=== PATIENT | female | born 1950 | race Caucasian/White ===

== ENCOUNTER 2016-12-04 14:34 | Inpatient (IN) | payer MEDICARE ==
[~2016-12-04] VITALS: Ht 167.6 cm; Wt 86.4 kg
[~2016-12-04 14:34] MED LIST: ALBU2.5V5 NEB; ASPI325T4 PO; ATOR20TA58 PO; BUPR150T6 PO; DICL75TA PO; FLUC10SU PO; FLUO10CA13 PO; GLIM4TAB2 PO; HYDR-971 PO; IRON45TA3 PO; LEVO112T4 PO; LEVO25TA4 PO; LISI1TAB7 PO; LISI2.5T PO; METF10002 PO; OXYC-323 PO; VENTOLIN HFA18 GM INH
[2016-12-04] MEDS ORDERED: IPRATRPIUM/ALBUTEROL 0.5/2.5MG 3 ML NEBU. NEB ONE (15:15)
[2016-12-04 15:43] LABS: BASO % 1 % (0-3); EOS % 1 % (0-3); HEMATOCRIT 28.7 % (36.0-47.0); HEMOGLOBIN 9.6 g/dL (12.0-15.5); LYMPH # 0.3 x10^3/uL (1.0-4.8); LYMPH % 8 % (24-48); MEAN CORPUSCULAR HEMOGLOBIN 30 pg (25-35); MEAN CORPUSCULAR HGB CONC 33 g/dL (31-37); MEAN CORPUSCULAR VOLUME 89 fL (79-100); MONO % 9 % (0-9); NEUT % 82 % (31-73); PLATELET COUNT 149 x10^3/uL (140-400); RED BLOOD COUNT 3.24 x10^6/uL (3.50-5.40); RED CELL DISTRIBUTION WIDTH 16.6 % (11.5-14.5); WHITE BLOOD COUNT 4.1 x10^3/uL (4.0-11.0)
[2016-12-04 16:11] LABS: % EOS 1 % (0-5)
[2016-12-04 16:13] LABS: PLT ESTIMATE ADEQUATE (ADEQUATE); POLYCHROMASIA SLIGHT; TOXIC GRANULATION MARKED; TOXIC VACUOLATION SLIGHT
[2016-12-04 16:16] LABS: CALCIUM 8.1 mg/dL (8.5-10.1); CREATININE 1.2 mg/dL (0.6-1.0); GFR 45.2; POTASSIUM 3.6 mmol/L (3.5-5.1)
[2016-12-04 16:22] LABS: ALBUMIN 3.2 g/dL (3.4-5.0); DIRECT BILIRUBIN 0.1 mg/dL (0.0-0.2); TOTAL BILIRUBIN 0.3 mg/dL (0.2-1.0); TOTAL PROTEIN 6.3 g/dL (6.4-8.2)
--- NOTE | 2016-12-04 17:48 | PHYS DOC ---
Past Medical History Past Medical History: Cancer, Diabetes-Type II, High Cholesterol, Hypertension Past Surgical History: Cancer Surgery, Hysterectomy, Knee Replacement, Other Additional Past Surgical Histo: left mastectomy, back x3, pin in toe, right knee replacement Alcohol Use: None Drug Use: None Adult General Chief Complaint Chief Complaint: SHORTNESS OF BREATH HPI HPI 65-year-old female presenting to the emergency department today with shortness of breath. This started approximately 10 PM last night. She complains of chest pain as well that is sharp worse with deep breaths and cough. Associated with a cough that is dry nonproductive. The pain is nonradiating. It is 8 out of 10. She has a history of breast cancer and currently is undergoing chemotherapy. Review of systems is negative for abdominal pain nausea vomiting. Positive for chest pain shortness of breath. All other review of systems is negative unless otherwise noted in history of present illness. Review of Systems Review of Systems SEE ABOVE. Current Medications Current Medications Current Medications Medications (Trade) Dose Ordered Sig/Avi Start Time Stop Time Status Last Admin Dose Admin Albuterol/ Ipratropium (Duoneb) 3 ml 1X ONCE 12/04/16 15:15 12/04/16 15:29 DC 12/04/16 16:31 3 ML Allergies Allergies Allergies Coded Allergies Type Severity Reaction Last Updated Verified simvastatin Adverse Reaction Intermediate MUSCLE CRAMPING 10/13/16 Yes Physical Exam Physical Exam Constitutional: Well developed, well nourished, tachypneic, non-toxic appearance. HENT: Normocephalic, atraumatic, bilateral external ears normal, oropharynx moist, no oral exudates, nose normal. [] Eyes: PERRLA, EOMI, conjunctiva normal, no discharge. [] Neck: Normal range of motion, no tenderness, supple, no stridor. Cardiovascular:Heart rate regular rhythm, no murmur [] Lungs & Thorax: Mild wheezing bilaterally. No crackles present. Abdomen: Bowel sounds normal, soft, no tenderness, no masses, no pulsatile masses. [] Skin: Warm, dry, no erythema, no rash. [] Back: No tenderness, no CVA tenderness. Extremities: No tenderness, no cyanosis, no clubbing, ROM intact, no edema. [] Neurologic: Alert and oriented X 3, normal motor function, normal sensory function, no focal deficits noted. Psychologic: Affect normal, judgement normal, mood normal. [] Current Patient Data Vital Signs Vital Signs Date Time Temp Pulse Resp B/P Pulse Ox O2 Delivery O2 Flow Rate FiO2 12/04/16 16:32 98 Room Air 12/04/16 15:37 98.6 97 24 119/53 98.6 Lab Values Laboratory Tests Test 12/04/16 15:14 White Blood Count 4.1x10^3/uL (4.0-11.0) Red Blood Count 3.24x10^6/uL (3.50-5.40) L Hemoglobin 9.6g/dL (12.0-15.5) L Hematocrit 28.7% (36.0-47.0) L Mean Corpuscular Volume 89fL (79-100) Mean Corpuscular Hemoglobin 30pg (25-35) Mean Corpuscular Hemoglobin Concent 33g/dL (31-37) Red Cell Distribution Width 16.6% (11.5-14.5) H Platelet Count 149x10^3/uL (140-400) Neutrophils (%) (Auto) 82% (31-73) H Lymphocytes (%) (Auto) 8% (24-48) L Monocytes (%) (Auto) 9% (0-9) Eosinophils (%) (Auto) 1% (0-3) Basophils (%) (Auto) 1% (0-3) Neutrophils # (Auto) 3.4x10^3uL (1.8-7.7) Lymphocytes # (Auto) 0.3x10^3/uL (1.0-4.8) L Monocytes # (Auto) 0.4x10^3/uL (0.0-1.1) Eosinophils # (Auto) 0.0x10^3/uL (0.0-0.7) Basophils # (Auto) 0.0x10^3/uL (0.0-0.2) Segmented Neutrophils % 51% (35-66) Band Neutrophils % 32% (0-9) H Lymphocytes % 9% (24-48) L Monocytes % 6% (0-10) Eosinophils % 1% (0-5) Myelocytes % 1% (0-0) H Toxic Granulation Marked Toxic Vacuolation Slight Dohle Bodies Few Platelet Estimate Adequate (ADEQUATE) Polychromasia Slight Sodium Level 137mmol/L (136-145) Potassium Level 3.6mmol/L (3.5-5.1) Chloride Level 100mmol/L (98-107) Carbon Dioxide Level 23mmol/L (21-32) Anion Gap 14 (6-14) Blood Urea Nitrogen 12mg/dL (7-20) Creatinine 1.2mg/dL (0.6-1.0) H Estimated GFR (Cockcroft-Gault) 45.2 Glucose Level 161mg/dL (70-99) H Calcium Level 8.1mg/dL (8.5-10.1) L Total Bilirubin 0.3mg/dL (0.2-1.0) Direct Bilirubin 0.1mg/dL (0.0-0.2) Aspartate Amino Transferase (AST) 12U/L (15-37) L Alanine Aminotransferase (ALT) 22U/L (14-59) Alkaline Phosphatase 29U/L (46-116) L Troponin I Quantitative < 0.017ng/mL (0.000-0.055) TF-Nrv-E-Type Natriuretic Peptide 77pg/mL (0-124) Total Protein 6.3g/dL (6.4-8.2) L Albumin 3.2g/dL (3.4-5.0) L Lipase 63U/L (73-393) L Laboratory Tests 12/04/16 15:14 Laboratory Tests 12/04/16 15:14 EKG EKG []EKG shows sinus rhythm with regular rate. Normal intervals. Normal axis. ST segments are congruent. Not suggestive of ACS. Reviewed by myself. Radiology/Procedures Radiology/Procedures [] Chest x-ray read by myself shows no obvious infiltrate or pneumothorax. Port in place currently. Course & Med Decision Making Course & Med Decision Making Pertinent Labs and Imaging studies reviewed. (See chart for details) [] 65-year-old female presenting to the emergency department today. Vital signs showed afebrile. Increased respiratory rate. Otherwise unremarkable. Physical exam showed wheezing in the lungs bilaterally. Chest x-ray unremarkable. EKG unremarkable. One work sent which showed bandemia. Mild anemia. Chemistry panel shows mildly elevated glucose mildly elevated creatinine. Otherwise unremarkable with a negative troponin. Patient was given duo nebs in the emergency department which mildly improved her symptoms. She was then admitted to our hospital for further evaluation workup and care. Dragon Disclaimer Dragon Disclaimer This electronic medical record was generated, in whole or in part, using a voice recognition dictation system. Departure Departure Impression: Primary Impression: Shortness of breath Additional Impressions: Tachypnea History of breast cancer Disposition: ADMITTED INPATIENT Admitting Physician: Other (reusch) Condition: STABLE Referrals: ZAYRA DISLA MD (PCP) Problem Qualifiers JENNY PARADA MD Dec 04, 2016 17:47
[2016-12-04] MEDS ORDERED: ONDANSETRON PF 4 MG/2 ML VIAL. IV PRN (18:30)
[2016-12-04] MEDS ORDERED: MORPHINE SULFATE 2 MG/ML DISP.SYRIN. IV PRN (18:30)
[2016-12-04 19:59] VITALS: BP 122/49
[2016-12-04] MEDS ORDERED: POTASSIUM CHLORIDE 20 MEQ in IV 1/2 NORMAL SALINE 1,000 ML IV SCH (21:45)
[2016-12-04] MEDS ORDERED: DEXTROSE 50% 25 GM / 50ML DISP.SYRIN. IV PRN (22:15)
[2016-12-04] MEDS: POTASSIUM CL 20MEQ-0.45% NACL 1,000 ML IV SCH (23:17)
[2016-12-04] MEDS: ATORVASTATIN CALCIUM 40 MG TABLET. PO SCH (23:17)
[2016-12-04] MEDS: OXYMETAZOLINE 0.05% NASAL SPRAY 30ML BOTTLE. NS SCH (23:17)
[2016-12-04 23:59] VITALS: BP 96/40
--- NOTE | 2016-12-05 00:03 | HP ---
ADMIT DATE: 12/04/2016 CHIEF COMPLAINT: Shortness of breath. HISTORY OF PRESENT ILLNESS: The patient is a 65-year-old woman, currently undergoing AC chemotherapy for breast cancer. Her most recent chemo was 1 week ago. She presented to the Emergency Room with severe shortness of breath. She relates that she had upper respiratory symptoms for the past 3 days, but shortness of breath became really bad last night at about 10:00 p.m. She also now has a sharp chest pain in the middle of her chest, worse with deep breathing and cough. She does have a frequent cough, which is dry and exacerbated by deep breathing. Pain is 8/10. Denies any fevers or chills. No sick family members, but she continues to work 7 days a week. PAST MEDICAL AND SURGICAL HISTORY: Breast cancer status post left mastectomy, currently on AC chemo status post cycle #3 one week ago, does receive Neulasta. Diabetes mellitus, hypertension, and hypercholesterolemia. Status post hysterectomy for bleeding, status post knee replacement as well as rods in her back for prolapsed discs, also pin in her left big toe. FAMILY HISTORY: Positive for diabetes mellitus in father. Only other breast cancer is in her paternal aunts who had breast cancer in her 30s. 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 Never smoked. No toxic habits. ALLERGIES: SIMVASTATIN. MEDICATIONS: MAR reconciled with home medications. REVIEW OF SYSTEMS: Positive as per HPI. Positive nasal congestion and voice changes in the past couple of days. PHYSICAL EXAMINATION: VITAL SIGNS: From today show a blood pressure of 122/49, heart rate at 94, respiratory rate at 22, although up to 30 in the Emergency Room, she is afebrile. GENERAL: This is a 65-year-old woman, alert and oriented, no acute distress. HEENT: Shows no scleral icterus. Oral mucosa is pink and moist. NECK: Supple, without any palpable lymphadenopathy. LUNGS: Clear to auscultation bilaterally. No wheezing, but coughing with deep breathing. HEART: Regular rate and rhythm. ABDOMEN: Obese, positive bowel sounds, soft, nontender. EXTREMITIES: Show no edema, no clubbing, no cyanosis. SKIN: Warm, soft and dry without any rash. LABORATORY DATA: CBC from today shows a WBC of 4.1 with a manual differential of 51 segs, 32 bands, 1 myelocyte, hemoglobin of 9.6, MCV of 89, platelet count at 149. Chemistries with a BUN and creatinine of 12 and 1.2 with normal electrolytes. LFTs within normal. Albumin at 3.2. IMAGING STUDIES: Chest x-ray in the Emergency Room was obtained and interpreted by myself, shows no focal infiltrate. Port is in the right chest. ASSESSMENT AND PLAN: The patient is a 65-year-old woman presenting with what appears to be a viral respiratory syndrome and pleuritis in the setting of borderline low WBC after chemotherapy. We will treat her symptomatically with albuterol, oxygen, Tylenol #3 for cough. We will cover with Levaquin empirically secondary to low counts. However, suspect that this will clear up fairly quickly and antibiotics can be stopped. She does have diabetes mellitus which is worsened by steroids after the chemotherapy. We will monitor closely and continue all her home medications. Add insulin sliding scale. Hypertension, currently is well controlled on home regimen. We will continue here. We will continue her statin for hypercholesterolemia as well as her antidepressants. Prophylaxis will be instituted with PPI and Lovenox. CHRIS OLEARY MD DR: UR/nts JOB#: [id number] / [id number] ZAYRA Infante MD
[2016-12-05] MEDS: OXYCODONE/APAP 5/325 TABLET. PO PRN ×2 (00:25→08:09)
[2016-12-05 03:04] VITALS: BP 109/49
[2016-12-05 05:40] LABS: BASO # 0.1 x10^3/uL (0.0-0.2); BASO % 1 % (0-3); EOS % 0 % (0-3); HEMATOCRIT 24.5 % (36.0-47.0); HEMOGLOBIN 8.4 g/dL (12.0-15.5); LYMPH # 0.4 x10^3/uL (1.0-4.8); LYMPH % 6 % (24-48); MEAN CORPUSCULAR HEMOGLOBIN 30 pg (25-35); MEAN CORPUSCULAR HGB CONC 34 g/dL (31-37); MEAN CORPUSCULAR VOLUME 89 fL (79-100); MONO % 7 % (0-9); NEUT % 86 % (31-73); PLATELET COUNT 180 x10^3/uL (140-400); RED BLOOD COUNT 2.76 x10^6/uL (3.50-5.40); RED CELL DISTRIBUTION WIDTH 16.5 % (11.5-14.5); WHITE BLOOD COUNT 7.5 x10^3/uL (4.0-11.0)
[2016-12-05 05:55] LABS: CALCIUM 8.1 mg/dL (8.5-10.1); GFR 55.8; POTASSIUM 3.6 mmol/L (3.5-5.1)
[2016-12-05] MEDS: LEVOTHYROXINE 112 MCG TABLET PO SCH (06:33)
[2016-12-05 07:00] VITALS: BP 102/55
[2016-12-05] MEDS: ALBUTEROL SULFATE 2.5 MG/3 ML NEBU. NEB SCH ×4 (07:18→19:31)
[2016-12-05] MEDS ORDERED: FERROUS SULFATE 325 MG TABLET PO SCH (08:00)
[2016-12-05] MEDS: INSULIN ASPART 300 UNITS/3 ML INSULN.PEN SQ SCH ×3 (08:00→17:11)
[2016-12-05] MEDS: PANTOPRAZOLE 40 MG TABLET. PO SCH (08:09)
[2016-12-05] MEDS: GLIMEPIRIDE 2 MG TABLET PO SCH ×2 (08:09→17:09)
[2016-12-05] MEDS: METFORMIN 1,000 MG TABLET PO SCH ×2 (08:09→17:09)
[2016-12-05] MEDS: FLUOXETINE HCL 20 MG CAPSULE PO SCH (08:10)
--- NOTE | 2016-12-05 08:37 | EKG ---
[facility] [address] [place] [address] Test Date: 2016-12-04 Test Time: 15:06:27 Pat Name: LUDMILA MUÑIZ Department: Room: Gender: F Network Designer: : 1950 Requested By: JENNY PARADA Order Number: [id number] Reading MD: Measurements Intervals [place] Rate: 94 P: -90 ND: 172 QRS: 26 QRSD: 86 T: 109 QT: 364 QTc: 455 Interpretive Statements SINUS RHYTHM INCOMPLETE RIGHT BUNDLE BRANCH BLOCK T ABNORMALITY IN ANTERIOR LEADS HIGH LATERAL LEADS RI6.01 Unconfirmed report No previous ECG available for comparison
[2016-12-05] MEDS: LISINOPRIL 40 MG TABLET. PO SCH (09:00)
[2016-12-05] MEDS: HYDROCHLOROTHIAZIDE 25 MG TABLET PO SCH (09:00)
[2016-12-05] MEDS: ASPIRIN 325 MG TABLET PO SCH (10:34)
[2016-12-05] MEDS: ENOXAPARIN 40 MG/0.4 ML DISP.SYRIN. SQ SCH (10:34)
[2016-12-05] MEDS: OXYMETAZOLINE 0.05% NASAL SPRAY 30ML BOTTLE. NS SCH ×2 (10:45→21:02)
--- NOTE | 2016-12-05 10:57 | RAD ---
AP portable chest radiograph 12/04/2016 Clinical History: Cough and shortness of breath. An AP portable erect digital radiograph of the chest was obtained. Comparison study is dated 10/13/2016. A right subclavian Yaqhut-f-Eisv type catheter is unchanged position. The cardiac silhouette is normal in size. Atherosclerotic calcification of the thoracic aorta is seen. The thoracic aorta is mildly tortuous. No acute pulmonary infiltrate is seen. No pleural effusion or pneumothorax is noted. The osseous structures are unchanged. Impression: No acute abnormality is seen.
[2016-12-05 11:00] VITALS: BP 99/55
[2016-12-05] MEDS: ACETAMINOPHEN/CODEINE 300/30MG TABLET PO PRN ×2 (13:33→21:02)
[2016-12-05] MEDS: POTASSIUM CL 20MEQ-0.45% NACL 1,000 ML IV SCH (14:27)
[2016-12-05 15:00] VITALS: BP 97/49
--- NOTE | 2016-12-05 16:10 | PDOC ---
PROGRESS NOTES Chief Complaint Chief Complaint URI ASSESSMENT AND PLAN: 1. Viral URI: clinically improved. treat symptomatically with albuterol, oxygen, Tylenol #3 for cough. 2. Neutropenia: borderline, resolved. no fevers; stop Abx 3. Anemia: 2/2 chemo and dilution. monitor for now. 4. DM: fair control. home meds plus ISS; recent steroids post chemo for 4 days 5. HTN: well controlled on home regimen 6. HLD: on statin 7. Depression: stable mood. cont SSRI 8. Prophylaxis: PPI, lovenox 9. Breast CA: currently on dosedense AC. notify Dr Campbell in AM Vitals Vitals Vital Signs Date Time Temp Pulse Resp B/P Pulse Ox O2 Delivery O2 Flow Rate FiO2 12/05/16 15:02 96 Room Air 12/05/16 15:00 99.7 90 20 97/49 99.7 Physical Exam General: Alert, Oriented X3, Cooperative Heart: Regular rate Lungs: Clear, Other Abdomen: Normal bowel sounds, Soft, No tenderness Extremities: No edema Skin: No rashes Labs LABS Laboratory Tests Test 12/05/16 05:00 12/05/16 08:08 12/05/16 11:56 White Blood Count 7.5x10^3/uL (4.0-11.0) Red Blood Count 2.76x10^6/uL (3.50-5.40) Hemoglobin 8.4g/dL (12.0-15.5) Hematocrit 24.5% (36.0-47.0) Mean Corpuscular Volume 89fL (79-100) Mean Corpuscular Hemoglobin 30pg (25-35) Mean Corpuscular Hemoglobin Concent 34g/dL (31-37) Red Cell Distribution Width 16.5% (11.5-14.5) Platelet Count 180x10^3/uL (140-400) Neutrophils (%) (Auto) 86% (31-73) Lymphocytes (%) (Auto) 6% (24-48) Monocytes (%) (Auto) 7% (0-9) Eosinophils (%) (Auto) 0% (0-3) Basophils (%) (Auto) 1% (0-3) Neutrophils # (Auto) 6.5x10^3uL (1.8-7.7) Lymphocytes # (Auto) 0.4x10^3/uL (1.0-4.8) Monocytes # (Auto) 0.5x10^3/uL (0.0-1.1) Eosinophils # (Auto) 0.0x10^3/uL (0.0-0.7) Basophils # (Auto) 0.1x10^3/uL (0.0-0.2) Sodium Level 134mmol/L (136-145) Potassium Level 3.6mmol/L (3.5-5.1) Chloride Level 98mmol/L (98-107) Carbon Dioxide Level 25mmol/L (21-32) Anion Gap 11 (6-14) Blood Urea Nitrogen 12mg/dL (7-20) Creatinine 1.0mg/dL (0.6-1.0) Estimated GFR (Cockcroft-Gault) 55.8 Glucose Level 178mg/dL (70-99) Calcium Level 8.1mg/dL (8.5-10.1) Glucose (Fingerstick) 214mg/dL (70-99) 189mg/dL (70-99) Review of Systems Review of Systems feels a little better. cough improved w/ tylenol. breathing easier CHRIS OLEARY MD Dec 05, 2016 16:10
[2016-12-05 19:00] VITALS: BP 110/46
[2016-12-05] MEDS: ATORVASTATIN CALCIUM 40 MG TABLET. PO SCH (21:02)
[2016-12-05] MEDS: FERROUS SULFATE 325 MG TABLET PO SCH (21:02)
[2016-12-05 23:00] VITALS: BP 105/50
[2016-12-06] MEDS: ACETAMINOPHEN/CODEINE 300/30MG TABLET PO PRN ×3 (02:53→16:41)
[2016-12-06] MEDS: POTASSIUM CL 20MEQ-0.45% NACL 1,000 ML IV SCH ×2 (02:53→22:56)
[2016-12-06 03:00] VITALS: BP 111/51
[2016-12-06] MEDS: LEVOTHYROXINE 112 MCG TABLET PO SCH (06:05)
[2016-12-06 06:25] LABS: BASO % 0 % (0-3); EOS % 0 % (0-3); HEMATOCRIT 21.4 % (36.0-47.0); HEMOGLOBIN 7.5 g/dL (12.0-15.5); LYMPH # 0.3 x10^3/uL (1.0-4.8); LYMPH % 3 % (24-48); MEAN CORPUSCULAR HEMOGLOBIN 30 pg (25-35); MEAN CORPUSCULAR HGB CONC 35 g/dL (31-37); MEAN CORPUSCULAR VOLUME 86 fL (79-100); MONO % 5 % (0-9); NEUT % 91 % (31-73); PLATELET COUNT 182 x10^3/uL (140-400); RED BLOOD COUNT 2.48 x10^6/uL (3.50-5.40); RED CELL DISTRIBUTION WIDTH 17.2 % (11.5-14.5)
[2016-12-06 06:39] LABS: CALCIUM 7.6 mg/dL (8.5-10.1); CREATININE 0.9 mg/dL (0.6-1.0); POTASSIUM 3.5 mmol/L (3.5-5.1)
[2016-12-06 07:48] VITALS: BP 100/53
[2016-12-06] MEDS: ALBUTEROL SULFATE 2.5 MG/3 ML NEBU. NEB SCH ×4 (08:24→19:55)
[2016-12-06] MEDS: ASPIRIN 325 MG TABLET PO SCH (09:22)
[2016-12-06] MEDS: FLUOXETINE HCL 20 MG CAPSULE PO SCH (09:23)
[2016-12-06] MEDS: LISINOPRIL 40 MG TABLET. PO SCH (09:23)
[2016-12-06] MEDS: GLIMEPIRIDE 2 MG TABLET PO SCH ×2 (09:23→16:42)
[2016-12-06] MEDS: METFORMIN 1,000 MG TABLET PO SCH ×2 (09:24→16:41)
[2016-12-06] MEDS: PANTOPRAZOLE 40 MG TABLET. PO SCH (09:24)
[2016-12-06] MEDS: HYDROCHLOROTHIAZIDE 25 MG TABLET PO SCH (09:24)
[2016-12-06] MEDS: ENOXAPARIN 40 MG/0.4 ML DISP.SYRIN. SQ SCH (09:27)
[2016-12-06] MEDS: OXYMETAZOLINE 0.05% NASAL SPRAY 30ML BOTTLE. NS SCH ×2 (09:27→23:00)
[2016-12-06] MEDS: INSULIN ASPART 300 UNITS/3 ML INSULN.PEN SQ SCH ×3 (09:30→17:00)
[2016-12-06 10:34] VITALS: BP 106/53
--- NOTE | 2016-12-06 11:57 | PDOC ---
PROGRESS NOTES Chief Complaint Chief Complaint URI History of Present Illness History of Present Illness Assessment 1. Viral URI 2. Neutropenia 3. Anemia 4. DM 5. HTN 6. HLD 7. Depression 8. Prophylaxis 9. Breast CA Vitals Vitals Vital Signs Date Time Temp Pulse Resp B/P Pulse Ox O2 Delivery O2 Flow Rate FiO2 12/06/16 10:35 100 Room Air 2.0 12/06/16 10:34 98.3 88 20 106/53 98.3 Physical Exam General: Alert, Oriented X3, Cooperative Heart: Regular rate, No murmurs Lungs: Clear, Other Abdomen: Normal bowel sounds, Soft, No tenderness Extremities: No cyanosis, No edema Skin: No rashes, No breakdown Labs LABS Laboratory Tests Test 12/05/16 11:56 12/05/16 16:46 12/05/16 21:47 12/06/16 06:00 Glucose (Fingerstick) 189mg/dL (70-99) 166mg/dL (70-99) 202mg/dL (70-99) White Blood Count 9.0x10^3/uL (4.0-11.0) Red Blood Count 2.48x10^6/uL (3.50-5.40) Hemoglobin 7.5g/dL (12.0-15.5) Hematocrit 21.4% (36.0-47.0) Mean Corpuscular Volume 86fL (79-100) Mean Corpuscular Hemoglobin 30pg (25-35) Mean Corpuscular Hemoglobin Concent 35g/dL (31-37) Red Cell Distribution Width 17.2% (11.5-14.5) Platelet Count 182x10^3/uL (140-400) Neutrophils (%) (Auto) 91% (31-73) Lymphocytes (%) (Auto) 3% (24-48) Monocytes (%) (Auto) 5% (0-9) Eosinophils (%) (Auto) 0% (0-3) Basophils (%) (Auto) 0% (0-3) Neutrophils # (Auto) 8.2x10^3uL (1.8-7.7) Lymphocytes # (Auto) 0.3x10^3/uL (1.0-4.8) Monocytes # (Auto) 0.4x10^3/uL (0.0-1.1) Eosinophils # (Auto) 0.0x10^3/uL (0.0-0.7) Basophils # (Auto) 0.0x10^3/uL (0.0-0.2) Sodium Level 132mmol/L (136-145) Potassium Level 3.5mmol/L (3.5-5.1) Chloride Level 100mmol/L (98-107) Carbon Dioxide Level 24mmol/L (21-32) Anion Gap 8 (6-14) Blood Urea Nitrogen 10mg/dL (7-20) Creatinine 0.9mg/dL (0.6-1.0) Estimated GFR (Cockcroft-Gault) 63.0 Glucose Level 192mg/dL (70-99) Calcium Level 7.6mg/dL (8.5-10.1) Test 12/06/16 07:57 12/06/16 11:35 Glucose (Fingerstick) 157mg/dL (70-99) 160mg/dL (70-99) Review of Systems Review of Systems Complains of cough Complains of SOA Assessment and Plan Assessmemt and Plan Problems Medical Problems: (1) History of breast cancer Status: Acute (2) Shortness of breath Status: Acute (3) Tachypnea Status: Acute ASSESSMENT AND PLAN: 1. Viral URI: clinically improved. treat symptomatically with albuterol, oxygen, Tylenol #3 for cough. 2. Neutropenia: borderline, resolved. no fevers; stop Abx 3. Anemia: 2/2 chemo and dilution. monitor for now. 4. DM: fair control. home meds plus ISS; recent steroids post chemo for 4 days 5. HTN: well controlled on home regimen 6. HLD: on statin 7. Depression: stable mood. cont SSRI 8. Prophylaxis: PPI, lovenox 9. Breast CA: currently on dosedense AC. notify Dr Campbell in AM Recheck labs in AM Continue fluids Consult bander operator Dr. Cedeño Appreciate subspecialist input Problems: Comment Review of Relevant I have reviewed the following items moise (where applicable) has been applied. Labs Laboratory Tests Test 12/04/16 15:14 12/05/16 05:00 12/05/16 08:08 12/05/16 11:56 White Blood Count 4.1x10^3/uL (4.0-11.0) 7.5x10^3/uL (4.0-11.0) Red Blood Count 3.24x10^6/uL (3.50-5.40) 2.76x10^6/uL (3.50-5.40) Hemoglobin 9.6g/dL (12.0-15.5) 8.4g/dL (12.0-15.5) Hematocrit 28.7% (36.0-47.0) 24.5% (36.0-47.0) Mean Corpuscular Volume 89fL (79-100) 89fL (79-100) Mean Corpuscular Hemoglobin 30pg (25-35) 30pg (25-35) Mean Corpuscular Hemoglobin Concent 33g/dL (31-37) 34g/dL (31-37) Red Cell Distribution Width 16.6% (11.5-14.5) 16.5% (11.5-14.5) Platelet Count 149x10^3/uL (140-400) 180x10^3/uL (140-400) Neutrophils (%) (Auto) 82% (31-73) 86% (31-73) Lymphocytes (%) (Auto) 8% (24-48) 6% (24-48) Monocytes (%) (Auto) 9% (0-9) 7% (0-9) Eosinophils (%) (Auto) 1% (0-3) 0% (0-3) Basophils (%) (Auto) 1% (0-3) 1% (0-3) Neutrophils # (Auto) 3.4x10^3uL (1.8-7.7) 6.5x10^3uL (1.8-7.7) Lymphocytes # (Auto) 0.3x10^3/uL (1.0-4.8) 0.4x10^3/uL (1.0-4.8) Monocytes # (Auto) 0.4x10^3/uL (0.0-1.1) 0.5x10^3/uL (0.0-1.1) Eosinophils # (Auto) 0.0x10^3/uL (0.0-0.7) 0.0x10^3/uL (0.0-0.7) Basophils # (Auto) 0.0x10^3/uL (0.0-0.2) 0.1x10^3/uL (0.0-0.2) Segmented Neutrophils % 51% (35-66) Band Neutrophils % 32% (0-9) Lymphocytes % 9% (24-48) Monocytes % 6% (0-10) Eosinophils % 1% (0-5) Myelocytes % 1% (0-0) Toxic Granulation Marked Toxic Vacuolation Slight Dohle Bodies Few Platelet Estimate Adequate (ADEQUATE) Polychromasia Slight Sodium Level 137mmol/L (136-145) 134mmol/L (136-145) Potassium Level 3.6mmol/L (3.5-5.1) 3.6mmol/L (3.5-5.1) Chloride Level 100mmol/L (98-107) 98mmol/L (98-107) Carbon Dioxide Level 23mmol/L (21-32) 25mmol/L (21-32) Anion Gap 14 (6-14) 11 (6-14) Blood Urea Nitrogen 12mg/dL (7-20) 12mg/dL (7-20) Creatinine 1.2mg/dL (0.6-1.0) 1.0mg/dL (0.6-1.0) Estimated GFR (Cockcroft-Gault) 45.2 55.8 Glucose Level 161mg/dL (70-99) 178mg/dL (70-99) Calcium Level 8.1mg/dL (8.5-10.1) 8.1mg/dL (8.5-10.1) Total Bilirubin 0.3mg/dL (0.2-1.0) Direct Bilirubin 0.1mg/dL (0.0-0.2) Aspartate Amino Transf (AST/SGOT) 12U/L (15-37) Alanine Aminotransferase (ALT/SGPT) 22U/L (14-59) Alkaline Phosphatase 29U/L (46-116) Troponin I Quantitative < 0.017ng/mL (0.000-0.055) KD-Qun-O-Type Natriuretic Peptide 77pg/mL (0-124) Total Protein 6.3g/dL (6.4-8.2) Albumin 3.2g/dL (3.4-5.0) Lipase 63U/L (73-393) Glucose (Fingerstick) 214mg/dL (70-99) 189mg/dL (70-99) Test 12/05/16 16:46 12/05/16 21:47 12/06/16 06:00 12/06/16 07:57 Glucose (Fingerstick) 166mg/dL (70-99) 202mg/dL (70-99) 157mg/dL (70-99) White Blood Count 9.0x10^3/uL (4.0-11.0) Red Blood Count 2.48x10^6/uL (3.50-5.40) Hemoglobin 7.5g/dL (12.0-15.5) Hematocrit 21.4% (36.0-47.0) Mean Corpuscular Volume 86fL (79-100) Mean Corpuscular Hemoglobin 30pg (25-35) Mean Corpuscular Hemoglobin Concent 35g/dL (31-37) Red Cell Distribution Width 17.2% (11.5-14.5) Platelet Count 182x10^3/uL (140-400) Neutrophils (%) (Auto) 91% (31-73) Lymphocytes (%) (Auto) 3% (24-48) Monocytes (%) (Auto) 5% (0-9) Eosinophils (%) (Auto) 0% (0-3) Basophils (%) (Auto) 0% (0-3) Neutrophils # (Auto) 8.2x10^3uL (1.8-7.7) Lymphocytes # (Auto) 0.3x10^3/uL (1.0-4.8) Monocytes # (Auto) 0.4x10^3/uL (0.0-1.1) Eosinophils # (Auto) 0.0x10^3/uL (0.0-0.7) Basophils # (Auto) 0.0x10^3/uL (0.0-0.2) Sodium Level 132mmol/L (136-145) Potassium Level 3.5mmol/L (3.5-5.1) Chloride Level 100mmol/L (98-107) Carbon Dioxide Level 24mmol/L (21-32) Anion Gap 8 (6-14) Blood Urea Nitrogen 10mg/dL (7-20) Creatinine 0.9mg/dL (0.6-1.0) Estimated GFR (Cockcroft-Gault) 63.0 Glucose Level 192mg/dL (70-99) Calcium Level 7.6mg/dL (8.5-10.1) Test 12/06/16 11:35 Glucose (Fingerstick) 160mg/dL (70-99) Laboratory Tests Test 12/05/16 11:56 12/05/16 16:46 12/05/16 21:47 12/06/16 06:00 Glucose (Fingerstick) 189mg/dL (70-99) 166mg/dL (70-99) 202mg/dL (70-99) White Blood Count 9.0x10^3/uL (4.0-11.0) Red Blood Count 2.48x10^6/uL (3.50-5.40) Hemoglobin 7.5g/dL (12.0-15.5) Hematocrit 21.4% (36.0-47.0) Mean Corpuscular Volume 86fL (79-100) Mean Corpuscular Hemoglobin 30pg (25-35) Mean Corpuscular Hemoglobin Concent 35g/dL (31-37) Red Cell Distribution Width 17.2% (11.5-14.5) Platelet Count 182x10^3/uL (140-400) Neutrophils (%) (Auto) 91% (31-73) Lymphocytes (%) (Auto) 3% (24-48) Monocytes (%) (Auto) 5% (0-9) Eosinophils (%) (Auto) 0% (0-3) Basophils (%) (Auto) 0% (0-3) Neutrophils # (Auto) 8.2x10^3uL (1.8-7.7) Lymphocytes # (Auto) 0.3x10^3/uL (1.0-4.8) Monocytes # (Auto) 0.4x10^3/uL (0.0-1.1) Eosinophils # (Auto) 0.0x10^3/uL (0.0-0.7) Basophils # (Auto) 0.0x10^3/uL (0.0-0.2) Sodium Level 132mmol/L (136-145) Potassium Level 3.5mmol/L (3.5-5.1) Chloride Level 100mmol/L (98-107) Carbon Dioxide Level 24mmol/L (21-32) Anion Gap 8 (6-14) Blood Urea Nitrogen 10mg/dL (7-20) Creatinine 0.9mg/dL (0.6-1.0) Estimated GFR (Cockcroft-Gault) 63.0 Glucose Level 192mg/dL (70-99) Calcium Level 7.6mg/dL (8.5-10.1) Test 12/06/16 07:57 12/06/16 11:35 Glucose (Fingerstick) 157mg/dL (70-99) 160mg/dL (70-99) Microbiology 12/04/16 Blood Culture - Preliminary, Resulted NO GROWTH AFTER 1 DAY Medications Current Medications Albuterol/ Ipratropium (Duoneb) 3 ml 1X ONCE NEB Last administered on 16:31; Start 12/04/16 at 15:15; Stop 12/04/16 at 15:29; Status DC Ondansetron HCl (Zofran) 4 mg PRN Q8HRS PRN IV NAUSEA/VOMITING; Start 12/04/16 at 18:30; Stop 12/05/16 at 18:29; Status DC Morphine Sulfate 2 mg PRN Q2HR PRN IV PAIN; Start 12/04/16 at 18:30; Stop at 21:49; Status DC Albuterol Sulfate (Ventolin Neb Soln) 2.5 mg RTQID NEB Last administered on 12/06 08:24; Start 12/05/16 at 08:00 Acetaminophen/ Codeine Phosphate 1 tab 1 tab PRN Q4HRS PRN PO cough Last administered on 12/06/16 09:34; Start 12/04/16 at 21:45 Potassium Chloride 20 meq/ Sodium Chloride 1,010 ml @ 75 mls/hr [id number] IV ; Start 12/04/16 at 21:45; Status UNV Potassium Chloride/Sodium Chloride (KCl 20 Meq-0.45% Nacl) 1,000 ml @ 75 mls/ hr [id number] IV Last administered on 12/06/16 02:53; Start 12/04/16 at 22:00 Aspirin (Eva Aspirin) 325 mg DAILY PO Last administered on 12/06/16 09:22; Start 12/05/16 at 09:00 Atorvastatin Calcium (Lipitor) 40 mg QHS PO Last administered on 12/05/16 21:02 ; Start 12/04/16 at 22:30 Fluoxetine HCl (Prozac) 80 mg DAILYWBKFT PO Last administered on 12/06/16 09:23 ; Start 12/05/16 at 08:00 Levothyroxine Sodium (Synthroid) 112 mcg DAILY07 PO Last administered on 06:05; Start 12/05/16 at 07:00 Metformin HCl (Glucophage) 1,000 mg BIDWMEALS PO Last administered on 12/06/16 09:24; Start 12/05/16 at 08:00 Oxycodone/ Acetaminophen (Percocet 5/325) 1 tab PRN Q4HRS PRN PO SEVERE PAIN Last administered on 12/05/16 08:09; Start 12/04/16 at 22:00 Glimepiride (Amaryl) 4 mg BIDWMEALS PO Last administered on 12/06/16 09:23; Start 12/05/16 at 08:00 Ferrous Sulfate (Feosol) 325 mg DAILYWBKFT PO Last administered on 12/05/16 08: 09; Start 12/05/16 at 08:00; Stop 12/05/16 at 17:42; Status DC Lisinopril (Prinivil) 40 mg DAILY PO Last administered on 12/06/16 09:23; Start 12/05/16 at 09:00 Oxymetazoline HCl (Afrin) 2 spray BID NS Last administered on 12/06/16 09:27; Start 12/04/16 at 23:00 Hydrochlorothiazide (Hydrodiuril) 50 mg DAILY PO Last administered on 12/06/16 09:24; Start 12/05/16 at 09:00 Insulin Aspart (Novolog) 0-5 UNITS TIDWMEALS SQ Last administered on 12/06/16 09:30; Start 12/05/16 at 08:00 Dextrose 12.5 gm PRN Q15MIN PRN IV SEE COMMENTS; Start 12/04/16 at 22:15 Enoxaparin Sodium (Lovenox 40mg Syringe) 40 mg Q24H SQ Last administered on 12/06 09:27; Start 12/05/16 at 09:00 Pantoprazole Sodium (Protonix) 40 mg DAILYAC PO Last administered on 12/06/16 09:24; Start 12/05/16 at 07:30 Ferrous Sulfate (Feosol) 325 mg QHS PO Last administered on 12/05/16 21:02; Start 12/05/16 at 21:00 Active Scripts Active Reported Percocet 5-325 Mg Tablet (Oxycodone/Acetaminophen) 1 Each Tablet 1 Tab PO Q4HRS PRN Ventolin Hfa Inhaler (Albuterol Sulfate) 18 Gm Hfa.aer.ad 2 Puff INH Q4HRS Albuterol Sulfate Neb Soln (Albuterol Sulfate) 2.5 Mg/3 Ml Vial.neb 1 Vial NEB PRN Q4HRS Aspirin 325 Mg Tablet 325 Mg PO DAILY Levothyroxine Sodium 112 Mcg Tablet 112 Mcg PO DAILYAC Lisinopril-Hctz 20-25 Mg Tab (Lisinopril/Hydrochlorothiazide) 1 Each Tablet 2 Tab PO DAILY Feosol (Iron,Carbonyl) 45 Mg Tablet 325 Mg PO DAILY Glimepiride 4 Mg Tablet 1 Tab PO BID Atorvastatin Calcium 20 Mg Tablet 40 Mg PO HS Prozac (Fluoxetine Hcl) 10 Mg Capsule 80 Mg PO DAILYWBKFT Metformin Hcl 1,000 Mg Tablet 1 Tab PO BID Vitals/I & O Vital Sign - Last 24 Hours 12/05/16 12/05/16 12/05/16 12/05/16 13:33 15:00 15:02 19:00 Temp 99.7 99.3 99.7 99.3 Pulse 90 95 Resp 20 18 B/P 97/49 110/46 Pulse Ox 94 96 96 O2 Delivery Room Air Room Air Room Air Room Air 12/05/16 12/05/16 12/05/16 12/05/16 19:32 21:00 21:02 23:00 Temp 98.7 98.7 Pulse 90 Resp 20 20 B/P 105/50 Pulse Ox 94 91 O2 Delivery Room Air Room Air Room Air Room Air 12/06/16 12/06/16 12/06/16 12/06/16 02:53 03:00 03:53 07:48 Temp 98.0 98.2 98.0 98.2 Pulse 90 83 Resp 24 22 18 B/P 111/51 100/53 Pulse Ox 93 96 O2 Delivery Room Air Room Air Room Air 12/06/16 12/06/16 12/06/16 12/06/16 08:24 09:23 09:34 10:34 Temp 98.3 98.3 Pulse 83 88 Resp 20 B/P 100/53 106/53 Pulse Ox 89 89 100 O2 Delivery Room Air Room Air Nasal Cannula O2 Flow Rate 2.0 12/06/16 10:35 Pulse Ox 100 O2 Delivery Room Air O2 Flow Rate 2.0 Intake and Output 12/05/16 12/05/16 12/06/16 15:00 23:00 07:00 Intake Total 1000 ml Balance 1000 ml JENI MCDANIEL III DO Dec 06, 2016 11:57
--- NOTE | 2016-12-06 13:55 | PDOC2 ---
CONSULT Date of Consult Date of Consult DATE: 12/06/16 TIME: 13:49 Past Medical History Cardiovascular: HTN Pulmonary: No pertinent hx GI: Other Renal/: Acute renal failure Past Surgical History Past Surgical History: Total knee replacement, Hysterectomy Family History Family History: No Significant Social History ALCOHOL: none Current Problem List Problem List Problems Medical Problems: (1) History of breast cancer Status: Acute (2) Shortness of breath Status: Acute (3) Tachypnea Status: Acute Current Medications Current Medications Current Medications Albuterol/ Ipratropium (Duoneb) 3 ml 1X ONCE NEB Last administered on 16:31; Start 12/04/16 at 15:15; Stop 12/04/16 at 15:29; Status DC Ondansetron HCl (Zofran) 4 mg PRN Q8HRS PRN IV NAUSEA/VOMITING; Start 12/04/16 at 18:30; Stop 12/05/16 at 18:29; Status DC Morphine Sulfate 2 mg PRN Q2HR PRN IV PAIN; Start 12/04/16 at 18:30; Stop at 21:49; Status DC Albuterol Sulfate (Ventolin Neb Soln) 2.5 mg RTQID NEB Last administered on 12/06 11:53; Start 12/05/16 at 08:00 Acetaminophen/ Codeine Phosphate 1 tab 1 tab PRN Q4HRS PRN PO cough Last administered on 12/06/16 09:34; Start 12/04/16 at 21:45 Potassium Chloride 20 meq/ Sodium Chloride 1,010 ml @ 75 mls/hr [id number] IV ; Start 12/04/16 at 21:45; Status UNV Potassium Chloride/Sodium Chloride (KCl 20 Meq-0.45% Nacl) 1,000 ml @ 75 mls/ hr [id number] IV Last administered on 12/06/16 02:53; Start 12/04/16 at 22:00 Aspirin (Eva Aspirin) 325 mg DAILY PO Last administered on 12/06/16 09:22; Start 12/05/16 at 09:00 Atorvastatin Calcium (Lipitor) 40 mg QHS PO Last administered on 12/05/16 21:02 ; Start 12/04/16 at 22:30 Fluoxetine HCl (Prozac) 80 mg DAILYWBKFT PO Last administered on 12/06/16 09:23 ; Start 12/05/16 at 08:00 Levothyroxine Sodium (Synthroid) 112 mcg DAILY07 PO Last administered on 06:05; Start 12/05/16 at 07:00 Metformin HCl (Glucophage) 1,000 mg BIDWMEALS PO Last administered on 12/06/16 09:24; Start 12/05/16 at 08:00 Oxycodone/ Acetaminophen (Percocet 5/325) 1 tab PRN Q4HRS PRN PO SEVERE PAIN Last administered on 12/05/16 08:09; Start 12/04/16 at 22:00 Glimepiride (Amaryl) 4 mg BIDWMEALS PO Last administered on 12/06/16 09:23; Start 12/05/16 at 08:00 Ferrous Sulfate (Feosol) 325 mg DAILYWBKFT PO Last administered on 12/05/16 08: 09; Start 12/05/16 at 08:00; Stop 12/05/16 at 17:42; Status DC Lisinopril (Prinivil) 40 mg DAILY PO Last administered on 12/06/16 09:23; Start 12/05/16 at 09:00 Oxymetazoline HCl (Afrin) 2 spray BID NS Last administered on 12/06/16 09:27; Start 12/04/16 at 23:00 Hydrochlorothiazide (Hydrodiuril) 50 mg DAILY PO Last administered on 12/06/16 09:24; Start 12/05/16 at 09:00 Insulin Aspart (Novolog) 0-5 UNITS TIDWMEALS SQ Last administered on 12/06/16 12:53; Start 12/05/16 at 08:00 Dextrose 12.5 gm PRN Q15MIN PRN IV SEE COMMENTS; Start 12/04/16 at 22:15 Enoxaparin Sodium (Lovenox 40mg Syringe) 40 mg Q24H SQ Last administered on 12/06 09:27; Start 12/05/16 at 09:00 Pantoprazole Sodium (Protonix) 40 mg DAILYAC PO Last administered on 12/06/16 09:24; Start 12/05/16 at 07:30 Ferrous Sulfate (Feosol) 325 mg QHS PO Last administered on 12/05/16t 21:02; Start 12/05/16 at 21:00 Active Scripts Active Reported Percocet 5-325 Mg Tablet (Oxycodone/Acetaminophen) 1 Each Tablet 1 Tab PO Q4HRS PRN Ventolin Hfa Inhaler (Albuterol Sulfate) 18 Gm Hfa.aer.ad 2 Puff INH Q4HRS Albuterol Sulfate Neb Soln (Albuterol Sulfate) 2.5 Mg/3 Ml Vial.neb 1 Vial NEB PRN Q4HRS Aspirin 325 Mg Tablet 325 Mg PO DAILY Levothyroxine Sodium 112 Mcg Tablet 112 Mcg PO DAILYAC Lisinopril-Hctz 20-25 Mg Tab (Lisinopril/Hydrochlorothiazide) 1 Each Tablet 2 Tab PO DAILY Feosol (Iron,Carbonyl) 45 Mg Tablet 325 Mg PO DAILY Glimepiride 4 Mg Tablet 1 Tab PO BID Atorvastatin Calcium 20 Mg Tablet 40 Mg PO HS Prozac (Fluoxetine Hcl) 10 Mg Capsule 80 Mg PO DAILYWBKFT Metformin Hcl 1,000 Mg Tablet 1 Tab PO BID Allergies Allergies: Coded Allergies: simvastatin (Verified Adverse Reaction, Intermediate, MUSCLE CRAMPING, ) Vitals VITALS Vital Signs Date Time Temp Pulse Resp B/P Pulse Ox O2 Delivery O2 Flow Rate FiO2 12/06/16 11:54 100 Nasal Cannula 2.0 12/06/16 10:34 98.3 88 20 106/53 98.3 Labs Labs Laboratory Tests Test 12/04/16 15:14 12/05/16 05:00 12/05/16 08:08 12/05/16 11:56 White Blood Count 4.1x10^3/uL (4.0-11.0) 7.5x10^3/uL (4.0-11.0) Red Blood Count 3.24x10^6/uL (3.50-5.40) 2.76x10^6/uL (3.50-5.40) Hemoglobin 9.6g/dL (12.0-15.5) 8.4g/dL (12.0-15.5) Hematocrit 28.7% (36.0-47.0) 24.5% (36.0-47.0) Mean Corpuscular Volume 89fL (79-100) 89fL (79-100) Mean Corpuscular Hemoglobin 30pg (25-35) 30pg (25-35) Mean Corpuscular Hemoglobin Concent 33g/dL (31-37) 34g/dL (31-37) Red Cell Distribution Width 16.6% (11.5-14.5) 16.5% (11.5-14.5) Platelet Count 149x10^3/uL (140-400) 180x10^3/uL (140-400) Neutrophils (%) (Auto) 82% (31-73) 86% (31-73) Lymphocytes (%) (Auto) 8% (24-48) 6% (24-48) Monocytes (%) (Auto) 9% (0-9) 7% (0-9) Eosinophils (%) (Auto) 1% (0-3) 0% (0-3) Basophils (%) (Auto) 1% (0-3) 1% (0-3) Neutrophils # (Auto) 3.4x10^3uL (1.8-7.7) 6.5x10^3uL (1.8-7.7) Lymphocytes # (Auto) 0.3x10^3/uL (1.0-4.8) 0.4x10^3/uL (1.0-4.8) Monocytes # (Auto) 0.4x10^3/uL (0.0-1.1) 0.5x10^3/uL (0.0-1.1) Eosinophils # (Auto) 0.0x10^3/uL (0.0-0.7) 0.0x10^3/uL (0.0-0.7) Basophils # (Auto) 0.0x10^3/uL (0.0-0.2) 0.1x10^3/uL (0.0-0.2) Segmented Neutrophils % 51% (35-66) Band Neutrophils % 32% (0-9) Lymphocytes % 9% (24-48) Monocytes % 6% (0-10) Eosinophils % 1% (0-5) Myelocytes % 1% (0-0) Toxic Granulation Marked Toxic Vacuolation Slight Dohle Bodies Few Platelet Estimate Adequate (ADEQUATE) Polychromasia Slight Sodium Level 137mmol/L (136-145) 134mmol/L (136-145) Potassium Level 3.6mmol/L (3.5-5.1) 3.6mmol/L (3.5-5.1) Chloride Level 100mmol/L (98-107) 98mmol/L (98-107) Carbon Dioxide Level 23mmol/L (21-32) 25mmol/L (21-32) Anion Gap 14 (6-14) 11 (6-14) Blood Urea Nitrogen 12mg/dL (7-20) 12mg/dL (7-20) Creatinine 1.2mg/dL (0.6-1.0) 1.0mg/dL (0.6-1.0) Estimated GFR (Cockcroft-Gault) 45.2 55.8 Glucose Level 161mg/dL (70-99) 178mg/dL (70-99) Calcium Level 8.1mg/dL (8.5-10.1) 8.1mg/dL (8.5-10.1) Total Bilirubin 0.3mg/dL (0.2-1.0) Direct Bilirubin 0.1mg/dL (0.0-0.2) Aspartate Amino Transf (AST/SGOT) 12U/L (15-37) Alanine Aminotransferase (ALT/SGPT) 22U/L (14-59) Alkaline Phosphatase 29U/L (46-116) Troponin I Quantitative < 0.017ng/mL (0.000-0.055) US-Fpg-Z-Type Natriuretic Peptide 77pg/mL (0-124) Total Protein 6.3g/dL (6.4-8.2) Albumin 3.2g/dL (3.4-5.0) Lipase 63U/L (73-393) Glucose (Fingerstick) 214mg/dL (70-99) 189mg/dL (70-99) Test 12/05/16 16:46 12/05/16 21:47 12/06/16 06:00 12/06/16 07:57 Glucose (Fingerstick) 166mg/dL (70-99) 202mg/dL (70-99) 157mg/dL (70-99) White Blood Count 9.0x10^3/uL (4.0-11.0) Red Blood Count 2.48x10^6/uL (3.50-5.40) Hemoglobin 7.5g/dL (12.0-15.5) Hematocrit 21.4% (36.0-47.0) Mean Corpuscular Volume 86fL (79-100) Mean Corpuscular Hemoglobin 30pg (25-35) Mean Corpuscular Hemoglobin Concent 35g/dL (31-37) Red Cell Distribution Width 17.2% (11.5-14.5) Platelet Count 182x10^3/uL (140-400) Neutrophils (%) (Auto) 91% (31-73) Lymphocytes (%) (Auto) 3% (24-48) Monocytes (%) (Auto) 5% (0-9) Eosinophils (%) (Auto) 0% (0-3) Basophils (%) (Auto) 0% (0-3) Neutrophils # (Auto) 8.2x10^3uL (1.8-7.7) Lymphocytes # (Auto) 0.3x10^3/uL (1.0-4.8) Monocytes # (Auto) 0.4x10^3/uL (0.0-1.1) Eosinophils # (Auto) 0.0x10^3/uL (0.0-0.7) Basophils # (Auto) 0.0x10^3/uL (0.0-0.2) Sodium Level 132mmol/L (136-145) Potassium Level 3.5mmol/L (3.5-5.1) Chloride Level 100mmol/L (98-107) Carbon Dioxide Level 24mmol/L (21-32) Anion Gap 8 (6-14) Blood Urea Nitrogen 10mg/dL (7-20) Creatinine 0.9mg/dL (0.6-1.0) Estimated GFR (Cockcroft-Gault) 63.0 Glucose Level 192mg/dL (70-99) Calcium Level 7.6mg/dL (8.5-10.1) Test 12/06/16 11:35 Glucose (Fingerstick) 160mg/dL (70-99) Laboratory Tests Test 12/05/16 16:46 12/05/16 21:47 12/06/16 06:00 12/06/16 07:57 Glucose (Fingerstick) 166mg/dL (70-99) 202mg/dL (70-99) 157mg/dL (70-99) White Blood Count 9.0x10^3/uL (4.0-11.0) Red Blood Count 2.48x10^6/uL (3.50-5.40) Hemoglobin 7.5g/dL (12.0-15.5) Hematocrit 21.4% (36.0-47.0) Mean Corpuscular Volume 86fL (79-100) Mean Corpuscular Hemoglobin 30pg (25-35) Mean Corpuscular Hemoglobin Concent 35g/dL (31-37) Red Cell Distribution Width 17.2% (11.5-14.5) Platelet Count 182x10^3/uL (140-400) Neutrophils (%) (Auto) 91% (31-73) Lymphocytes (%) (Auto) 3% (24-48) Monocytes (%) (Auto) 5% (0-9) Eosinophils (%) (Auto) 0% (0-3) Basophils (%) (Auto) 0% (0-3) Neutrophils # (Auto) 8.2x10^3uL (1.8-7.7) Lymphocytes # (Auto) 0.3x10^3/uL (1.0-4.8) Monocytes # (Auto) 0.4x10^3/uL (0.0-1.1) Eosinophils # (Auto) 0.0x10^3/uL (0.0-0.7) Basophils # (Auto) 0.0x10^3/uL (0.0-0.2) Sodium Level 132mmol/L (136-145) Potassium Level 3.5mmol/L (3.5-5.1) Chloride Level 100mmol/L (98-107) Carbon Dioxide Level 24mmol/L (21-32) Anion Gap 8 (6-14) Blood Urea Nitrogen 10mg/dL (7-20) Creatinine 0.9mg/dL (0.6-1.0) Estimated GFR (Cockcroft-Gault) 63.0 Glucose Level 192mg/dL (70-99) Calcium Level 7.6mg/dL (8.5-10.1) Test 12/06/16 11:35 Glucose (Fingerstick) 160mg/dL (70-99) Assessment/Plan Assessment/Plan DATE OF CONSULTATION: 12/06/2016 CONSULT REQUESTING PHYSICIAN: Alejandra Elizabeth MD SURGEON: Dr Dowell REASON FOR CONSULTATION: Invasive ductal carcinoma of the left breast diagnosed on 09/07/2016 status post left modified radical mastectomy on 09/20/2016. On adjuvant chemo. HISTORY OF PRESENT ILLNESS: The patient is a 65-year-old female who has never had a mammogram previously because of lack of insurance and she noticed redness in the left breast nipple area along with nipple inversion in 12/2015. She did not have medical insurance and hence she did not seek any further investigation and workup for this. She mentions that she was waiting to be eligible for Medicare on 12/01/2016 and she was planning to get this worked up at that time. She saw her primary care physician, Dr. Chantelle Ch in 08/2016. Dr. Ch also felt that she had a mass and she thought that it is best to proceed with further management of this suspected malignancy rather than waiting until 2016. She underwent an incisional biopsy of the left breast on 09/07/2016 and this revealed invasive ductal carcinoma, grade 2 with tumor invasion of the skin. She then underwent left modified radical mastectomy by Dr. Ramos Peres on 09/20/2016. Dr. Peres also noted evidence of axillary lymph node metastasis. Started adjuvant chemo with AC on 10/28/16. Tolerated well except for nausea, bone pains. She presented to the Emergency Room with severe shortness of breath. She relates that she had upper respiratory symptoms for 3 days, but shortness of breath became really bad.. She also now has a sharp chest pain in the middle of her chest, worse with deep breathing and cough. She does have a frequent cough, which is dry and exacerbated by deep breathing. Pain is 8/10. Denies any fevers or chills. No sick family members, but she continues to work 7 days a week. PAST MEDICAL HISTORY: Fibromyalgia, bronchial asthma, hyperlipidemia, depression, anxiety, muscle spasms, diabetes, peripheral neuropathy due to diabetes, anemia, hypothyroidism, and hypertension. FAMILY HISTORY: Positive for diabetes. Paternal aunt had breast cancer. SOCIAL HISTORY: She quit smoking in 2004, no alcohol abuse. 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 REVIEW OF SYSTEMS: A 14-point review of systems was performed. Pertinent positives are mentioned in the history of present illness. Rest of the system review is negative. PHYSICAL EXAMINATION: GENERAL APPEARANCE: The patient is a 65-year-old female who is in no acute cardiorespiratory distress. VITAL SIGNS: reviewed. HEENT: Atraumatic, normocephalic. Eyes: No icterus. NECK: Supple. CHEST: Bilaterally symmetrical. HEART: S1, S2 normal. ABDOMEN: Soft, nontender. No hepatosplenomegaly. CENTRAL NERVOUS SYSTEM: No focal deficits. LYMPHATICS: No lymphadenopathy. SKIN: No rashes. PSYCHOLOGIC: Mood and affect are appropriate. MUSCULOSKELETAL: No joint effusions. BREASTS: Exam reveals no masses in the right breast. Left breast is surgically absent. Postop dressing in place, postop drains in place. LABORATORY DATA: Reviewed. IMPRESSION AND PLAN: 1. Invasive ductal carcinoma of the left breast, grade 2 diagnosed on 09/07/2016 by an incisional biopsy, status post left modified radical mastectomy by Dr. Peres on 09/20/2016. Dr. Peres also noted metastasis to the axillary lymph node. ER positive 97.1%, HI positive 87.3%, Her 2 jacquie neg, Grade II. I recommended adjuvant chemotherapy with Adriamycin and Cytoxan followed by Taxol. then she would benefit from adjuvant Arimidex. Started chemo with AC on 10/28/16. s/p C3 on 11/26/16. 2. Anemia, worse at 7.5 due to chemo, monitor. 3. Fibromyalgia, management per primary physician. 4. s/p portacath by Dr Peres. 5. Echo 10/15/16 reveals EF of 60%. 6. Peripheral neuropathy due to DM. 7. n/v due to chemo - cont compazine. 8. Viral URI: clinically improved. treat symptomatically with albuterol, oxygen, Tylenol #[address] Dowell. On levaquin too. RENU WHYTE MD Dec 06, 2016 13:55
--- NOTE | 2016-12-06 14:29 | PDOC ---
Provider Note Provider Note dictated YAJAIRA HARVEY MD Dec 06, 2016 14:29
[2016-12-06 14:42] VITALS: BP 91/59
--- NOTE | 2016-12-06 15:16 | RAD ---
Indication difficulty breathing. A noncontrast CT examination of the chest was performed. No prior CT imaging of the chest is available. Note is made of a plain film examination 12/04/2016. An acute or definite significant finding in the upper abdomen is not seen. There is a low-density 13 mm mass in the right lobe of the liver most compatible with a small incidental cyst. Clips are noted in the gallbladder fossa. There is a oval low-density mass measuring approximately 9.5 x 4.5 cm in the left chest wall. This may represent a small amount or hematoma. Other etiologies are not excluded. Clinical correlation advised The mediastinum and hilar areas appear unremarkable. There is a moderately extensive patchy infiltrate in the left lower lobe most compatible with pneumonia. The left upper lobe and lingula appear unremarkable. There are minimal areas of volume loss in the right lower lobe compatible with atelectasis scar or nonspecific inflammatory process. There is a reasonably well-defined 7 mm nodule in the right lower lobe, image 35 series 2. Follow-up imaging along the lines of the Fleischner criteria should be considered. IMPRESSION: Moderately extensive infiltrate in the left lower lobe most compatible with pneumonia Minimal areas of volume loss in the right lower lobe, nonspecific. 7 mm pulmonary nodule in the right lower lobe. Follow-up imaging along the lines of the Fleischner criteria should be considered. Nodules detected incidentally at non-screening CT Nodule size (mm) less than or equal to 4 Low Risk patients- no follow-up needed High Risk patients- follow-up at 12 months and if no change, no further imaging needed. Nodule size > 4-6 mm Low risk patients- follow- up at 12 months and if no change, no further imaging needed High risk patients- initial follow-up CT at 6-12 months and then at 18-24 months if no change. Nodule Size > 6-8 mm Low risk patients- initial follow-up CT at 6-12 months and then at 18-24 months if no change. High risk patients- initial follow- up CT at 3-6 months and then at 9-12 months if no change, Nodule Size >8 mm Either low or high risk patients: Follow-up CT at around 3, 9 and [address], PET, and/or biopsy Note: newly detected indeterminate nodule in person 35 years of age or older. Low risk patients- minimal or absent history of smoking and/or other known risk factors. High risk patients- history of smoking or of other known risk factors. PQRS Compliance Statement: One or more of the following individualized dose reduction techniques were utilized for this examination: 1. Automated exposure control 2. Adjustment of the mA and/or kV according to patient size 3. Use of iterative reconstruction technique
--- NOTE | 2016-12-06 15:29 | CONS ---
DATE OF CONSULTATION: 12/06/2016 ATTENDING PHYSICIAN: Dr. Elizabeth. REASON FOR CONSULTATION: Cough, dyspnea. HISTORY OF PRESENT ILLNESS: The patient is a 65-year-old female who was noted to have nipple inversion in 12/2015 and at that time, workup was performed and she was diagnosed with breast cancer involving the left side. It was invasive ductal carcinoma, grade 2 with tumor invasion of the skin. She underwent left modified radical mastectomy by Dr. Peres in 08/2016 and had axillary lymph node metastasis for which she is on adjuvant chemo with AC since October 28. The patient has also smoked cigarettes for at least 30 years, but she did quit 20 years ago. The patient presented to the hospital Emergency Room with complaint of a cough which has been nonproductive. She felt like this is rattling in her chest. No fever. No purulent sputum production. She had some chest pains with coughing as well as. The patient's chest x-ray was reviewed and did not show any definite infiltrates. She is currently on room air. Her white cell count was 9.0, but she was anemic with hemoglobin of 7.5. Consultation requested for further evaluation and management. She did not have influenza swab yet. PAST MEDICAL HISTORY: 1. Significant for history of hypertension. 2. History of suspected underlying COPD, unknown FEV1. 3. History of breast cancer status post modified left mastectomy followed by chemo. 4. History of fibromyalgia. 5. History of hyperlipidemia. 6. Depression. 7. Anxiety. 8. Muscle spasm. 9. Diabetes. 10. Peripheral neuropathy. 11. Hypothyroidism. PAST SURGICAL HISTORY: Modified left mastectomy. REVIEW OF SYSTEMS: Twelve-point systems obtained. Pertinent positives discussed in history of present illness, otherwise noncontributory. All systems that were negative were reviewed as well. SOCIAL HISTORY: Smoked for about 30 years before quitting more than 10 years ago. FAMILY HISTORY: Noncontributory to lungs. Aunt had breast cancer. MEDICATIONS: Reviewed. PHYSICAL EXAMINATION: VITAL SIGNS: Stable, pulse ox 100% on 2 liters, afebrile. HEENT: Sclerae nonicteric. NECK: Supple. LUNGS: A few rhonchi posteriorly. No wheezing. CARDIOVASCULAR: Regular rate. ABDOMEN: Soft. EXTREMITIES: With no pitting edema. LABORATORY DATA: Reviewed. Sodium 132, BUN 10, creatinine 0.9. White cell count 9.0, hemoglobin 7.5. IMPRESSION: 1. Dyspnea associated with cough and most likely viral pneumonitis. Chest x-ray is clear with no definite consolidation. will obtain ct chest 2. Suspected underlying chronic obstructive pulmonary disease with mild exacerbation. 3. History of breast cancer status post modified radical mastectomy on the left followed by chemo. She had axillary lymph node involvement. 4. Mild hyponatremia. 5. Anemia, probably secondary to chemo. RECOMMENDATIONS: 1. Obtain influenza screen. 2. Noncontrast CT chest to better assess for parenchymal disease. 3. Continue with present bronchodilators. 4. Follow Oncology recommendations. 5. If CT shows any focal consolidation, then we will consider empiric antibiotics. 6. Lovenox for DVT prophylaxis. YAJAIRA HARVEY MD DR: JEREMY/nts JOB#: [id number] / [id number]
[2016-12-06] MEDS: VANCOMYCIN PER PHARMACY MC PRN (16:23)
[2016-12-06] MEDS ORDERED: VANCOMYCIN 2 GM in IV NORMAL SALINE 500ML BAG 500 ML IV SCH (17:00)
[2016-12-06 19:00] VITALS: BP 92/45
[2016-12-06] MEDS: BUDESONIDE 0.5 MG/2 ML NEBU NEB SCH (19:53)
[2016-12-06] MEDS: PIPERACILLIN/TAZOBACTAM 4.5 GM in IV NORMAL SALINE 100ML 100 ML IV SCH (22:52)
[2016-12-06] MEDS: FERROUS SULFATE 325 MG TABLET PO SCH (22:56)
[2016-12-06] MEDS: ATORVASTATIN CALCIUM 40 MG TABLET. PO SCH (22:56)
[2016-12-06 23:14] VITALS: BP 100/60
[2016-12-06 23:43] LABS: OBC FLU VALID
[2016-12-07] VITALS (13 sets, daily range): BP systolic 77–126; BP diastolic 32–57
[2016-12-07] MEDS: VANCOMYCIN 1.25 GM in IV NORMAL SALINE 250ML 250 ML IV SCH ×2 (05:27→16:54)
[2016-12-07 06:06] LABS: CALCIUM 7.5 mg/dL (8.5-10.1); CREATININE 1.1 mg/dL (0.6-1.0); POTASSIUM 3.3 mmol/L (3.5-5.1)
[2016-12-07 06:37] LABS: BASO % 0 % (0-3); EOS % 0 % (0-3); LYMPH # 0.3 x10^3/uL (1.0-4.8); LYMPH % 4 % (24-48); MEAN CORPUSCULAR HEMOGLOBIN 30 pg (25-35); MEAN CORPUSCULAR HGB CONC 34 g/dL (31-37); MEAN CORPUSCULAR VOLUME 86 fL (79-100); MONO % 6 % (0-9); NEUT % 90 % (31-73); PLATELET COUNT 185 x10^3/uL (140-400); RED BLOOD COUNT 2.16 x10^6/uL (3.50-5.40); RED CELL DISTRIBUTION WIDTH 17.8 % (11.5-14.5); WHITE BLOOD COUNT 7.2 x10^3/uL (4.0-11.0)
[2016-12-07 06:38] LABS: HEMOGLOBIN 6.4 g/dL (12.0-15.5)
[2016-12-07 06:39] LABS: HEMATOCRIT 18.6 % (36.0-47.0)
[2016-12-07] MEDS: BUDESONIDE 0.5 MG/2 ML NEBU NEB SCH (07:56)
[2016-12-07] MEDS: ALBUTEROL SULFATE 2.5 MG/3 ML NEBU. NEB SCH ×3 (07:56→15:42)
[2016-12-07] MEDS: INSULIN ASPART 300 UNITS/3 ML INSULN.PEN SQ SCH ×3 (08:00→16:37)
[2016-12-07] MEDS: HYDROCHLOROTHIAZIDE 25 MG TABLET PO SCH (09:00)
[2016-12-07] MEDS: LISINOPRIL 40 MG TABLET. PO SCH (09:00)
[2016-12-07] MEDS: ENOXAPARIN 40 MG/0.4 ML DISP.SYRIN. SQ SCH (09:00)
--- NOTE | 2016-12-07 09:24 | PDOC ---
PULMONARY PROGRESS NOTES Subjective still has cough Vitals Vital Signs Date Time Temp Pulse Resp B/P Pulse Ox O2 Delivery O2 Flow Rate FiO2 12/07/16 07:57 97 Nasal Cannula 2.0 12/07/16 07:24 97.8 75 20 106/48 97.8 General: Alert, No acute distress Lungs: Other (few rhonchi) Cardiovascular: S1 Abdomen: Soft Neuro Exam: Alert Extremities: No Edema Skin: Warm Labs Laboratory Tests Test 12/05/16 11:56 12/05/16 16:46 12/05/16 21:47 12/06/16 06:00 Glucose (Fingerstick) 189mg/dL (70-99) 166mg/dL (70-99) 202mg/dL (70-99) White Blood Count 9.0x10^3/uL (4.0-11.0) Red Blood Count 2.48x10^6/uL (3.50-5.40) Hemoglobin 7.5g/dL (12.0-15.5) Hematocrit 21.4% (36.0-47.0) Mean Corpuscular Volume 86fL (79-100) Mean Corpuscular Hemoglobin 30pg (25-35) Mean Corpuscular Hemoglobin Concent 35g/dL (31-37) Red Cell Distribution Width 17.2% (11.5-14.5) Platelet Count 182x10^3/uL (140-400) Neutrophils (%) (Auto) 91% (31-73) Lymphocytes (%) (Auto) 3% (24-48) Monocytes (%) (Auto) 5% (0-9) Eosinophils (%) (Auto) 0% (0-3) Basophils (%) (Auto) 0% (0-3) Neutrophils # (Auto) 8.2x10^3uL (1.8-7.7) Lymphocytes # (Auto) 0.3x10^3/uL (1.0-4.8) Monocytes # (Auto) 0.4x10^3/uL (0.0-1.1) Eosinophils # (Auto) 0.0x10^3/uL (0.0-0.7) Basophils # (Auto) 0.0x10^3/uL (0.0-0.2) Sodium Level 132mmol/L (136-145) Potassium Level 3.5mmol/L (3.5-5.1) Chloride Level 100mmol/L (98-107) Carbon Dioxide Level 24mmol/L (21-32) Anion Gap 8 (6-14) Blood Urea Nitrogen 10mg/dL (7-20) Creatinine 0.9mg/dL (0.6-1.0) Estimated GFR (Cockcroft-Gault) 63.0 Glucose Level 192mg/dL (70-99) Calcium Level 7.6mg/dL (8.5-10.1) Test 12/06/16 07:57 12/06/16 11:35 12/06/16 14:00 12/06/16 16:35 Glucose (Fingerstick) 157mg/dL (70-99) 160mg/dL (70-99) 195mg/dL (70-99) Clostridium difficile Toxin (PCR) Negative (Negative) Test 12/06/16 20:34 12/06/16 23:00 12/07/16 05:30 12/07/16 06:26 Glucose (Fingerstick) 154mg/dL (70-99) Influenza Type A Antigen Negative (NEGATIVE) Influenza Type B Antigen Negative (NEGATIVE) Sodium Level 132mmol/L (136-145) Potassium Level 3.3mmol/L (3.5-5.1) Chloride Level 101mmol/L (98-107) Carbon Dioxide Level 22mmol/L (21-32) Anion Gap 9 (6-14) Blood Urea Nitrogen 11mg/dL (7-20) Creatinine 1.1mg/dL (0.6-1.0) Estimated GFR (Cockcroft-Gault) 50.0 Glucose Level 144mg/dL (70-99) Calcium Level 7.5mg/dL (8.5-10.1) White Blood Count 7.2x10^3/uL (4.0-11.0) Red Blood Count 2.16x10^6/uL (3.50-5.40) Hemoglobin 6.4g/dL (12.0-15.5) Hematocrit 18.6% (36.0-47.0) Mean Corpuscular Volume 86fL (79-100) Mean Corpuscular Hemoglobin 30pg (25-35) Mean Corpuscular Hemoglobin Concent 34g/dL (31-37) Red Cell Distribution Width 17.8% (11.5-14.5) Platelet Count 185x10^3/uL (140-400) Neutrophils (%) (Auto) 90% (31-73) Lymphocytes (%) (Auto) 4% (24-48) Monocytes (%) (Auto) 6% (0-9) Eosinophils (%) (Auto) 0% (0-3) Basophils (%) (Auto) 0% (0-3) Neutrophils # (Auto) 6.4x10^3uL (1.8-7.7) Lymphocytes # (Auto) 0.3x10^3/uL (1.0-4.8) Monocytes # (Auto) 0.4x10^3/uL (0.0-1.1) Eosinophils # (Auto) 0.0x10^3/uL (0.0-0.7) Basophils # (Auto) 0.0x10^3/uL (0.0-0.2) Test 12/07/16 07:56 Glucose (Fingerstick) 127mg/dL (70-99) Laboratory Tests Test 12/06/16 11:35 12/06/16 14:00 12/06/16 16:35 12/06/16 20:34 Glucose (Fingerstick) 160mg/dL (70-99) 195mg/dL (70-99) 154mg/dL (70-99) Clostridium difficile Toxin (PCR) Negative (Negative) Test 12/06/16 23:00 12/07/16 05:30 12/07/16 06:26 12/07/16 07:56 Influenza Type A Antigen Negative (NEGATIVE) Influenza Type B Antigen Negative (NEGATIVE) Sodium Level 132mmol/L (136-145) Potassium Level 3.3mmol/L (3.5-5.1) Chloride Level 101mmol/L (98-107) Carbon Dioxide Level 22mmol/L (21-32) Anion Gap 9 (6-14) Blood Urea Nitrogen 11mg/dL (7-20) Creatinine 1.1mg/dL (0.6-1.0) Estimated GFR (Cockcroft-Gault) 50.0 Glucose Level 144mg/dL (70-99) Calcium Level 7.5mg/dL (8.5-10.1) White Blood Count 7.2x10^3/uL (4.0-11.0) Red Blood Count 2.16x10^6/uL (3.50-5.40) Hemoglobin 6.4g/dL (12.0-15.5) Hematocrit 18.6% (36.0-47.0) Mean Corpuscular Volume 86fL (79-100) Mean Corpuscular Hemoglobin 30pg (25-35) Mean Corpuscular Hemoglobin Concent 34g/dL (31-37) Red Cell Distribution Width 17.8% (11.5-14.5) Platelet Count 185x10^3/uL (140-400) Neutrophils (%) (Auto) 90% (31-73) Lymphocytes (%) (Auto) 4% (24-48) Monocytes (%) (Auto) 6% (0-9) Eosinophils (%) (Auto) 0% (0-3) Basophils (%) (Auto) 0% (0-3) Neutrophils # (Auto) 6.4x10^3uL (1.8-7.7) Lymphocytes # (Auto) 0.3x10^3/uL (1.0-4.8) Monocytes # (Auto) 0.4x10^3/uL (0.0-1.1) Eosinophils # (Auto) 0.0x10^3/uL (0.0-0.7) Basophils # (Auto) 0.0x10^3/uL (0.0-0.2) Glucose (Fingerstick) 127mg/dL (70-99) Medications Active Scripts Medications Dose Route/Sig Days Date Category Percocet 5-325 Mg Tablet (Oxycodone/Acetaminophen) 1 Each Tablet 1 Tab PO Q4HRS PRN 09/07/16 Reported Ventolin Hfa Inhaler (Albuterol Sulfate) 18 Gm Hfa.aer.ad 2 Puff INH Q4HRS 09/06/16 Reported Albuterol Sulfate Neb Soln (Albuterol Sulfate) 2.5 Mg/3 Ml Vial.neb 1 Vial NEB PRN Q4HRS 09/06/16 Reported Aspirin 325 Mg Tablet 325 Mg PO DAILY 09/06/16 Reported Levothyroxine Sodium 112 Mcg Tablet 112 Mcg PO DAILYAC 09/06/16 Reported Lisinopril-Hctz 20-25 Mg Tab (Lisinopril/Hydrochlorothiazide) 1 Each Tablet 2 Tab PO DAILY 12/13/14 Reported Feosol (Iron,Carbonyl) 45 Mg Tablet 325 Mg PO DAILY 12/13/14 Reported Glimepiride 4 Mg Tablet 1 Tab PO BID 12/13/14 Reported Atorvastatin Calcium 20 Mg Tablet 40 Mg PO HS 12/13/14 Reported Prozac (Fluoxetine Hcl) 10 Mg Capsule 80 Mg PO DAILYWBKFT 11/14/14 Reported Metformin Hcl 1,000 Mg Tablet 1 Tab PO BID 11/14/14 Reported Impression . 1. Dyspnea associated with cough due to pneumonia. Chest ct with LLL consolidation. 2. Suspected underlying chronic obstructive pulmonary disease with mild exacerbation. 3. History of breast cancer status post modified radical mastectomy on the left followed by chemo. She had axillary lymph node involvement. 4. Mild hyponatremia. 5. Anemia, probably secondary to chemo. Plan . 1. influenza screen. 2. Noncontrast CT chest with LLL consolidation 3. Continue with present bronchodilators. 4. Follow Oncology recommendations. 5. BS empiric antibiotics. 6. d/c Lovenox for DVT prophylaxis.(anemia) 7. transfusion per PCP YAJAIRA HARVEY MD Dec 07, 2016 09:23
[2016-12-07] MEDS: PIPERACILLIN/TAZOBACTAM 4.5 GM in IV NORMAL SALINE 100ML 100 ML IV SCH ×5 (10:59→18:11)
[2016-12-07] MEDS: LEVOTHYROXINE 112 MCG TABLET PO SCH (11:00)
[2016-12-07] MEDS: GLIMEPIRIDE 2 MG TABLET PO SCH ×2 (11:00→18:15)
[2016-12-07] MEDS: METFORMIN 1,000 MG TABLET PO SCH ×2 (11:01→16:54)
[2016-12-07] MEDS: ASPIRIN 325 MG TABLET PO SCH (11:01)
[2016-12-07] MEDS: PANTOPRAZOLE 40 MG TABLET. PO SCH (11:02)
[2016-12-07] MEDS: OXYMETAZOLINE 0.05% NASAL SPRAY 30ML BOTTLE. NS SCH ×2 (11:03→18:12)
[2016-12-07] MEDS: FLUOXETINE HCL 20 MG CAPSULE PO SCH (11:09)
[2016-12-07] MEDS: ACETAMINOPHEN/CODEINE 300/30MG TABLET PO PRN (11:18)
--- NOTE | 2016-12-07 11:26 | PDOC ---
PROGRESS NOTES Chief Complaint Chief Complaint 1. Viral URI 2. Neutropenia 3. Anemia 4. DM 5. HTN 6. HLD 7. Depression 8. Prophylaxis 9. Breast CA History of Present Illness History of Present Illness Pt in bed. HgB down to 6.4 VSS but BP is low Ordered @ units PRBCs Vitals Vitals Vital Signs Date Time Temp Pulse Resp B/P Pulse Ox O2 Delivery O2 Flow Rate FiO2 12/07/16 11:18 18 Nasal Cannula 2.0 12/07/16 10:50 98.0 78 77/35 97 98.0 Physical Exam General: Alert, Oriented X3, Cooperative Heart: Regular rate, No murmurs Lungs: Other (few rhonchi) Abdomen: Normal bowel sounds, Soft, No tenderness Extremities: No cyanosis, No edema Skin: No rashes, No breakdown Labs LABS Laboratory Tests Test 12/06/16 11:35 12/06/16 14:00 12/06/16 16:35 12/06/16 20:34 Glucose (Fingerstick) 160mg/dL (70-99) 195mg/dL (70-99) 154mg/dL (70-99) Clostridium difficile Toxin (PCR) Negative (Negative) Test 12/06/16 23:00 12/07/16 05:30 12/07/16 06:26 12/07/16 07:56 Influenza Type A Antigen Negative (NEGATIVE) Influenza Type B Antigen Negative (NEGATIVE) Sodium Level 132mmol/L (136-145) Potassium Level 3.3mmol/L (3.5-5.1) Chloride Level 101mmol/L (98-107) Carbon Dioxide Level 22mmol/L (21-32) Anion Gap 9 (6-14) Blood Urea Nitrogen 11mg/dL (7-20) Creatinine 1.1mg/dL (0.6-1.0) Estimated GFR (Cockcroft-Gault) 50.0 Glucose Level 144mg/dL (70-99) Calcium Level 7.5mg/dL (8.5-10.1) White Blood Count 7.2x10^3/uL (4.0-11.0) Red Blood Count 2.16x10^6/uL (3.50-5.40) Hemoglobin 6.4g/dL (12.0-15.5) Hematocrit 18.6% (36.0-47.0) Mean Corpuscular Volume 86fL (79-100) Mean Corpuscular Hemoglobin 30pg (25-35) Mean Corpuscular Hemoglobin Concent 34g/dL (31-37) Red Cell Distribution Width 17.8% (11.5-14.5) Platelet Count 185x10^3/uL (140-400) Neutrophils (%) (Auto) 90% (31-73) Lymphocytes (%) (Auto) 4% (24-48) Monocytes (%) (Auto) 6% (0-9) Eosinophils (%) (Auto) 0% (0-3) Basophils (%) (Auto) 0% (0-3) Neutrophils # (Auto) 6.4x10^3uL (1.8-7.7) Lymphocytes # (Auto) 0.3x10^3/uL (1.0-4.8) Monocytes # (Auto) 0.4x10^3/uL (0.0-1.1) Eosinophils # (Auto) 0.0x10^3/uL (0.0-0.7) Basophils # (Auto) 0.0x10^3/uL (0.0-0.2) Glucose (Fingerstick) 127mg/dL (70-99) Review of Systems Review of Systems co weakness co soa Assessment and Plan Assessmemt and Plan Problems Medical Problems: (1) History of breast cancer Status: Acute (2) Shortness of breath Status: Acute (3) Tachypnea Status: Acute 1. Viral URI 2. Neutropenia 3. Anemia 4. DM 5. HTN 6. HLD 7. Depression 8. Prophylaxis 9. Breast CA Plan Transfuse Recheck labs Home meds [employer] PTOT Problems: Comment Review of Relevant I have reviewed the following items moise (where applicable) has been applied. Labs Laboratory Tests Test 12/05/16 11:56 12/05/16 16:46 12/05/16 21:47 12/06/16 06:00 Glucose (Fingerstick) 189mg/dL (70-99) 166mg/dL (70-99) 202mg/dL (70-99) White Blood Count 9.0x10^3/uL (4.0-11.0) Red Blood Count 2.48x10^6/uL (3.50-5.40) Hemoglobin 7.5g/dL (12.0-15.5) Hematocrit 21.4% (36.0-47.0) Mean Corpuscular Volume 86fL (79-100) Mean Corpuscular Hemoglobin 30pg (25-35) Mean Corpuscular Hemoglobin Concent 35g/dL (31-37) Red Cell Distribution Width 17.2% (11.5-14.5) Platelet Count 182x10^3/uL (140-400) Neutrophils (%) (Auto) 91% (31-73) Lymphocytes (%) (Auto) 3% (24-48) Monocytes (%) (Auto) 5% (0-9) Eosinophils (%) (Auto) 0% (0-3) Basophils (%) (Auto) 0% (0-3) Neutrophils # (Auto) 8.2x10^3uL (1.8-7.7) Lymphocytes # (Auto) 0.3x10^3/uL (1.0-4.8) Monocytes # (Auto) 0.4x10^3/uL (0.0-1.1) Eosinophils # (Auto) 0.0x10^3/uL (0.0-0.7) Basophils # (Auto) 0.0x10^3/uL (0.0-0.2) Sodium Level 132mmol/L (136-145) Potassium Level 3.5mmol/L (3.5-5.1) Chloride Level 100mmol/L (98-107) Carbon Dioxide Level 24mmol/L (21-32) Anion Gap 8 (6-14) Blood Urea Nitrogen 10mg/dL (7-20) Creatinine 0.9mg/dL (0.6-1.0) Estimated GFR (Cockcroft-Gault) 63.0 Glucose Level 192mg/dL (70-99) Calcium Level 7.6mg/dL (8.5-10.1) Test 12/06/16 07:57 12/06/16 11:35 12/06/16 14:00 12/06/16 16:35 Glucose (Fingerstick) 157mg/dL (70-99) 160mg/dL (70-99) 195mg/dL (70-99) Clostridium difficile Toxin (PCR) Negative (Negative) Test 12/06/16 20:34 12/06/16 23:00 12/07/16 05:30 12/07/16 06:26 Glucose (Fingerstick) 154mg/dL (70-99) Influenza Type A Antigen Negative (NEGATIVE) Influenza Type B Antigen Negative (NEGATIVE) Sodium Level 132mmol/L (136-145) Potassium Level 3.3mmol/L (3.5-5.1) Chloride Level 101mmol/L (98-107) Carbon Dioxide Level 22mmol/L (21-32) Anion Gap 9 (6-14) Blood Urea Nitrogen 11mg/dL (7-20) Creatinine 1.1mg/dL (0.6-1.0) Estimated GFR (Cockcroft-Gault) 50.0 Glucose Level 144mg/dL (70-99) Calcium Level 7.5mg/dL (8.5-10.1) White Blood Count 7.2x10^3/uL (4.0-11.0) Red Blood Count 2.16x10^6/uL (3.50-5.40) Hemoglobin 6.4g/dL (12.0-15.5) Hematocrit 18.6% (36.0-47.0) Mean Corpuscular Volume 86fL (79-100) Mean Corpuscular Hemoglobin 30pg (25-35) Mean Corpuscular Hemoglobin Concent 34g/dL (31-37) Red Cell Distribution Width 17.8% (11.5-14.5) Platelet Count 185x10^3/uL (140-400) Neutrophils (%) (Auto) 90% (31-73) Lymphocytes (%) (Auto) 4% (24-48) Monocytes (%) (Auto) 6% (0-9) Eosinophils (%) (Auto) 0% (0-3) Basophils (%) (Auto) 0% (0-3) Neutrophils # (Auto) 6.4x10^3uL (1.8-7.7) Lymphocytes # (Auto) 0.3x10^3/uL (1.0-4.8) Monocytes # (Auto) 0.4x10^3/uL (0.0-1.1) Eosinophils # (Auto) 0.0x10^3/uL (0.0-0.7) Basophils # (Auto) 0.0x10^3/uL (0.0-0.2) Test 12/07/16 07:56 Glucose (Fingerstick) 127mg/dL (70-99) Laboratory Tests Test 12/06/16 11:35 12/06/16 14:00 12/06/16 16:35 12/06/16 20:34 Glucose (Fingerstick) 160mg/dL (70-99) 195mg/dL (70-99) 154mg/dL (70-99) Clostridium difficile Toxin (PCR) Negative (Negative) Test 12/06/16 23:00 12/07/16 05:30 12/07/16 06:26 12/07/16 07:56 Influenza Type A Antigen Negative (NEGATIVE) Influenza Type B Antigen Negative (NEGATIVE) Sodium Level 132mmol/L (136-145) Potassium Level 3.3mmol/L (3.5-5.1) Chloride Level 101mmol/L (98-107) Carbon Dioxide Level 22mmol/L (21-32) Anion Gap 9 (6-14) Blood Urea Nitrogen 11mg/dL (7-20) Creatinine 1.1mg/dL (0.6-1.0) Estimated GFR (Cockcroft-Gault) 50.0 Glucose Level 144mg/dL (70-99) Calcium Level 7.5mg/dL (8.5-10.1) White Blood Count 7.2x10^3/uL (4.0-11.0) Red Blood Count 2.16x10^6/uL (3.50-5.40) Hemoglobin 6.4g/dL (12.0-15.5) Hematocrit 18.6% (36.0-47.0) Mean Corpuscular Volume 86fL (79-100) Mean Corpuscular Hemoglobin 30pg (25-35) Mean Corpuscular Hemoglobin Concent 34g/dL (31-37) Red Cell Distribution Width 17.8% (11.5-14.5) Platelet Count 185x10^3/uL (140-400) Neutrophils (%) (Auto) 90% (31-73) Lymphocytes (%) (Auto) 4% (24-48) Monocytes (%) (Auto) 6% (0-9) Eosinophils (%) (Auto) 0% (0-3) Basophils (%) (Auto) 0% (0-3) Neutrophils # (Auto) 6.4x10^3uL (1.8-7.7) Lymphocytes # (Auto) 0.3x10^3/uL (1.0-4.8) Monocytes # (Auto) 0.4x10^3/uL (0.0-1.1) Eosinophils # (Auto) 0.0x10^3/uL (0.0-0.7) Basophils # (Auto) 0.0x10^3/uL (0.0-0.2) Glucose (Fingerstick) 127mg/dL (70-99) Microbiology 12/04/16 Blood Culture - Preliminary, Resulted NO GROWTH AFTER 1 DAY Medications Current Medications Albuterol/ Ipratropium (Duoneb) 3 ml 1X ONCE NEB Last administered on 16:31; Start 12/04/16 at 15:15; Stop 12/04/16 at 15:29; Status DC Ondansetron HCl (Zofran) 4 mg PRN Q8HRS PRN IV NAUSEA/VOMITING; Start 12/04/16 at 18:30; Stop 12/05/16 at 18:29; Status DC Morphine Sulfate 2 mg PRN Q2HR PRN IV PAIN; Start 12/04/16 at 18:30; Stop at 21:49; Status DC Albuterol Sulfate (Ventolin Neb Soln) 2.5 mg RTQID NEB Last administered on 12/07 07:56; Start 12/05/16 at 08:00 Acetaminophen/ Codeine Phosphate 1 tab 1 tab PRN Q4HRS PRN PO cough Last administered on 12/07/16 11:18; Start 12/04/16 at 21:45 Potassium Chloride 20 meq/ Sodium Chloride 1,010 ml @ 75 mls/hr [id number] IV ; Start 12/04/16 at 21:45; Status UNV Potassium Chloride/Sodium Chloride (KCl 20 Meq-0.45% Nacl) 1,000 ml @ 75 mls/ hr [id number] IV Last administered on 12/06/16 22:56; Start 12/04/16 at 22:00 Aspirin (Eva Aspirin) 325 mg DAILY PO Last administered on 12/07/16 11:01; Start 12/05/16 at 09:00 Atorvastatin Calcium (Lipitor) 40 mg QHS PO Last administered on 12/06/16 22:56 ; Start 12/04/16 at 22:30 Fluoxetine HCl (Prozac) 80 mg DAILYWBKFT PO Last administered on 12/07/16 11:09 ; Start 12/05/16 at 08:00 Levothyroxine Sodium (Synthroid) 112 mcg DAILY07 PO Last administered on 11:00; Start 12/05/16 at 07:00 Metformin HCl (Glucophage) 1,000 mg BIDWMEALS PO Last administered on 12/07/16 11:01; Start 12/05/16 at 08:00 Oxycodone/ Acetaminophen (Percocet 5/325) 1 tab PRN Q4HRS PRN PO SEVERE PAIN Last administered on 12/05/16 08:09; Start 12/04/16 at 22:00 Glimepiride (Amaryl) 4 mg BIDWMEALS PO Last administered on 12/07/16 11:00; Start 12/05/16 at 08:00 Ferrous Sulfate (Feosol) 325 mg DAILYWBKFT PO Last administered on 12/05/16 08: 09; Start 12/05/16 at 08:00; Stop 12/05/16 at 17:42; Status DC Lisinopril (Prinivil) 40 mg DAILY PO Last administered on 12/06/16 09:23; Start 12/05/16 at 09:00 Oxymetazoline HCl (Afrin) 2 spray BID NS Last administered on 12/07/16 11:03; Start 12/04/16 at 23:00 Hydrochlorothiazide (Hydrodiuril) 50 mg DAILY PO Last administered on 12/06/16 09:24; Start 12/05/16 at 09:00 Insulin Aspart (Novolog) 0-5 UNITS TIDWMEALS SQ Last administered on 12/06/16 17:00; Start 12/05/16 at 08:00 Dextrose 12.5 gm PRN Q15MIN PRN IV SEE COMMENTS; Start 12/04/16 at 22:15 Enoxaparin Sodium (Lovenox 40mg Syringe) 40 mg Q24H SQ Last administered on 12/07 09:00; Start 12/05/16 at 09:00; Stop 12/07/16 at 09:25; Status DC Pantoprazole Sodium (Protonix) 40 mg DAILYAC PO Last administered on 12/07/16 11:02; Start 12/05/16 at 07:30 Ferrous Sulfate (Feosol) 325 mg QHS PO Last administered on 12/06/16 22:56; Start 12/05/16 at 21:00 Budesonide 0.5 mg 0.5 mg RTBID NEB Last administered on 12/07/16 07:56; Start 12/06/16 at 20:00 Piperacillin Sod/ Tazobactam Sod 4.5 gm/Sodium Chloride 100 ml @ 200 mls/hr Q6HRS IV Last administered on 12/07/16 10:59; Start 12/06/16 at 18:00 Vancomycin HCl 2 gm/Sodium Chloride 500 ml @ 250 mls/hr Q24H IV Last administered on 12/06/16 16:43; Start 12/06/16 at 17:00 Vancomycin HCl/ Sodium Chloride (Iv Sodium Chloride 0.9% 250ml) 250 ml @ 167 mls/hr Q12H IV Last administered on 12/07/16 05:27; Start 12/07/16 at 05:00 Vancomycin HCl 1 each 1X ONCE MC ; Start 12/18/16 at 04:30; Stop 12/18/16 at 04 :31 Vancomycin HCl (Vanco Per Pharmacy) 1 each PRN DAILY PRN MC SEE COMMENTS Last administered on 12/06/16 16:23; Start 12/06/16 at 16:30 Active Scripts Active Reported Percocet 5-325 Mg Tablet (Oxycodone/Acetaminophen) 1 Each Tablet 1 Tab PO Q4HRS PRN Ventolin Hfa Inhaler (Albuterol Sulfate) 18 Gm Hfa.aer.ad 2 Puff INH Q4HRS Albuterol Sulfate Neb Soln (Albuterol Sulfate) 2.5 Mg/3 Ml Vial.neb 1 Vial NEB PRN Q4HRS Aspirin 325 Mg Tablet 325 Mg PO DAILY Levothyroxine Sodium 112 Mcg Tablet 112 Mcg PO DAILYAC Lisinopril-Hctz 20-25 Mg Tab (Lisinopril/Hydrochlorothiazide) 1 Each Tablet 2 Tab PO DAILY Feosol (Iron,Carbonyl) 45 Mg Tablet 325 Mg PO DAILY Glimepiride 4 Mg Tablet 1 Tab PO BID Atorvastatin Calcium 20 Mg Tablet 40 Mg PO HS Prozac (Fluoxetine Hcl) 10 Mg Capsule 80 Mg PO DAILYWBKFT Metformin Hcl 1,000 Mg Tablet 1 Tab PO BID Vitals/I & O Vital Sign - Last 24 Hours 12/06/16 12/06/16 12/06/16 12/06/16 11:54 14:42 15:34 16:41 Temp 97.0 97.0 Pulse 86 Resp 18 B/P 91/59 Pulse Ox 100 98 98 O2 Delivery Nasal Cannula Room Air Nasal Cannula Room Air O2 Flow Rate 2.0 2.0 2.0 12/06/16 12/06/16 12/06/16 12/06/16 17:35 19:00 19:56 19:57 Temp 98.0 98.0 Pulse 95 Resp 20 B/P 92/45 Pulse Ox 98 97 O2 Delivery Room Air Nasal Cannula Nasal Cannula Nasal Cannula O2 Flow Rate 2.0 2.0 2.0 2.0 12/06/16 12/07/16 12/07/16 12/07/16 23:14 02:36 07:24 07:56 Temp 99.5 99.0 97.8 99.5 99.0 97.8 Pulse 85 86 75 Resp 18 18 20 B/P 100/60 94/52 106/48 Pulse Ox 97 99 98 97 O2 Delivery Nasal Cannula Nasal Cannula Nasal Cannula Nasal Cannula O2 Flow Rate 2.0 2.0 2.0 2.0 12/07/16 12/07/16 12/07/16 12/07/16 07:57 09:00 10:50 11:18 Temp 98.0 98.0 Pulse 78 78 Resp 18 18 B/P 77/35 77/35 Pulse Ox 97 97 O2 Delivery Nasal Cannula Nasal Cannula Nasal Cannula O2 Flow Rate 2.0 2.0 2.0 Intake and Output 12/06/16 12/06/16 12/07/16 15:00 23:00 07:00 Intake Total 200 ml Output Total 1 ml Balance -1 ml 200 ml JENI MCDANIEL K III DO Dec 07, 2016 11:26
[2016-12-07] MEDS: POTASSIUM CL 20MEQ-0.45% NACL 1,000 ML IV SCH ×2 (12:25→18:10)
[2016-12-07] MEDS: VANCOMYCIN PER PHARMACY MC PRN (13:30)
--- NOTE | 2016-12-07 17:04 | PDOC ---
Provider Note Provider Note DATE OF f/u: 12/07/2016 c/c: f/u of Invasive ductal carcinoma of the left breast diagnosed on 09/07/2016 status post left modified radical mastectomy on 09/20/2016. On adjuvant chemo. HISTORY OF PRESENT ILLNESS: The patient is a 65-year-old female who has never had a mammogram previously because of lack of insurance and she noticed redness in the left breast nipple area along with nipple inversion in 12/2015. She did not have medical insurance and hence she did not seek any further investigation and workup for this. She mentions that she was waiting to be eligible for Medicare on 12/01/2016 and she was planning to get this worked up at that time. She saw her primary care physician, Dr. Chantelle Ch in 08/2016. Dr. Ch also felt that she had a mass and she thought that it is best to proceed with further management of this suspected malignancy rather than waiting until 2016. She underwent an incisional biopsy of the left breast on 09/07/2016 and this revealed invasive ductal carcinoma, grade 2 with tumor invasion of the skin. She then underwent left modified radical mastectomy by Dr. Ramos Peres on 09/20/2016. Dr. Peres also noted evidence of axillary lymph node metastasis. Started adjuvant chemo with AC on 10/28/16. Tolerated well except for nausea, bone pains. She presented to the Emergency Room with severe shortness of breath. She relates that she had upper respiratory symptoms for 3 days, but shortness of breath became really bad.. She also now has a sharp chest pain in the middle of her chest, worse with deep breathing and cough. She does have a frequent cough, which is dry and exacerbated by deep breathing. Pain is 8/10. Denies any fevers or chills. No sick family members, but she continues to work 7 days a week. PAST MEDICAL HISTORY: Fibromyalgia, bronchial asthma, hyperlipidemia, depression, anxiety, muscle spasms, diabetes, peripheral neuropathy due to diabetes, anemia, hypothyroidism, and hypertension. REVIEW OF SYSTEMS: has cough, no CP PHYSICAL EXAMINATION: GENERAL APPEARANCE: The patient is a 65-year-old female who is in no acute cardiorespiratory distress. CHEST: Bilaterally symmetrical. HEART: S1, S2 normal. ABDOMEN: Soft, nontender. No hepatosplenomegaly. CENTRAL NERVOUS SYSTEM: No focal deficits. IMPRESSION AND PLAN: 1. Invasive ductal carcinoma of the left breast, grade 2 diagnosed on 09/07/2016 by an incisional biopsy, status post left modified radical mastectomy by Dr. Peers on 09/20/2016. Dr. Peres also noted metastasis to the axillary lymph node. ER positive 97.1%, NV positive 87.3%, Her 2 jacquie neg, Grade II. I recommended adjuvant chemotherapy with Adriamycin and Cytoxan followed by Taxol. then she would benefit from adjuvant Arimidex. Started chemo with AC on 10/28/16. s/p C3 on 11/26/16. 2. Anemia, worse at 6.4 on 12/07/16 - ordered 2 PRBC. 3. Fibromyalgia, management per primary physician. 4. s/p portacath by Dr Peres. 5. Echo 10/15/16 reveals EF of 60%. 6. Peripheral neuropathy due to DM. 7. n/v due to chemo - cont compazine. 8. Dyspnea associated with cough due to pneumonia. Chest ct with LLL consolidation. Suspected underlying chronic obstructive pulmonary disease with mild exacerbation.. I d/w Dr Sorensen. RENU WHYTE MD Dec 07, 2016 17:04
[2016-12-07] MEDS: FERROUS SULFATE 325 MG TABLET PO SCH (21:15)
[2016-12-07] MEDS: ATORVASTATIN CALCIUM 40 MG TABLET. PO SCH (21:15)
[2016-12-07] MEDS: OXYCODONE/APAP 5/325 TABLET. PO PRN (21:18)
[2016-12-08] MEDS: PIPERACILLIN/TAZOBACTAM 4.5 GM in IV NORMAL SALINE 100ML 100 ML IV SCH ×5 (00:08→23:49)
[2016-12-08] MEDS: POTASSIUM CL 20MEQ-0.45% NACL 1,000 ML IV SCH ×2 (02:45→16:38)
[2016-12-08] MEDS: OXYCODONE/APAP 5/325 TABLET. PO PRN ×4 (02:52→22:28)
[2016-12-08 04:38] LABS: BASO % 0 % (0-3); EOS % 0 % (0-3); HEMATOCRIT 24.3 % (36.0-47.0); HEMOGLOBIN 8.2 g/dL (12.0-15.5); LYMPH # 0.3 x10^3/uL (1.0-4.8); LYMPH % 6 % (24-48); MEAN CORPUSCULAR HEMOGLOBIN 30 pg (25-35); MEAN CORPUSCULAR HGB CONC 34 g/dL (31-37); MEAN CORPUSCULAR VOLUME 89 fL (79-100); MONO % 7 % (0-9); NEUT % 87 % (31-73); PLATELET COUNT 193 x10^3/uL (140-400); RED BLOOD COUNT 2.74 x10^6/uL (3.50-5.40); RED CELL DISTRIBUTION WIDTH 16.4 % (11.5-14.5); WHITE BLOOD COUNT 5.2 x10^3/uL (4.0-11.0)
[2016-12-08 04:47] LABS: CALCIUM 7.5 mg/dL (8.5-10.1); CREATININE 1.3 mg/dL (0.6-1.0); GFR 41.2; POTASSIUM 3.6 mmol/L (3.5-5.1)
[2016-12-08] MEDS: VANCOMYCIN PER PHARMACY MC PRN (05:18)
[2016-12-08] MEDS: LEVOTHYROXINE 112 MCG TABLET PO SCH (06:31)
[2016-12-08] MEDS: ACETAMINOPHEN/CODEINE 300/30MG TABLET PO PRN (06:32)
[2016-12-08] MEDS: VANCOMYCIN 1 GM in IV NORMAL SALINE 250ML 250 ML IV SCH ×2 (06:32→16:37)
[2016-12-08 07:00] VITALS: BP 122/64
[2016-12-08] MEDS: BUDESONIDE 0.5 MG/2 ML NEBU NEB SCH ×3 (08:00→19:57)
[2016-12-08] MEDS: INSULIN ASPART 300 UNITS/3 ML INSULN.PEN SQ SCH ×3 (08:00→16:36)
[2016-12-08] MEDS: GLIMEPIRIDE 2 MG TABLET PO SCH ×2 (08:00→16:36)
[2016-12-08] MEDS: METFORMIN 1,000 MG TABLET PO SCH ×2 (08:00→16:36)
[2016-12-08] MEDS: ALBUTEROL SULFATE 2.5 MG/3 ML NEBU. NEB SCH ×4 (08:43→19:57)
[2016-12-08] MEDS: PANTOPRAZOLE 40 MG TABLET. PO SCH (09:03)
[2016-12-08] MEDS: ASPIRIN 325 MG TABLET PO SCH (09:03)
[2016-12-08] MEDS: LISINOPRIL 40 MG TABLET. PO SCH (09:03)
[2016-12-08] MEDS: HYDROCHLOROTHIAZIDE 25 MG TABLET PO SCH (09:03)
[2016-12-08] MEDS: OXYMETAZOLINE 0.05% NASAL SPRAY 30ML BOTTLE. NS SCH ×2 (09:04→21:06)
[2016-12-08] MEDS: FLUOXETINE HCL 20 MG CAPSULE PO SCH (09:04)
[2016-12-08 10:39] VITALS: BP 119/46
--- NOTE | 2016-12-08 11:07 | PDOC ---
PROGRESS NOTES Chief Complaint Chief Complaint 1. Viral URI 2. Neutropenia 3. Anemia 4. DM 5. Hypertension 6. Hyperlipidemia 7. Depression 8. Prophylaxis 9. Breast CA History of Present Illness History of Present Illness Pt awake, alert, and talkative the AM for her evaluation. Pt's questions and concerns were all addressed and answered. Pt watching TV. Pt appears to be approaching her baseline. CBC this AM showed Hgb at 8.2 after transfused 2 units. Vitals Vitals Vital Signs Date Time Temp Pulse Resp B/P Pulse Ox O2 Delivery O2 Flow Rate FiO2 12/08/16 10:39 97.5 76 20 119/46 97 Nasal Cannula 2.0 97.5 Physical Exam General: Alert, Oriented X3, Cooperative Heart: Regular rate, Normal S1, Normal S2, No murmurs Lungs: Other (mild right lower lobe wheezes) Abdomen: Normal bowel sounds, Soft, No tenderness Extremities: No clubbing, No cyanosis, No edema Skin: No rashes, No breakdown, No significant lesion Labs LABS Laboratory Tests Test 12/07/16 12:33 12/07/16 16:19 12/07/16 20:33 12/08/16 04:30 Glucose (Fingerstick) 137mg/dL (70-99) 119mg/dL (70-99) 131mg/dL (70-99) White Blood Count 5.2x10^3/uL (4.0-11.0) Red Blood Count 2.74x10^6/uL (3.50-5.40) Hemoglobin 8.2g/dL (12.0-15.5) Hematocrit 24.3% (36.0-47.0) Mean Corpuscular Volume 89fL (79-100) Mean Corpuscular Hemoglobin 30pg (25-35) Mean Corpuscular Hemoglobin Concent 34g/dL (31-37) Red Cell Distribution Width 16.4% (11.5-14.5) Platelet Count 193x10^3/uL (140-400) Neutrophils (%) (Auto) 87% (31-73) Lymphocytes (%) (Auto) 6% (24-48) Monocytes (%) (Auto) 7% (0-9) Eosinophils (%) (Auto) 0% (0-3) Basophils (%) (Auto) 0% (0-3) Neutrophils # (Auto) 4.5x10^3uL (1.8-7.7) Lymphocytes # (Auto) 0.3x10^3/uL (1.0-4.8) Monocytes # (Auto) 0.4x10^3/uL (0.0-1.1) Eosinophils # (Auto) 0.0x10^3/uL (0.0-0.7) Basophils # (Auto) 0.0x10^3/uL (0.0-0.2) Sodium Level 139mmol/L (136-145) Potassium Level 3.6mmol/L (3.5-5.1) Chloride Level 107mmol/L (98-107) Carbon Dioxide Level 22mmol/L (21-32) Anion Gap 10 (6-14) Blood Urea Nitrogen 9mg/dL (7-20) Creatinine 1.3mg/dL (0.6-1.0) Estimated GFR (Cockcroft-Gault) 41.2 Glucose Level 111mg/dL (70-99) Calcium Level 7.5mg/dL (8.5-10.1) Vancomycin Level Trough 20.2mcg/mL (10.0-20.0) Vancomycin Last Dose Date Unknown Vancomycin Last Dose Time Unknown Review of Systems Review of Systems Patient complaint of hunger Patient complaint of fatigue Assessment and Plan Assessmemt and Plan Problems Medical Problems: (1) History of breast cancer Status: Acute (2) Shortness of breath Status: Acute (3) Tachypnea Status: Acute Assessment: 1. Viral URI 2. Neutropenia 3. Anemia 4. DM 5. Hypertension 6. Hyperlipidemia 7. Depression 8. Prophylaxis 9. Breast CA Plan: Continue to monitor the patient per floor protocol Continue Vanc and Zosyn Continue daily labs Daily PTOT DW RN Appreciate all subspecialty input Hope to DC later this week when ok with Pulmonary Problems: Comment Review of Relevant I have reviewed the following items moise (where applicable) has been applied. Labs Laboratory Tests Test 12/06/16 11:35 12/06/16 14:00 12/06/16 16:35 12/06/16 20:34 Glucose (Fingerstick) 160mg/dL (70-99) 195mg/dL (70-99) 154mg/dL (70-99) Clostridium difficile Toxin (PCR) Negative (Negative) Test 12/06/16 23:00 12/07/16 05:30 12/07/16 06:26 12/07/16 07:56 Influenza Type A Antigen Negative (NEGATIVE) Influenza Type B Antigen Negative (NEGATIVE) Sodium Level 132mmol/L (136-145) Potassium Level 3.3mmol/L (3.5-5.1) Chloride Level 101mmol/L (98-107) Carbon Dioxide Level 22mmol/L (21-32) Anion Gap 9 (6-14) Blood Urea Nitrogen 11mg/dL (7-20) Creatinine 1.1mg/dL (0.6-1.0) Estimated GFR (Cockcroft-Gault) 50.0 Glucose Level 144mg/dL (70-99) Calcium Level 7.5mg/dL (8.5-10.1) White Blood Count 7.2x10^3/uL (4.0-11.0) Red Blood Count 2.16x10^6/uL (3.50-5.40) Hemoglobin 6.4g/dL (12.0-15.5) Hematocrit 18.6% (36.0-47.0) Mean Corpuscular Volume 86fL (79-100) Mean Corpuscular Hemoglobin 30pg (25-35) Mean Corpuscular Hemoglobin Concent 34g/dL (31-37) Red Cell Distribution Width 17.8% (11.5-14.5) Platelet Count 185x10^3/uL (140-400) Neutrophils (%) (Auto) 90% (31-73) Lymphocytes (%) (Auto) 4% (24-48) Monocytes (%) (Auto) 6% (0-9) Eosinophils (%) (Auto) 0% (0-3) Basophils (%) (Auto) 0% (0-3) Neutrophils # (Auto) 6.4x10^3uL (1.8-7.7) Lymphocytes # (Auto) 0.3x10^3/uL (1.0-4.8) Monocytes # (Auto) 0.4x10^3/uL (0.0-1.1) Eosinophils # (Auto) 0.0x10^3/uL (0.0-0.7) Basophils # (Auto) 0.0x10^3/uL (0.0-0.2) Glucose (Fingerstick) 127mg/dL (70-99) Test 12/07/16 12:33 12/07/16 16:19 12/07/16 20:33 12/08/16 04:30 Glucose (Fingerstick) 137mg/dL (70-99) 119mg/dL (70-99) 131mg/dL (70-99) White Blood Count 5.2x10^3/uL (4.0-11.0) Red Blood Count 2.74x10^6/uL (3.50-5.40) Hemoglobin 8.2g/dL (12.0-15.5) Hematocrit 24.3% (36.0-47.0) Mean Corpuscular Volume 89fL (79-100) Mean Corpuscular Hemoglobin 30pg (25-35) Mean Corpuscular Hemoglobin Concent 34g/dL (31-37) Red Cell Distribution Width 16.4% (11.5-14.5) Platelet Count 193x10^3/uL (140-400) Neutrophils (%) (Auto) 87% (31-73) Lymphocytes (%) (Auto) 6% (24-48) Monocytes (%) (Auto) 7% (0-9) Eosinophils (%) (Auto) 0% (0-3) Basophils (%) (Auto) 0% (0-3) Neutrophils # (Auto) 4.5x10^3uL (1.8-7.7) Lymphocytes # (Auto) 0.3x10^3/uL (1.0-4.8) Monocytes # (Auto) 0.4x10^3/uL (0.0-1.1) Eosinophils # (Auto) 0.0x10^3/uL (0.0-0.7) Basophils # (Auto) 0.0x10^3/uL (0.0-0.2) Sodium Level 139mmol/L (136-145) Potassium Level 3.6mmol/L (3.5-5.1) Chloride Level 107mmol/L (98-107) Carbon Dioxide Level 22mmol/L (21-32) Anion Gap 10 (6-14) Blood Urea Nitrogen 9mg/dL (7-20) Creatinine 1.3mg/dL (0.6-1.0) Estimated GFR (Cockcroft-Gault) 41.2 Glucose Level 111mg/dL (70-99) Calcium Level 7.5mg/dL (8.5-10.1) Vancomycin Level Trough 20.2mcg/mL (10.0-20.0) Vancomycin Last Dose Date Unknown Vancomycin Last Dose Time Unknown Laboratory Tests Test 12/07/16 12:33 12/07/16 16:19 12/07/16 20:33 12/08/16 04:30 Glucose (Fingerstick) 137mg/dL (70-99) 119mg/dL (70-99) 131mg/dL (70-99) White Blood Count 5.2x10^3/uL (4.0-11.0) Red Blood Count 2.74x10^6/uL (3.50-5.40) Hemoglobin 8.2g/dL (12.0-15.5) Hematocrit 24.3% (36.0-47.0) Mean Corpuscular Volume 89fL (79-100) Mean Corpuscular Hemoglobin 30pg (25-35) Mean Corpuscular Hemoglobin Concent 34g/dL (31-37) Red Cell Distribution Width 16.4% (11.5-14.5) Platelet Count 193x10^3/uL (140-400) Neutrophils (%) (Auto) 87% (31-73) Lymphocytes (%) (Auto) 6% (24-48) Monocytes (%) (Auto) 7% (0-9) Eosinophils (%) (Auto) 0% (0-3) Basophils (%) (Auto) 0% (0-3) Neutrophils # (Auto) 4.5x10^3uL (1.8-7.7) Lymphocytes # (Auto) 0.3x10^3/uL (1.0-4.8) Monocytes # (Auto) 0.4x10^3/uL (0.0-1.1) Eosinophils # (Auto) 0.0x10^3/uL (0.0-0.7) Basophils # (Auto) 0.0x10^3/uL (0.0-0.2) Sodium Level 139mmol/L (136-145) Potassium Level 3.6mmol/L (3.5-5.1) Chloride Level 107mmol/L (98-107) Carbon Dioxide Level 22mmol/L (21-32) Anion Gap 10 (6-14) Blood Urea Nitrogen 9mg/dL (7-20) Creatinine 1.3mg/dL (0.6-1.0) Estimated GFR (Cockcroft-Gault) 41.2 Glucose Level 111mg/dL (70-99) Calcium Level 7.5mg/dL (8.5-10.1) Vancomycin Level Trough 20.2mcg/mL (10.0-20.0) Vancomycin Last Dose Date Unknown Vancomycin Last Dose Time Unknown Microbiology 12/04/16 Blood Culture - Preliminary, Resulted NO GROWTH AFTER 2 DAYS Medications Current Medications Albuterol/ Ipratropium (Duoneb) 3 ml 1X ONCE NEB Last administered on 16:31; Start 12/04/16 at 15:15; Stop 12/04/16 at 15:29; Status DC Ondansetron HCl (Zofran) 4 mg PRN Q8HRS PRN IV NAUSEA/VOMITING; Start 12/04/16 at 18:30; Stop 12/05/16 at 18:29; Status DC Morphine Sulfate 2 mg PRN Q2HR PRN IV PAIN; Start 12/04/16 at 18:30; Stop at 21:49; Status DC Albuterol Sulfate (Ventolin Neb Soln) 2.5 mg RTQID NEB Last administered on 12/08 08:43; Start 12/05/16 at 08:00 Acetaminophen/ Codeine Phosphate 1 tab 1 tab PRN Q4HRS PRN PO cough Last administered on 12/08/16 06:32; Start 12/04/16 at 21:45 Potassium Chloride 20 meq/ Sodium Chloride 1,010 ml @ 75 mls/hr [id number] IV ; Start 12/04/16 at 21:45; Status UNV Potassium Chloride/Sodium Chloride (KCl 20 Meq-0.45% Nacl) 1,000 ml @ 75 mls/ hr [id number] IV Last administered on 12/08/16 02:45; Start 12/04/16 at 22:00 Aspirin (Eva Aspirin) 325 mg DAILY PO Last administered on 12/08/16 09:03; Start 12/05/16 at 09:00 Atorvastatin Calcium (Lipitor) 40 mg QHS PO Last administered on 12/07/16 21:15 ; Start 12/04/16 at 22:30 Fluoxetine HCl (Prozac) 80 mg DAILYWBKFT PO Last administered on 12/08/16 09:04 ; Start 12/05/16 at 08:00 Levothyroxine Sodium (Synthroid) 112 mcg DAILY07 PO Last administered on 06:31; Start 12/05/16 at 07:00 Metformin HCl (Glucophage) 1,000 mg BIDWMEALS PO Last administered on 12/07/16 16:54; Start 12/05/16 at 08:00 Oxycodone/ Acetaminophen (Percocet 5/325) 1 tab PRN Q4HRS PRN PO SEVERE PAIN Last administered on 12/08/16 02:52; Start 12/04/16 at 22:00 Glimepiride (Amaryl) 4 mg BIDWMEALS PO Last administered on 12/07/16 18:15; Start 12/05/16 at 08:00 Ferrous Sulfate (Feosol) 325 mg DAILYWBKFT PO Last administered on 12/05/16 08: 09; Start 12/05/16 at 08:00; Stop 12/05/16 at 17:42; Status DC Lisinopril (Prinivil) 40 mg DAILY PO Last administered on 12/08/16 09:03; Start 12/05/16 at 09:00 Oxymetazoline HCl (Afrin) 2 spray BID NS Last administered on 12/08/16 09:04; Start 12/04/16 at 23:00 Hydrochlorothiazide (Hydrodiuril) 50 mg DAILY PO Last administered on 12/08/16 09:03; Start 12/05/16 at 09:00 Insulin Aspart (Novolog) 0-5 UNITS TIDWMEALS SQ Last administered on 12/06/16 17:00; Start 12/05/16 at 08:00 Dextrose 12.5 gm PRN Q15MIN PRN IV SEE COMMENTS; Start 12/04/16 at 22:15 Enoxaparin Sodium (Lovenox 40mg Syringe) 40 mg Q24H SQ Last administered on 12/07 09:00; Start 12/05/16 at 09:00; Stop 12/07/16 at 09:25; Status DC Pantoprazole Sodium (Protonix) 40 mg DAILYAC PO Last administered on 12/08/16 09:03; Start 12/05/16 at 07:30 Ferrous Sulfate (Feosol) 325 mg QHS PO Last administered on 12/07/16 21:15; Start 12/05/16 at 21:00 Budesonide 0.5 mg 0.5 mg RTBID NEB Last administered on 12/08/16 08:43; Start 12/06/16 at 20:00 Piperacillin Sod/ Tazobactam Sod 4.5 gm/Sodium Chloride 100 ml @ 200 mls/hr Q6HRS IV Last administered on 12/08/16 05:29; Start 12/06/16 at 18:00 Vancomycin HCl 2 gm/Sodium Chloride 500 ml @ 250 mls/hr Q24H IV Last administered on 12/06/16 16:43; Start 12/06/16 at 17:00; Stop 12/07/16 at 13:07; Status DC Vancomycin HCl/ Sodium Chloride (Iv Sodium Chloride 0.9% 250ml) 250 ml @ 167 mls/hr Q12H IV Last administered on 12/07/16 16:54; Start 12/07/16 at 05:00; Stop 12/08/16 at 05:13; Status DC Vancomycin HCl 1 each 1X ONCE MC Last administered on 12/08/16 04:30; Start at 04:30; Stop 12/08/16 at 04:31; Status DC Vancomycin HCl 1 each 1 each PRN DAILY PRN MC SEE COMMENTS Last administered on 12/08/16 05:18; Start 12/06/16 at 16:30 Vancomycin HCl/ Sodium Chloride (Iv Sodium Chloride 0.9% 250ml) 250 ml @ 250 mls/hr Q12H IV Last administered on 12/08/16 06:32; Start 12/08/16 at 06:00 Active Scripts Active Reported Percocet 5-325 Mg Tablet (Oxycodone/Acetaminophen) 1 Each Tablet 1 Tab PO Q4HRS PRN Ventolin Hfa Inhaler (Albuterol Sulfate) 18 Gm Hfa.aer.ad 2 Puff INH Q4HRS Albuterol Sulfate Neb Soln (Albuterol Sulfate) 2.5 Mg/3 Ml Vial.neb 1 Vial NEB PRN Q4HRS Aspirin 325 Mg Tablet 325 Mg PO DAILY Levothyroxine Sodium 112 Mcg Tablet 112 Mcg PO DAILYAC Lisinopril-Hctz 20-25 Mg Tab (Lisinopril/Hydrochlorothiazide) 1 Each Tablet 2 Tab PO DAILY Feosol (Iron,Carbonyl) 45 Mg Tablet 325 Mg PO DAILY Glimepiride 4 Mg Tablet 1 Tab PO BID Atorvastatin Calcium 20 Mg Tablet 40 Mg PO HS Prozac (Fluoxetine Hcl) 10 Mg Capsule 80 Mg PO DAILYWBKFT Metformin Hcl 1,000 Mg Tablet 1 Tab PO BID Vitals/I & O Vital Sign - Last 24 Hours 12/07/16 12/07/16 12/07/16 12/07/16 11:18 11:27 13:29 13:54 Temp 98.2 98.0 98.2 98.0 Pulse 76 72 Resp 18 18 18 B/P 83/32 81/47 Pulse Ox 98 O2 Delivery Nasal Cannula Nasal Cannula O2 Flow Rate 2.0 2.0 12/07/16 12/07/16 12/07/16 12/07/16 14:06 14:16 15:43 16:20 Temp 98.3 97.5 97.3 98.3 97.5 97.3 Pulse 72 73 71 Resp 18 20 16 B/P 88/44 92/46 96/45 Pulse Ox 97 O2 Delivery Nasal Cannula Nasal Cannula O2 Flow Rate 2.0 2.0 12/07/16 12/07/16 12/07/16 12/07/16 17:02 17:19 19:00 19:13 Temp 97.3 98.2 97.3 98.2 97.3 98.2 97.3 98.2 Pulse 71 76 79 78 Resp 16 16 21 18 B/P 96/45 98/48 126/57 98/53 Pulse Ox 100 O2 Delivery Nasal Cannula O2 Flow Rate 2.0 12/07/16 12/07/16 12/07/16 12/07/16 20:00 21:18 21:23 22:40 Temp 98.2 98.2 Pulse 74 Resp 16 B/P 91/52 Pulse Ox 98 95 O2 Delivery Nasal Cannula Room Air Nasal Cannula Nasal Cannula O2 Flow Rate 2.0 2.0 2.0 2/812/08/16 12/08/16 12/08/16 02:52 04:17 06:32 07:00 Temp 97.5 97.5 Pulse 72 Resp 20 B/P 122/64 Pulse Ox 100 O2 Delivery Nasal Cannula Nasal Cannula Nasal Cannula Nasal Cannula O2 Flow Rate 2.0 2.0 2.0 2.0 12/08/16 12/08/16 12/08/16 12/08/16 07:32 07:44 08:47 09:03 Pulse 74 Resp 18 B/P 91/52 Pulse Ox 99 99 O2 Delivery Nasal Cannula Nasal Cannula Room Air O2 Flow Rate 2.0 2.0 12/08/16 10:39 Temp 97.5 97.5 Pulse 76 Resp 20 B/P 119/46 Pulse Ox 97 O2 Delivery Nasal Cannula O2 Flow Rate 2.0 Intake and Output 12/07/16 12/07/16 12/08/16 15:00 23:00 07:00 Intake Total 530 ml 2080 ml 1600 ml Balance 530 ml 2080 ml 1600 ml JENI MCDANIEL III DO Dec 08, 2016 11:07
--- NOTE | 2016-12-08 11:25 | PDOC ---
PULMONARY PROGRESS NOTES Subjective improving cough Vitals Vital Signs Date Time Temp Pulse Resp B/P Pulse Ox O2 Delivery O2 Flow Rate FiO2 12/08/16 10:39 97.5 76 20 119/46 97 Nasal Cannula 2.0 97.5 General: Alert, No acute distress Lungs: Other (decrease bs) Cardiovascular: S1 Abdomen: Soft Neuro Exam: Alert Extremities: No Edema Skin: Warm Labs Laboratory Tests Test 12/06/16 11:35 12/06/16 14:00 12/06/16 16:35 12/06/16 20:34 Glucose (Fingerstick) 160mg/dL (70-99) 195mg/dL (70-99) 154mg/dL (70-99) Clostridium difficile Toxin (PCR) Negative (Negative) Test 12/06/16 23:00 12/07/16 05:30 12/07/16 06:26 12/07/16 07:56 Influenza Type A Antigen Negative (NEGATIVE) Influenza Type B Antigen Negative (NEGATIVE) Sodium Level 132mmol/L (136-145) Potassium Level 3.3mmol/L (3.5-5.1) Chloride Level 101mmol/L (98-107) Carbon Dioxide Level 22mmol/L (21-32) Anion Gap 9 (6-14) Blood Urea Nitrogen 11mg/dL (7-20) Creatinine 1.1mg/dL (0.6-1.0) Estimated GFR (Cockcroft-Gault) 50.0 Glucose Level 144mg/dL (70-99) Calcium Level 7.5mg/dL (8.5-10.1) White Blood Count 7.2x10^3/uL (4.0-11.0) Red Blood Count 2.16x10^6/uL (3.50-5.40) Hemoglobin 6.4g/dL (12.0-15.5) Hematocrit 18.6% (36.0-47.0) Mean Corpuscular Volume 86fL (79-100) Mean Corpuscular Hemoglobin 30pg (25-35) Mean Corpuscular Hemoglobin Concent 34g/dL (31-37) Red Cell Distribution Width 17.8% (11.5-14.5) Platelet Count 185x10^3/uL (140-400) Neutrophils (%) (Auto) 90% (31-73) Lymphocytes (%) (Auto) 4% (24-48) Monocytes (%) (Auto) 6% (0-9) Eosinophils (%) (Auto) 0% (0-3) Basophils (%) (Auto) 0% (0-3) Neutrophils # (Auto) 6.4x10^3uL (1.8-7.7) Lymphocytes # (Auto) 0.3x10^3/uL (1.0-4.8) Monocytes # (Auto) 0.4x10^3/uL (0.0-1.1) Eosinophils # (Auto) 0.0x10^3/uL (0.0-0.7) Basophils # (Auto) 0.0x10^3/uL (0.0-0.2) Glucose (Fingerstick) 127mg/dL (70-99) Test 12/07/16 12:33 12/07/16 16:19 12/07/16 20:33 12/08/16 04:30 Glucose (Fingerstick) 137mg/dL (70-99) 119mg/dL (70-99) 131mg/dL (70-99) White Blood Count 5.2x10^3/uL (4.0-11.0) Red Blood Count 2.74x10^6/uL (3.50-5.40) Hemoglobin 8.2g/dL (12.0-15.5) Hematocrit 24.3% (36.0-47.0) Mean Corpuscular Volume 89fL (79-100) Mean Corpuscular Hemoglobin 30pg (25-35) Mean Corpuscular Hemoglobin Concent 34g/dL (31-37) Red Cell Distribution Width 16.4% (11.5-14.5) Platelet Count 193x10^3/uL (140-400) Neutrophils (%) (Auto) 87% (31-73) Lymphocytes (%) (Auto) 6% (24-48) Monocytes (%) (Auto) 7% (0-9) Eosinophils (%) (Auto) 0% (0-3) Basophils (%) (Auto) 0% (0-3) Neutrophils # (Auto) 4.5x10^3uL (1.8-7.7) Lymphocytes # (Auto) 0.3x10^3/uL (1.0-4.8) Monocytes # (Auto) 0.4x10^3/uL (0.0-1.1) Eosinophils # (Auto) 0.0x10^3/uL (0.0-0.7) Basophils # (Auto) 0.0x10^3/uL (0.0-0.2) Sodium Level 139mmol/L (136-145) Potassium Level 3.6mmol/L (3.5-5.1) Chloride Level 107mmol/L (98-107) Carbon Dioxide Level 22mmol/L (21-32) Anion Gap 10 (6-14) Blood Urea Nitrogen 9mg/dL (7-20) Creatinine 1.3mg/dL (0.6-1.0) Estimated GFR (Cockcroft-Gault) 41.2 Glucose Level 111mg/dL (70-99) Calcium Level 7.5mg/dL (8.5-10.1) Vancomycin Level Trough 20.2mcg/mL (10.0-20.0) Vancomycin Last Dose Date Unknown Vancomycin Last Dose Time Unknown Test 12/08/16 08:23 Glucose (Fingerstick) 100mg/dL (70-99) Laboratory Tests Test 12/07/16 12:33 12/07/16 16:19 12/07/16 20:33 12/08/16 04:30 Glucose (Fingerstick) 137mg/dL (70-99) 119mg/dL (70-99) 131mg/dL (70-99) White Blood Count 5.2x10^3/uL (4.0-11.0) Red Blood Count 2.74x10^6/uL (3.50-5.40) Hemoglobin 8.2g/dL (12.0-15.5) Hematocrit 24.3% (36.0-47.0) Mean Corpuscular Volume 89fL (79-100) Mean Corpuscular Hemoglobin 30pg (25-35) Mean Corpuscular Hemoglobin Concent 34g/dL (31-37) Red Cell Distribution Width 16.4% (11.5-14.5) Platelet Count 193x10^3/uL (140-400) Neutrophils (%) (Auto) 87% (31-73) Lymphocytes (%) (Auto) 6% (24-48) Monocytes (%) (Auto) 7% (0-9) Eosinophils (%) (Auto) 0% (0-3) Basophils (%) (Auto) 0% (0-3) Neutrophils # (Auto) 4.5x10^3uL (1.8-7.7) Lymphocytes # (Auto) 0.3x10^3/uL (1.0-4.8) Monocytes # (Auto) 0.4x10^3/uL (0.0-1.1) Eosinophils # (Auto) 0.0x10^3/uL (0.0-0.7) Basophils # (Auto) 0.0x10^3/uL (0.0-0.2) Sodium Level 139mmol/L (136-145) Potassium Level 3.6mmol/L (3.5-5.1) Chloride Level 107mmol/L (98-107) Carbon Dioxide Level 22mmol/L (21-32) Anion Gap 10 (6-14) Blood Urea Nitrogen 9mg/dL (7-20) Creatinine 1.3mg/dL (0.6-1.0) Estimated GFR (Cockcroft-Gault) 41.2 Glucose Level 111mg/dL (70-99) Calcium Level 7.5mg/dL (8.5-10.1) Vancomycin Level Trough 20.2mcg/mL (10.0-20.0) Vancomycin Last Dose Date Unknown Vancomycin Last Dose Time Unknown Test 12/08/16 08:23 Glucose (Fingerstick) 100mg/dL (70-99) Medications Active Scripts Medications Dose Route/Sig Days Date Category Percocet 5-325 Mg Tablet (Oxycodone/Acetaminophen) 1 Each Tablet 1 Tab PO Q4HRS PRN 09/07/16 Reported Ventolin Hfa Inhaler (Albuterol Sulfate) 18 Gm Hfa.aer.ad 2 Puff INH Q4HRS 09/06/16 Reported Albuterol Sulfate Neb Soln (Albuterol Sulfate) 2.5 Mg/3 Ml Vial.neb 1 Vial NEB PRN Q4HRS 09/06/16 Reported Aspirin 325 Mg Tablet 325 Mg PO DAILY 09/06/16 Reported Levothyroxine Sodium 112 Mcg Tablet 112 Mcg PO DAILYAC 09/06/16 Reported Lisinopril-Hctz 20-25 Mg Tab (Lisinopril/Hydrochlorothiazide) 1 Each Tablet 2 Tab PO DAILY 12/13/14 Reported Feosol (Iron,Carbonyl) 45 Mg Tablet 325 Mg PO DAILY 12/13/14 Reported Glimepiride 4 Mg Tablet 1 Tab PO BID 12/13/14 Reported Atorvastatin Calcium 20 Mg Tablet 40 Mg PO HS 12/13/14 Reported Prozac (Fluoxetine Hcl) 10 Mg Capsule 80 Mg PO DAILYWBKFT 11/14/14 Reported Metformin Hcl 1,000 Mg Tablet 1 Tab PO BID 11/14/14 Reported Impression . 1. Dyspnea associated with cough due to pneumonia. Chest ct with LLL consolidation. 2. Suspected underlying chronic obstructive pulmonary disease with mild exacerbation. 3. History of breast cancer status post modified radical mastectomy on the left followed by chemo. She had axillary lymph node involvement. 4. Mild hyponatremia. 5. Anemia, probably secondary to chemo. improved Plan . 1. influenza screen.neg. 2. Noncontrast CT chest with LLL consolidation 3. Continue with present bronchodilators. 4. Follow Oncology recommendations. 5. BS empiric antibiotics. 6. off Lovenox for DVT prophylaxis.(anemia) 7. transfusion per PCP 8. Pulmonary status has improved. 9. could go home in am on PO antibiotics YAJAIRA HARVEY MD Dec 08, 2016 11:25
[2016-12-08 15:44] VITALS: BP 140/48
[2016-12-08 19:00] VITALS: BP 111/53
[2016-12-08] MEDS: ATORVASTATIN CALCIUM 40 MG TABLET. PO SCH (21:05)
[2016-12-08] MEDS: FERROUS SULFATE 325 MG TABLET PO SCH (21:06)
[2016-12-08 23:00] VITALS: BP 112/62
[2016-12-09 03:00] VITALS: BP 117/49
[2016-12-09] MEDS: OXYCODONE/APAP 5/325 TABLET. PO PRN ×4 (03:02→20:12)
[2016-12-09] MEDS: PIPERACILLIN/TAZOBACTAM 4.5 GM in IV NORMAL SALINE 100ML 100 ML IV SCH ×3 (05:40→17:15)
[2016-12-09 06:26] LABS: BASO # 0.1 x10^3/uL (0.0-0.2); BASO % 1 % (0-3); EOS % 1 % (0-3); HEMATOCRIT 25.3 % (36.0-47.0); HEMOGLOBIN 8.7 g/dL (12.0-15.5); LYMPH # 0.4 x10^3/uL (1.0-4.8); LYMPH % 7 % (24-48); MEAN CORPUSCULAR HEMOGLOBIN 30 pg (25-35); MEAN CORPUSCULAR HGB CONC 34 g/dL (31-37); MEAN CORPUSCULAR VOLUME 88 fL (79-100); MONO % 6 % (0-9); NEUT % 86 % (31-73); PLATELET COUNT 239 x10^3/uL (140-400); RED BLOOD COUNT 2.89 x10^6/uL (3.50-5.40); RED CELL DISTRIBUTION WIDTH 16.6 % (11.5-14.5); WHITE BLOOD COUNT 5.6 x10^3/uL (4.0-11.0)
[2016-12-09] MEDS: PANTOPRAZOLE 40 MG TABLET. PO SCH (06:29)
[2016-12-09] MEDS: LEVOTHYROXINE 112 MCG TABLET PO SCH (06:29)
[2016-12-09] MEDS: VANCOMYCIN 1 GM in IV NORMAL SALINE 250ML 250 ML IV SCH ×2 (06:29→18:16)
[2016-12-09 06:30] LABS: CALCIUM 8.2 mg/dL (8.5-10.1); GFR 55.8; POTASSIUM 3.6 mmol/L (3.5-5.1)
[2016-12-09] MEDS: ALBUTEROL SULFATE 2.5 MG/3 ML NEBU. NEB SCH ×4 (07:25→20:46)
[2016-12-09] MEDS: BUDESONIDE 0.5 MG/2 ML NEBU NEB SCH ×2 (07:25→20:46)
[2016-12-09 07:32] VITALS: BP 126/60
[2016-12-09] MEDS: INSULIN ASPART 300 UNITS/3 ML INSULN.PEN SQ SCH ×3 (08:00→17:00)
[2016-12-09] MEDS ORDERED: ONDANSETRON PF 4 MG/2 ML VIAL. IV ONE (08:30)
[2016-12-09] MEDS: ASPIRIN 325 MG TABLET PO SCH (08:44)
[2016-12-09] MEDS: FLUOXETINE HCL 20 MG CAPSULE PO SCH (08:44)
[2016-12-09] MEDS: GLIMEPIRIDE 2 MG TABLET PO SCH ×2 (08:44→17:15)
[2016-12-09] MEDS: LISINOPRIL 40 MG TABLET. PO SCH (08:45)
[2016-12-09] MEDS: HYDROCHLOROTHIAZIDE 25 MG TABLET PO SCH (08:45)
[2016-12-09] MEDS: METFORMIN 1,000 MG TABLET PO SCH ×2 (08:46→17:15)
[2016-12-09] MEDS: OXYMETAZOLINE 0.05% NASAL SPRAY 30ML BOTTLE. NS SCH ×2 (08:48→20:12)
--- NOTE | 2016-12-09 08:54 | PDOC ---
PULMONARY PROGRESS NOTES Subjective improving cough Vitals Vital Signs Date Time Temp Pulse Resp B/P Pulse Ox O2 Delivery O2 Flow Rate FiO2 12/09/16 08:45 72 126/60 12/09/16 08:44 Nasal Cannula 2.0 12/09/16 07:32 98.1 17 99 98.1 General: Alert, No acute distress Lungs: Other (decrease bs) Cardiovascular: S1 Abdomen: Soft Neuro Exam: Alert Extremities: No Edema Skin: Warm Labs Laboratory Tests Test 12/07/16 12:33 12/07/16 16:19 12/07/16 20:33 12/08/16 04:30 Glucose (Fingerstick) 137mg/dL (70-99) 119mg/dL (70-99) 131mg/dL (70-99) White Blood Count 5.2x10^3/uL (4.0-11.0) Red Blood Count 2.74x10^6/uL (3.50-5.40) Hemoglobin 8.2g/dL (12.0-15.5) Hematocrit 24.3% (36.0-47.0) Mean Corpuscular Volume 89fL (79-100) Mean Corpuscular Hemoglobin 30pg (25-35) Mean Corpuscular Hemoglobin Concent 34g/dL (31-37) Red Cell Distribution Width 16.4% (11.5-14.5) Platelet Count 193x10^3/uL (140-400) Neutrophils (%) (Auto) 87% (31-73) Lymphocytes (%) (Auto) 6% (24-48) Monocytes (%) (Auto) 7% (0-9) Eosinophils (%) (Auto) 0% (0-3) Basophils (%) (Auto) 0% (0-3) Neutrophils # (Auto) 4.5x10^3uL (1.8-7.7) Lymphocytes # (Auto) 0.3x10^3/uL (1.0-4.8) Monocytes # (Auto) 0.4x10^3/uL (0.0-1.1) Eosinophils # (Auto) 0.0x10^3/uL (0.0-0.7) Basophils # (Auto) 0.0x10^3/uL (0.0-0.2) Sodium Level 139mmol/L (136-145) Potassium Level 3.6mmol/L (3.5-5.1) Chloride Level 107mmol/L (98-107) Carbon Dioxide Level 22mmol/L (21-32) Anion Gap 10 (6-14) Blood Urea Nitrogen 9mg/dL (7-20) Creatinine 1.3mg/dL (0.6-1.0) Estimated GFR (Cockcroft-Gault) 41.2 Glucose Level 111mg/dL (70-99) Calcium Level 7.5mg/dL (8.5-10.1) Vancomycin Level Trough 20.2mcg/mL (10.0-20.0) Vancomycin Last Dose Date Unknown Vancomycin Last Dose Time Unknown Test 12/08/16 08:23 12/08/16 11:31 12/08/16 16:21 12/08/16 21:44 Glucose (Fingerstick) 100mg/dL (70-99) 116mg/dL (70-99) 115mg/dL (70-99) 136mg/dL (70-99) Test 12/09/16 05:50 12/09/16 07:48 White Blood Count 5.6x10^3/uL (4.0-11.0) Red Blood Count 2.89x10^6/uL (3.50-5.40) Hemoglobin 8.7g/dL (12.0-15.5) Hematocrit 25.3% (36.0-47.0) Mean Corpuscular Volume 88fL (79-100) Mean Corpuscular Hemoglobin 30pg (25-35) Mean Corpuscular Hemoglobin Concent 34g/dL (31-37) Red Cell Distribution Width 16.6% (11.5-14.5) Platelet Count 239x10^3/uL (140-400) Neutrophils (%) (Auto) 86% (31-73) Lymphocytes (%) (Auto) 7% (24-48) Monocytes (%) (Auto) 6% (0-9) Eosinophils (%) (Auto) 1% (0-3) Basophils (%) (Auto) 1% (0-3) Neutrophils # (Auto) 4.8x10^3uL (1.8-7.7) Lymphocytes # (Auto) 0.4x10^3/uL (1.0-4.8) Monocytes # (Auto) 0.3x10^3/uL (0.0-1.1) Eosinophils # (Auto) 0.0x10^3/uL (0.0-0.7) Basophils # (Auto) 0.1x10^3/uL (0.0-0.2) Sodium Level 143mmol/L (136-145) Potassium Level 3.6mmol/L (3.5-5.1) Chloride Level 109mmol/L (98-107) Carbon Dioxide Level 24mmol/L (21-32) Anion Gap 10 (6-14) Blood Urea Nitrogen 6mg/dL (7-20) Creatinine 1.0mg/dL (0.6-1.0) Estimated GFR (Cockcroft-Gault) 55.8 Glucose Level 108mg/dL (70-99) Calcium Level 8.2mg/dL (8.5-10.1) Glucose (Fingerstick) 94mg/dL (70-99) Laboratory Tests Test 12/08/16 11:31 12/08/16 16:21 12/08/16 21:44 12/09/16 05:50 Glucose (Fingerstick) 116mg/dL (70-99) 115mg/dL (70-99) 136mg/dL (70-99) White Blood Count 5.6x10^3/uL (4.0-11.0) Red Blood Count 2.89x10^6/uL (3.50-5.40) Hemoglobin 8.7g/dL (12.0-15.5) Hematocrit 25.3% (36.0-47.0) Mean Corpuscular Volume 88fL (79-100) Mean Corpuscular Hemoglobin 30pg (25-35) Mean Corpuscular Hemoglobin Concent 34g/dL (31-37) Red Cell Distribution Width 16.6% (11.5-14.5) Platelet Count 239x10^3/uL (140-400) Neutrophils (%) (Auto) 86% (31-73) Lymphocytes (%) (Auto) 7% (24-48) Monocytes (%) (Auto) 6% (0-9) Eosinophils (%) (Auto) 1% (0-3) Basophils (%) (Auto) 1% (0-3) Neutrophils # (Auto) 4.8x10^3uL (1.8-7.7) Lymphocytes # (Auto) 0.4x10^3/uL (1.0-4.8) Monocytes # (Auto) 0.3x10^3/uL (0.0-1.1) Eosinophils # (Auto) 0.0x10^3/uL (0.0-0.7) Basophils # (Auto) 0.1x10^3/uL (0.0-0.2) Sodium Level 143mmol/L (136-145) Potassium Level 3.6mmol/L (3.5-5.1) Chloride Level 109mmol/L (98-107) Carbon Dioxide Level 24mmol/L (21-32) Anion Gap 10 (6-14) Blood Urea Nitrogen 6mg/dL (7-20) Creatinine 1.0mg/dL (0.6-1.0) Estimated GFR (Cockcroft-Gault) 55.8 Glucose Level 108mg/dL (70-99) Calcium Level 8.2mg/dL (8.5-10.1) Test 12/09/16 07:48 Glucose (Fingerstick) 94mg/dL (70-99) Medications Active Scripts Medications Dose Route/Sig Days Date Category Percocet 5-325 Mg Tablet (Oxycodone/Acetaminophen) 1 Each Tablet 1 Tab PO Q4HRS PRN 09/07/16 Reported Ventolin Hfa Inhaler (Albuterol Sulfate) 18 Gm Hfa.aer.ad 2 Puff INH Q4HRS 09/06/16 Reported Albuterol Sulfate Neb Soln (Albuterol Sulfate) 2.5 Mg/3 Ml Vial.neb 1 Vial NEB PRN Q4HRS 09/06/16 Reported Aspirin 325 Mg Tablet 325 Mg PO DAILY 09/06/16 Reported Levothyroxine Sodium 112 Mcg Tablet 112 Mcg PO DAILYAC 09/06/16 Reported Lisinopril-Hctz 20-25 Mg Tab (Lisinopril/Hydrochlorothiazide) 1 Each Tablet 2 Tab PO DAILY 12/13/14 Reported Feosol (Iron,Carbonyl) 45 Mg Tablet 325 Mg PO DAILY 12/13/14 Reported Glimepiride 4 Mg Tablet 1 Tab PO BID 12/13/14 Reported Atorvastatin Calcium 20 Mg Tablet 40 Mg PO HS 12/13/14 Reported Prozac (Fluoxetine Hcl) 10 Mg Capsule 80 Mg PO DAILYWBKFT 11/14/14 Reported Metformin Hcl 1,000 Mg Tablet 1 Tab PO BID 11/14/14 Reported Impression . 1. Dyspnea associated with cough due to pneumonia. Chest ct with LLL consolidation. 2. Suspected underlying chronic obstructive pulmonary disease with mild exacerbation. 3. History of breast cancer status post modified radical mastectomy on the left followed by chemo. She had axillary lymph node involvement. 4. Mild hyponatremia. 5. Anemia, probably secondary to chemo. improved Plan . 1. influenza screen.neg. 2. Noncontrast CT chest with LLL consolidation 3. Continue with present bronchodilators. 4. Follow Oncology recommendations. 5. BS empiric antibiotics. 6. off Lovenox for DVT prophylaxis.(anemia) 7. transfusion prn per PCP 8. Pulmonary status has improved. 9. could go home on PO antibiotics in am YAJAIRA HARVEY MD Dec 09, 2016 08:54
--- NOTE | 2016-12-09 09:26 | PDOC ---
Provider Note Provider Note DATE OF f/u: 12/09/2016 c/c: f/u of Invasive ductal carcinoma of the left breast diagnosed on 09/07/2016 status post left modified radical mastectomy on 09/20/2016. On adjuvant chemo. HISTORY OF PRESENT ILLNESS: The patient is a 65-year-old female who has never had a mammogram previously because of lack of insurance and she noticed redness in the left breast nipple area along with nipple inversion in 12/2015. She did not have medical insurance and hence she did not seek any further investigation and workup for this. She mentions that she was waiting to be eligible for Medicare on 12/01/2016 and she was planning to get this worked up at that time. She saw her primary care physician, Dr. Chantelle Ch in 08/2016. Dr. Ch also felt that she had a mass and she thought that it is best to proceed with further management of this suspected malignancy rather than waiting until 2016. She underwent an incisional biopsy of the left breast on 09/07/2016 and this revealed invasive ductal carcinoma, grade 2 with tumor invasion of the skin. She then underwent left modified radical mastectomy by Dr. Ramos Peres on 09/20/2016. Dr. Peres also noted evidence of axillary lymph node metastasis. Started adjuvant chemo with AC on 10/28/16. Tolerated well except for nausea, bone pains. She presented to the Emergency Room with severe shortness of breath. She relates that she had upper respiratory symptoms for 3 days, but shortness of breath became really bad.. She also now has a sharp chest pain in the middle of her chest, worse with deep breathing and cough. She does have a frequent cough, which is dry and exacerbated by deep breathing. Pain is 8/10. Denies any fevers or chills. No sick family members, but she continues to work 7 days a week. PAST MEDICAL HISTORY: Fibromyalgia, bronchial asthma, hyperlipidemia, depression, anxiety, muscle spasms, diabetes, peripheral neuropathy due to diabetes, anemia, hypothyroidism, and hypertension. REVIEW OF SYSTEMS: has cough, no CP, overall better PHYSICAL EXAMINATION: GENERAL APPEARANCE: The patient is a 65-year-old female who is in no acute cardiorespiratory distress. CHEST: Bilaterally symmetrical. HEART: S1, S2 normal. ABDOMEN: Soft, nontender. No hepatosplenomegaly. CENTRAL NERVOUS SYSTEM: No focal deficits. IMPRESSION AND PLAN: 1. Invasive ductal carcinoma of the left breast, grade 2 diagnosed on 09/07/2016 by an incisional biopsy, status post left modified radical mastectomy by Dr. Peres on 09/20/2016. Dr. Peres also noted metastasis to the axillary lymph node. ER positive 97.1%, WI positive 87.3%, Her 2 jacquie neg, Grade II. I recommended adjuvant chemotherapy with Adriamycin and Cytoxan followed by Taxol. then she would benefit from adjuvant Arimidex. Started chemo with AC on 10/28/16. s/p C3 on 11/26/16. Defer chemo till next week. 2. Anemia, worse at 6.4 on 12/07/16 - s/p 2 PRBC. Hb now 8.7 3. Fibromyalgia, management per primary physician. 4. s/p portacath by Dr Peres. 5. Echo 10/15/16 reveals EF of 60%.f/u echo 12/04/16 pending. 6. Peripheral neuropathy due to DM. 7. n/v due to chemo - cont compazine. 8. Dyspnea associated with cough due to pneumonia. Chest ct with LLL consolidation. Suspected underlying chronic obstructive pulmonary disease with mild exacerbation.. I d/w Dr Sorensen. Improving. RENU WHYTE MD Dec 09, 2016 09:26
--- NOTE | 2016-12-09 09:49 | PDOC ---
PROGRESS NOTES Chief Complaint Chief Complaint 1. Viral URI 2. Neutropenia 3. Anemia 4. DM 5. Hypertension 6. Hyperlipidemia 7. Depression 8. Prophylaxis 9. Breast CA History of Present Illness History of Present Illness Pt awake, alert, and talkative the AM for her evaluation. Pt sitting up in chair watching TV. Pt states that she is feeling "much better" but still having some SOB. Pt states that the Neosporin for her nose has really helped her nose bleeds from the NC O2. Pt states that she would like to go home as soon as tomorrow if at all able to. All questions and concerns were addressed and answered. Vitals Vitals Vital Signs Date Time Temp Pulse Resp B/P Pulse Ox O2 Delivery O2 Flow Rate FiO2 12/09/16 08:45 72 126/60 12/09/16 08:44 Nasal Cannula 2.0 12/09/16 07:32 99 12/09/16 07:32 98.1 17 98.1 Physical Exam General: Alert, Oriented X3, Cooperative Heart: Regular rate, Normal S1, Normal S2, No murmurs Lungs: Other (decrease bs, mild bilateral wheezes ) Abdomen: Normal bowel sounds, Soft, No tenderness Extremities: No clubbing, No cyanosis, No edema Skin: No rashes, No breakdown, No significant lesion Labs LABS Laboratory Tests Test 12/08/16 11:31 12/08/16 16:21 12/08/16 21:44 12/09/16 05:50 Glucose (Fingerstick) 116mg/dL (70-99) 115mg/dL (70-99) 136mg/dL (70-99) White Blood Count 5.6x10^3/uL (4.0-11.0) Red Blood Count 2.89x10^6/uL (3.50-5.40) Hemoglobin 8.7g/dL (12.0-15.5) Hematocrit 25.3% (36.0-47.0) Mean Corpuscular Volume 88fL (79-100) Mean Corpuscular Hemoglobin 30pg (25-35) Mean Corpuscular Hemoglobin Concent 34g/dL (31-37) Red Cell Distribution Width 16.6% (11.5-14.5) Platelet Count 239x10^3/uL (140-400) Neutrophils (%) (Auto) 86% (31-73) Lymphocytes (%) (Auto) 7% (24-48) Monocytes (%) (Auto) 6% (0-9) Eosinophils (%) (Auto) 1% (0-3) Basophils (%) (Auto) 1% (0-3) Neutrophils # (Auto) 4.8x10^3uL (1.8-7.7) Lymphocytes # (Auto) 0.4x10^3/uL (1.0-4.8) Monocytes # (Auto) 0.3x10^3/uL (0.0-1.1) Eosinophils # (Auto) 0.0x10^3/uL (0.0-0.7) Basophils # (Auto) 0.1x10^3/uL (0.0-0.2) Sodium Level 143mmol/L (136-145) Potassium Level 3.6mmol/L (3.5-5.1) Chloride Level 109mmol/L (98-107) Carbon Dioxide Level 24mmol/L (21-32) Anion Gap 10 (6-14) Blood Urea Nitrogen 6mg/dL (7-20) Creatinine 1.0mg/dL (0.6-1.0) Estimated GFR (Cockcroft-Gault) 55.8 Glucose Level 108mg/dL (70-99) Calcium Level 8.2mg/dL (8.5-10.1) Test 12/09/16 07:48 Glucose (Fingerstick) 94mg/dL (70-99) Review of Systems Review of Systems Pt complaint of fatigue Pt complaint of hunger Assessment and Plan Assessmemt and Plan Problems Medical Problems: (1) History of breast cancer Status: Acute (2) Shortness of breath Status: Acute (3) Tachypnea Status: Acute Assessment: Continue to monitor the patient per floor protocol Continue to monitor daily labs with Hgb Daily PTOT/ Evaluation with treatment DW RN Appreciate all subspecialty input and evaluation Probable switch IV meds to PO for possbile DC tomorrow Problems: Comment Review of Relevant I have reviewed the following items moise (where applicable) has been applied. Labs Laboratory Tests Test 12/07/16 12:33 12/07/16 16:19 12/07/16 20:33 12/08/16 04:30 Glucose (Fingerstick) 137mg/dL (70-99) 119mg/dL (70-99) 131mg/dL (70-99) White Blood Count 5.2x10^3/uL (4.0-11.0) Red Blood Count 2.74x10^6/uL (3.50-5.40) Hemoglobin 8.2g/dL (12.0-15.5) Hematocrit 24.3% (36.0-47.0) Mean Corpuscular Volume 89fL (79-100) Mean Corpuscular Hemoglobin 30pg (25-35) Mean Corpuscular Hemoglobin Concent 34g/dL (31-37) Red Cell Distribution Width 16.4% (11.5-14.5) Platelet Count 193x10^3/uL (140-400) Neutrophils (%) (Auto) 87% (31-73) Lymphocytes (%) (Auto) 6% (24-48) Monocytes (%) (Auto) 7% (0-9) Eosinophils (%) (Auto) 0% (0-3) Basophils (%) (Auto) 0% (0-3) Neutrophils # (Auto) 4.5x10^3uL (1.8-7.7) Lymphocytes # (Auto) 0.3x10^3/uL (1.0-4.8) Monocytes # (Auto) 0.4x10^3/uL (0.0-1.1) Eosinophils # (Auto) 0.0x10^3/uL (0.0-0.7) Basophils # (Auto) 0.0x10^3/uL (0.0-0.2) Sodium Level 139mmol/L (136-145) Potassium Level 3.6mmol/L (3.5-5.1) Chloride Level 107mmol/L (98-107) Carbon Dioxide Level 22mmol/L (21-32) Anion Gap 10 (6-14) Blood Urea Nitrogen 9mg/dL (7-20) Creatinine 1.3mg/dL (0.6-1.0) Estimated GFR (Cockcroft-Gault) 41.2 Glucose Level 111mg/dL (70-99) Calcium Level 7.5mg/dL (8.5-10.1) Vancomycin Level Trough 20.2mcg/mL (10.0-20.0) Vancomycin Last Dose Date Unknown Vancomycin Last Dose Time Unknown Test 12/08/16 08:23 12/08/16 11:31 12/08/16 16:21 12/08/16 21:44 Glucose (Fingerstick) 100mg/dL (70-99) 116mg/dL (70-99) 115mg/dL (70-99) 136mg/dL (70-99) Test 12/09/16 05:50 12/09/16 07:48 White Blood Count 5.6x10^3/uL (4.0-11.0) Red Blood Count 2.89x10^6/uL (3.50-5.40) Hemoglobin 8.7g/dL (12.0-15.5) Hematocrit 25.3% (36.0-47.0) Mean Corpuscular Volume 88fL (79-100) Mean Corpuscular Hemoglobin 30pg (25-35) Mean Corpuscular Hemoglobin Concent 34g/dL (31-37) Red Cell Distribution Width 16.6% (11.5-14.5) Platelet Count 239x10^3/uL (140-400) Neutrophils (%) (Auto) 86% (31-73) Lymphocytes (%) (Auto) 7% (24-48) Monocytes (%) (Auto) 6% (0-9) Eosinophils (%) (Auto) 1% (0-3) Basophils (%) (Auto) 1% (0-3) Neutrophils # (Auto) 4.8x10^3uL (1.8-7.7) Lymphocytes # (Auto) 0.4x10^3/uL (1.0-4.8) Monocytes # (Auto) 0.3x10^3/uL (0.0-1.1) Eosinophils # (Auto) 0.0x10^3/uL (0.0-0.7) Basophils # (Auto) 0.1x10^3/uL (0.0-0.2) Sodium Level 143mmol/L (136-145) Potassium Level 3.6mmol/L (3.5-5.1) Chloride Level 109mmol/L (98-107) Carbon Dioxide Level 24mmol/L (21-32) Anion Gap 10 (6-14) Blood Urea Nitrogen 6mg/dL (7-20) Creatinine 1.0mg/dL (0.6-1.0) Estimated GFR (Cockcroft-Gault) 55.8 Glucose Level 108mg/dL (70-99) Calcium Level 8.2mg/dL (8.5-10.1) Glucose (Fingerstick) 94mg/dL (70-99) Laboratory Tests Test 12/08/16 11:31 12/08/16 16:21 12/08/16 21:44 12/09/16 05:50 Glucose (Fingerstick) 116mg/dL (70-99) 115mg/dL (70-99) 136mg/dL (70-99) White Blood Count 5.6x10^3/uL (4.0-11.0) Red Blood Count 2.89x10^6/uL (3.50-5.40) Hemoglobin 8.7g/dL (12.0-15.5) Hematocrit 25.3% (36.0-47.0) Mean Corpuscular Volume 88fL (79-100) Mean Corpuscular Hemoglobin 30pg (25-35) Mean Corpuscular Hemoglobin Concent 34g/dL (31-37) Red Cell Distribution Width 16.6% (11.5-14.5) Platelet Count 239x10^3/uL (140-400) Neutrophils (%) (Auto) 86% (31-73) Lymphocytes (%) (Auto) 7% (24-48) Monocytes (%) (Auto) 6% (0-9) Eosinophils (%) (Auto) 1% (0-3) Basophils (%) (Auto) 1% (0-3) Neutrophils # (Auto) 4.8x10^3uL (1.8-7.7) Lymphocytes # (Auto) 0.4x10^3/uL (1.0-4.8) Monocytes # (Auto) 0.3x10^3/uL (0.0-1.1) Eosinophils # (Auto) 0.0x10^3/uL (0.0-0.7) Basophils # (Auto) 0.1x10^3/uL (0.0-0.2) Sodium Level 143mmol/L (136-145) Potassium Level 3.6mmol/L (3.5-5.1) Chloride Level 109mmol/L (98-107) Carbon Dioxide Level 24mmol/L (21-32) Anion Gap 10 (6-14) Blood Urea Nitrogen 6mg/dL (7-20) Creatinine 1.0mg/dL (0.6-1.0) Estimated GFR (Cockcroft-Gault) 55.8 Glucose Level 108mg/dL (70-99) Calcium Level 8.2mg/dL (8.5-10.1) Test 12/09/16 07:48 Glucose (Fingerstick) 94mg/dL (70-99) Microbiology 12/04/16 Blood Culture - Preliminary, Resulted NO GROWTH AFTER 3 DAYS Medications Current Medications Albuterol/ Ipratropium (Duoneb) 3 ml 1X ONCE NEB Last administered on 16:31; Start 12/04/16 at 15:15; Stop 12/04/16 at 15:29; Status DC Ondansetron HCl (Zofran) 4 mg PRN Q8HRS PRN IV NAUSEA/VOMITING; Start 12/04/16 at 18:30; Stop 12/05/16 at 18:29; Status DC Morphine Sulfate 2 mg PRN Q2HR PRN IV PAIN; Start 12/04/16 at 18:30; Stop at 21:49; Status DC Albuterol Sulfate (Ventolin Neb Soln) 2.5 mg RTQID NEB Last administered on 12/09 07:25; Start 12/05/16 at 08:00 Acetaminophen/ Codeine Phosphate 1 tab 1 tab PRN Q4HRS PRN PO cough Last administered on 12/08/16 06:32; Start 12/04/16 at 21:45 Potassium Chloride 20 meq/ Sodium Chloride 1,010 ml @ 75 mls/hr [id number] IV ; Start 12/04/16 at 21:45; Status UNV Potassium Chloride/Sodium Chloride (KCl 20 Meq-0.45% Nacl) 1,000 ml @ 75 mls/ hr [id number] IV Last administered on 12/08/16 16:38; Start 12/04/16 at 22:00 Aspirin (Eva Aspirin) 325 mg DAILY PO Last administered on 12/09/16 08:44; Start 12/05/16 at 09:00 Atorvastatin Calcium (Lipitor) 40 mg QHS PO Last administered on 12/08/16 21:05 ; Start 12/04/16 at 22:30 Fluoxetine HCl (Prozac) 80 mg DAILYWBKFT PO Last administered on 12/09/16 08:44 ; Start 12/05/16 at 08:00 Levothyroxine Sodium (Synthroid) 112 mcg DAILY07 PO Last administered on 06:29; Start 12/05/16 at 07:00 Metformin HCl (Glucophage) 1,000 mg BIDWMEALS PO Last administered on 12/09/16 08:46; Start 12/05/16 at 08:00 Oxycodone/ Acetaminophen (Percocet 5/325) 1 tab PRN Q4HRS PRN PO SEVERE PAIN Last administered on 12/09/16 08:44; Start 12/04/16 at 22:00 Glimepiride (Amaryl) 4 mg BIDWMEALS PO Last administered on 12/09/16 08:44; Start 12/05/16 at 08:00 Ferrous Sulfate (Feosol) 325 mg DAILYWBKFT PO Last administered on 12/05/16 08: 09; Start 12/05/16 at 08:00; Stop 12/05/16 at 17:42; Status DC Lisinopril (Prinivil) 40 mg DAILY PO Last administered on 12/09/16 08:45; Start 12/05/16 at 09:00 Oxymetazoline HCl (Afrin) 2 spray BID NS Last administered on 12/09/16 08:48; Start 12/04/16 at 23:00 Hydrochlorothiazide (Hydrodiuril) 50 mg DAILY PO Last administered on 12/09/16 08:45; Start 12/05/16 at 09:00 Insulin Aspart (Novolog) 0-5 UNITS TIDWMEALS SQ Last administered on 12/06/16 17:00; Start 12/05/16 at 08:00 Dextrose 12.5 gm PRN Q15MIN PRN IV SEE COMMENTS; Start 12/04/16 at 22:15 Enoxaparin Sodium (Lovenox 40mg Syringe) 40 mg Q24H SQ Last administered on 12/07 09:00; Start 12/05/16 at 09:00; Stop 12/07/16 at 09:25; Status DC Pantoprazole Sodium (Protonix) 40 mg DAILYAC PO Last administered on 12/09/16 06:29; Start 12/05/16 at 07:30 Ferrous Sulfate (Feosol) 325 mg QHS PO Last administered on 12/08/16 21:06; Start 12/05/16 at 21:00 Budesonide 0.5 mg 0.5 mg RTBID NEB Last administered on 12/09/16 07:25; Start 12/06/16 at 20:00 Piperacillin Sod/ Tazobactam Sod 4.5 gm/Sodium Chloride 100 ml @ 200 mls/hr Q6HRS IV Last administered on 12/09/16 05:40; Start 12/06/16 at 18:00 Vancomycin HCl 2 gm/Sodium Chloride 500 ml @ 250 mls/hr Q24H IV Last administered on 12/06/16 16:43; Start 12/06/16 at 17:00; Stop 12/07/16 at 13:07; Status DC Vancomycin HCl/ Sodium Chloride (Iv Sodium Chloride 0.9% 250ml) 250 ml @ 167 mls/hr Q12H IV Last administered on 12/07/16 16:54; Start 12/07/16 at 05:00; Stop 12/08/16 at 05:13; Status DC Vancomycin HCl 1 each 1X ONCE MC Last administered on 12/08/16 04:30; Start at 04:30; Stop 12/08/16 at 04:31; Status DC Vancomycin HCl 1 each 1 each PRN DAILY PRN MC SEE COMMENTS Last administered on 12/08/16 05:18; Start 12/06/16 at 16:30 Vancomycin HCl/ Sodium Chloride (Iv Sodium Chloride 0.9% 250ml) 250 ml @ 250 mls/hr Q12H IV Last administered on 12/09/16 06:29; Start 12/08/16 at 06:00 Ondansetron HCl (Zofran) 4 mg 1X ONCE IV ; Start 12/09/16 at 08:30; Stop at 08:31; Status DC Neomycin/ Polymyxin/ Bacitracin (Triple Antibiotic Ointment) 1 pkt [id number] TP ; Start 12/09/16 at 09:00 Active Scripts Active Reported Percocet 5-325 Mg Tablet (Oxycodone/Acetaminophen) 1 Each Tablet 1 Tab PO Q4HRS PRN Ventolin Hfa Inhaler (Albuterol Sulfate) 18 Gm Hfa.aer.ad 2 Puff INH Q4HRS Albuterol Sulfate Neb Soln (Albuterol Sulfate) 2.5 Mg/3 Ml Vial.neb 1 Vial NEB PRN Q4HRS Aspirin 325 Mg Tablet 325 Mg PO DAILY Levothyroxine Sodium 112 Mcg Tablet 112 Mcg PO DAILYAC Lisinopril-Hctz 20-25 Mg Tab (Lisinopril/Hydrochlorothiazide) 1 Each Tablet 2 Tab PO DAILY Feosol (Iron,Carbonyl) 45 Mg Tablet 325 Mg PO DAILY Glimepiride 4 Mg Tablet 1 Tab PO BID Atorvastatin Calcium 20 Mg Tablet 40 Mg PO HS Prozac (Fluoxetine Hcl) 10 Mg Capsule 80 Mg PO DAILYWBKFT Metformin Hcl 1,000 Mg Tablet 1 Tab PO BID Vitals/I & O Vital Sign - Last 24 Hours 12/08/16 12/08/16 12/08/16 12/08/16 10:39 11:25 14:11 15:44 Temp 97.5 97.9 97.5 97.9 Pulse 76 82 Resp 20 20 20 B/P 119/46 140/48 Pulse Ox 97 97 100 O2 Delivery Nasal Cannula Room Air Room Air Nasal Cannula O2 Flow Rate 2.0 2.0 12/08/16 12/08/16 12/08/16 12/08/16 16:13 18:00 19:00 19:59 Temp 98.2 98.2 Pulse 72 Resp 20 18 B/P 111/53 Pulse Ox 100 100 95 O2 Delivery Nasal Cannula Nasal Cannula Nasal Cannula O2 Flow Rate 2.0 2.0 2.0 12/08/16 12/08/16 12/08/16 12/08/16 20:00 20:02 22:28 23:00 Temp 97.7 97.7 Pulse 78 Resp 20 20 B/P 112/62 Pulse Ox 95 95 98 O2 Delivery Nasal Cannula Nasal Cannula Nasal Cannula O2 Flow Rate 2.0 2.0 2.0 12/09/16 12/09/16 12/09/16 12/09/16 03:00 03:02 04:02 07:28 Temp 97.8 97.8 Pulse 72 Resp 18 20 20 B/P 117/49 Pulse Ox 100 98 98 99 O2 Delivery Nasal Cannula Nasal Cannula Nasal Cannula O2 Flow Rate 2.0 2.0 2.0 12/09/16 12/09/16 12/09/16 12/09/16 07:32 07:32 08:44 08:45 Temp 98.1 98.1 Pulse 72 72 Resp 17 B/P 126/60 126/60 Pulse Ox 99 99 O2 Delivery Room Air Nasal Cannula Nasal Cannula O2 Flow Rate 2.0 2.0 Intake and Output 12/08/16 12/08/16 12/09/16 15:00 23:00 07:00 Intake Total 120 ml 60 ml 480 ml Balance 120 ml 60 ml 480 ml JENI MCDANIEL III DO Dec 09, 2016 09:49
[2016-12-09 10:17] VITALS: BP 130/65
[2016-12-09] MEDS: NEOMY/BACITR/POLYMYXIN OINT PACKET. TP SCH ×3 (11:40→20:13)
[2016-12-09] MEDS: POTASSIUM CL 20MEQ-0.45% NACL 1,000 ML IV SCH (11:46)
[2016-12-09 15:05] VITALS: BP 126/57
[2016-12-09 19:00] VITALS: BP 132/62
[2016-12-09] MEDS: ATORVASTATIN CALCIUM 40 MG TABLET. PO SCH (20:11)
[2016-12-09] MEDS: FERROUS SULFATE 325 MG TABLET PO SCH (20:11)
[2016-12-09 23:00] VITALS: BP 116/55
[2016-12-10] MEDS: OXYCODONE/APAP 5/325 TABLET. PO PRN ×3 (00:23→12:36)
[2016-12-10] MEDS: PIPERACILLIN/TAZOBACTAM 4.5 GM in IV NORMAL SALINE 100ML 100 ML IV SCH ×3 (00:24→12:37)
[2016-12-10] MEDS: POTASSIUM CL 20MEQ-0.45% NACL 1,000 ML IV SCH (06:17)
[2016-12-10 07:00] VITALS: BP 139/63
[2016-12-10 07:05] LABS: CALCIUM 8.5 mg/dL (8.5-10.1); GFR 55.6; POTASSIUM 3.6 mmol/L (3.5-5.1)
[2016-12-10] MEDS: VANCOMYCIN 1 GM in IV NORMAL SALINE 250ML 250 ML IV SCH (07:06)
[2016-12-10] MEDS: LEVOTHYROXINE 112 MCG TABLET PO SCH (07:06)
[2016-12-10 07:49] LABS: BASO # 0.1 x10^3/uL (0.0-0.2); BASO % 1 % (0-3); EOS % 1 % (0-3); HEMATOCRIT 25.5 % (36.0-47.0); HEMOGLOBIN 8.5 g/dL (12.0-15.5); LYMPH # 0.6 x10^3/uL (1.0-4.8); LYMPH % 9 % (24-48); MEAN CORPUSCULAR HEMOGLOBIN 30 pg (25-35); MEAN CORPUSCULAR HGB CONC 33 g/dL (31-37); MEAN CORPUSCULAR VOLUME 90 fL (79-100); MONO % 7 % (0-9); NEUT % 82 % (31-73); PLATELET COUNT 265 x10^3/uL (140-400); RED BLOOD COUNT 2.85 x10^6/uL (3.50-5.40); RED CELL DISTRIBUTION WIDTH 17.2 % (11.5-14.5)
[2016-12-10] MEDS: ALBUTEROL SULFATE 2.5 MG/3 ML NEBU. NEB SCH (07:53)
[2016-12-10] MEDS: BUDESONIDE 0.5 MG/2 ML NEBU NEB SCH (07:53)
[2016-12-10] MEDS: INSULIN ASPART 300 UNITS/3 ML INSULN.PEN SQ SCH ×2 (08:00→12:00)
--- NOTE | 2016-12-10 08:30 | PDOC ---
Provider Note Provider Note DATE OF f/u: 12/10/2016 c/c: f/u of Invasive ductal carcinoma of the left breast diagnosed on 09/07/2016 status post left modified radical mastectomy on 09/20/2016. On adjuvant chemo. HISTORY OF PRESENT ILLNESS: The patient is a 65-year-old female who has never had a mammogram previously because of lack of insurance and she noticed redness in the left breast nipple area along with nipple inversion in 12/2015. She did not have medical insurance and hence she did not seek any further investigation and workup for this. She mentions that she was waiting to be eligible for Medicare on 12/01/2016 and she was planning to get this worked up at that time. She saw her primary care physician, Dr. Chantelle Ch in 08/2016. Dr. Ch also felt that she had a mass and she thought that it is best to proceed with further management of this suspected malignancy rather than waiting until 2016. She underwent an incisional biopsy of the left breast on 09/07/2016 and this revealed invasive ductal carcinoma, grade 2 with tumor invasion of the skin. She then underwent left modified radical mastectomy by Dr. Ramos Peres on 09/20/2016. Dr. Peres also noted evidence of axillary lymph node metastasis. Started adjuvant chemo with AC on 10/28/16. Tolerated well except for nausea, bone pains. She presented to the Emergency Room with severe shortness of breath. She relates that she had upper respiratory symptoms for 3 days, but shortness of breath became really bad.. She also now has a sharp chest pain in the middle of her chest, worse with deep breathing and cough. She does have a frequent cough, which is dry and exacerbated by deep breathing. Pain is 8/10. Denies any fevers or chills. No sick family members, but she continues to work 7 days a week. PAST MEDICAL HISTORY: Fibromyalgia, bronchial asthma, hyperlipidemia, depression, anxiety, muscle spasms, diabetes, peripheral neuropathy due to diabetes, anemia, hypothyroidism, and hypertension. REVIEW OF SYSTEMS: has cough, no fever, overall better PHYSICAL EXAMINATION: GENERAL APPEARANCE: The patient is a 65-year-old female who is in no acute cardiorespiratory distress. CHEST: Bilaterally symmetrical. HEART: S1, S2 normal. ABDOMEN: Soft, nontender. No hepatosplenomegaly. CENTRAL NERVOUS SYSTEM: No focal deficits. IMPRESSION AND PLAN: 1. Invasive ductal carcinoma of the left breast, grade 2 diagnosed on 09/07/2016 by an incisional biopsy, status post left modified radical mastectomy by Dr. Peres on 09/20/2016. Dr. Peres also noted metastasis to the axillary lymph node. ER positive 97.1%, SC positive 87.3%, Her 2 jacquie neg, Grade II. I recommended adjuvant chemotherapy with Adriamycin and Cytoxan followed by Taxol. then she would benefit from adjuvant Arimidex. Started chemo with AC on 10/28/16. s/p C3 on 11/26/16. Defer chemo till next week. fu with me next week 2. Anemia, worse at 6.4 on 12/07/16 - s/p 2 PRBC. Hb now 8.5 3. Fibromyalgia, management per primary physician. 4. s/p portacath by Dr Peres. 5. Echo 10/15/16 reveals EF of 60%.f/u echo 12/04/16 pending. 6. Peripheral neuropathy due to DM. 7. n/v due to chemo - cont compazine. 8. Dyspnea associated with cough due to pneumonia. Chest ct with LLL consolidation. Suspected underlying chronic obstructive pulmonary disease with mild exacerbation.. I d/w Dr Sorensen. Improving. RENU WHYTE MD Dec 10, 2016 08:30
--- NOTE | 2016-12-10 08:51 | PDOC ---
PULMONARY PROGRESS NOTES Subjective improving cough Vitals Vital Signs Date Time Temp Pulse Resp B/P Pulse Ox O2 Delivery O2 Flow Rate FiO2 12/10/16 07:53 97 Room Air 12/10/16 07:09 20 12/09/16 23:00 98.0 77 116/55 98.0 12/09/16 19:50 2.0 General: Alert, No acute distress Lungs: Other (decrease bs, mild bilateral wheezes ) Cardiovascular: S1 Abdomen: Soft Neuro Exam: Alert Extremities: No Edema Skin: Warm Labs Laboratory Tests Test 12/08/16 11:31 12/08/16 16:21 12/08/16 21:44 12/09/16 05:50 Glucose (Fingerstick) 116mg/dL (70-99) 115mg/dL (70-99) 136mg/dL (70-99) White Blood Count 5.6x10^3/uL (4.0-11.0) Red Blood Count 2.89x10^6/uL (3.50-5.40) Hemoglobin 8.7g/dL (12.0-15.5) Hematocrit 25.3% (36.0-47.0) Mean Corpuscular Volume 88fL (79-100) Mean Corpuscular Hemoglobin 30pg (25-35) Mean Corpuscular Hemoglobin Concent 34g/dL (31-37) Red Cell Distribution Width 16.6% (11.5-14.5) Platelet Count 239x10^3/uL (140-400) Neutrophils (%) (Auto) 86% (31-73) Lymphocytes (%) (Auto) 7% (24-48) Monocytes (%) (Auto) 6% (0-9) Eosinophils (%) (Auto) 1% (0-3) Basophils (%) (Auto) 1% (0-3) Neutrophils # (Auto) 4.8x10^3uL (1.8-7.7) Lymphocytes # (Auto) 0.4x10^3/uL (1.0-4.8) Monocytes # (Auto) 0.3x10^3/uL (0.0-1.1) Eosinophils # (Auto) 0.0x10^3/uL (0.0-0.7) Basophils # (Auto) 0.1x10^3/uL (0.0-0.2) Sodium Level 143mmol/L (136-145) Potassium Level 3.6mmol/L (3.5-5.1) Chloride Level 109mmol/L (98-107) Carbon Dioxide Level 24mmol/L (21-32) Anion Gap 10 (6-14) Blood Urea Nitrogen 6mg/dL (7-20) Creatinine 1.0mg/dL (0.6-1.0) Estimated GFR (Cockcroft-Gault) 55.8 Glucose Level 108mg/dL (70-99) Calcium Level 8.2mg/dL (8.5-10.1) Test 12/09/16 07:48 12/09/16 11:20 12/09/16 16:54 12/09/16 20:32 Glucose (Fingerstick) 94mg/dL (70-99) 131mg/dL (70-99) 121mg/dL (70-99) 152mg/dL (70-99) Test 12/10/16 05:50 White Blood Count 6.0x10^3/uL (4.0-11.0) Red Blood Count 2.85x10^6/uL (3.50-5.40) Hemoglobin 8.5g/dL (12.0-15.5) Hematocrit 25.5% (36.0-47.0) Mean Corpuscular Volume 90fL (79-100) Mean Corpuscular Hemoglobin 30pg (25-35) Mean Corpuscular Hemoglobin Concent 33g/dL (31-37) Red Cell Distribution Width 17.2% (11.5-14.5) Platelet Count 265x10^3/uL (140-400) Neutrophils (%) (Auto) 82% (31-73) Lymphocytes (%) (Auto) 9% (24-48) Monocytes (%) (Auto) 7% (0-9) Eosinophils (%) (Auto) 1% (0-3) Basophils (%) (Auto) 1% (0-3) Neutrophils # (Auto) 4.9x10^3uL (1.8-7.7) Lymphocytes # (Auto) 0.6x10^3/uL (1.0-4.8) Monocytes # (Auto) 0.4x10^3/uL (0.0-1.1) Eosinophils # (Auto) 0.1x10^3/uL (0.0-0.7) Basophils # (Auto) 0.1x10^3/uL (0.0-0.2) Sodium Level 142mmol/L (136-145) Potassium Level 3.6mmol/L (3.5-5.1) Chloride Level 109mmol/L (98-107) Carbon Dioxide Level 24mmol/L (21-32) Anion Gap 9 (6-14) Blood Urea Nitrogen 3mg/dL (7-20) Creatinine 1.0mg/dL (0.6-1.0) Estimated GFR (Cockcroft-Gault) 55.6 Glucose Level 89mg/dL (70-99) Calcium Level 8.5mg/dL (8.5-10.1) Laboratory Tests Test 12/09/16 11:20 12/09/16 16:54 12/09/16 20:32 12/10/16 05:50 Glucose (Fingerstick) 131mg/dL (70-99) 121mg/dL (70-99) 152mg/dL (70-99) White Blood Count 6.0x10^3/uL (4.0-11.0) Red Blood Count 2.85x10^6/uL (3.50-5.40) Hemoglobin 8.5g/dL (12.0-15.5) Hematocrit 25.5% (36.0-47.0) Mean Corpuscular Volume 90fL (79-100) Mean Corpuscular Hemoglobin 30pg (25-35) Mean Corpuscular Hemoglobin Concent 33g/dL (31-37) Red Cell Distribution Width 17.2% (11.5-14.5) Platelet Count 265x10^3/uL (140-400) Neutrophils (%) (Auto) 82% (31-73) Lymphocytes (%) (Auto) 9% (24-48) Monocytes (%) (Auto) 7% (0-9) Eosinophils (%) (Auto) 1% (0-3) Basophils (%) (Auto) 1% (0-3) Neutrophils # (Auto) 4.9x10^3uL (1.8-7.7) Lymphocytes # (Auto) 0.6x10^3/uL (1.0-4.8) Monocytes # (Auto) 0.4x10^3/uL (0.0-1.1) Eosinophils # (Auto) 0.1x10^3/uL (0.0-0.7) Basophils # (Auto) 0.1x10^3/uL (0.0-0.2) Sodium Level 142mmol/L (136-145) Potassium Level 3.6mmol/L (3.5-5.1) Chloride Level 109mmol/L (98-107) Carbon Dioxide Level 24mmol/L (21-32) Anion Gap 9 (6-14) Blood Urea Nitrogen 3mg/dL (7-20) Creatinine 1.0mg/dL (0.6-1.0) Estimated GFR (Cockcroft-Gault) 55.6 Glucose Level 89mg/dL (70-99) Calcium Level 8.5mg/dL (8.5-10.1) Medications Active Scripts Medications Dose Route/Sig Days Date Category Percocet 5-325 Mg Tablet (Oxycodone/Acetaminophen) 1 Each Tablet 1 Tab PO Q4HRS PRN 09/07/16 Reported Ventolin Hfa Inhaler (Albuterol Sulfate) 18 Gm Hfa.aer.ad 2 Puff INH Q4HRS 09/06/16 Reported Albuterol Sulfate Neb Soln (Albuterol Sulfate) 2.5 Mg/3 Ml Vial.neb 1 Vial NEB PRN Q4HRS 09/06/16 Reported Aspirin 325 Mg Tablet 325 Mg PO DAILY 09/06/16 Reported Levothyroxine Sodium 112 Mcg Tablet 112 Mcg PO DAILYAC 09/06/16 Reported Lisinopril-Hctz 20-25 Mg Tab (Lisinopril/Hydrochlorothiazide) 1 Each Tablet 2 Tab PO DAILY 12/13/14 Reported Feosol (Iron,Carbonyl) 45 Mg Tablet 325 Mg PO DAILY 12/13/14 Reported Glimepiride 4 Mg Tablet 1 Tab PO BID 12/13/14 Reported Atorvastatin Calcium 20 Mg Tablet 40 Mg PO HS 12/13/14 Reported Prozac (Fluoxetine Hcl) 10 Mg Capsule 80 Mg PO DAILYWBKFT 11/14/14 Reported Metformin Hcl 1,000 Mg Tablet 1 Tab PO BID 11/14/14 Reported Impression . 1. Dyspnea associated with cough due to pneumonia. Chest ct with LLL consolidation. 2. Suspected underlying chronic obstructive pulmonary disease with mild exacerbation. 3. History of breast cancer status post modified radical mastectomy on the left followed by chemo. She had axillary lymph node involvement. 4. Mild hyponatremia. 5. Anemia, probably secondary to chemo. improved Plan . 1. influenza screen.neg. 2. Noncontrast CT chest with LLL consolidation 3. Continue with present bronchodilators. 4. Follow Oncology recommendations. 5. BS empiric antibiotics. 6. off Lovenox for DVT prophylaxis.(anemia) 7. transfusion prn per PCP 8. Pulmonary status has improved. 9. could go home on PO antibiotics YAJAIRA HARVEY MD Dec 10, 2016 08:51
[2016-12-10] MEDS: ASPIRIN 325 MG TABLET PO SCH (09:21)
[2016-12-10] MEDS: FLUOXETINE HCL 20 MG CAPSULE PO SCH (09:21)
[2016-12-10] MEDS: PANTOPRAZOLE 40 MG TABLET. PO SCH (09:22)
[2016-12-10] MEDS: NEOMY/BACITR/POLYMYXIN OINT PACKET. TP SCH (09:22)
[2016-12-10] MEDS: LISINOPRIL 40 MG TABLET. PO SCH (09:22)
[2016-12-10] MEDS: GLIMEPIRIDE 2 MG TABLET PO SCH (09:22)
[2016-12-10] MEDS: METFORMIN 1,000 MG TABLET PO SCH (09:22)
[2016-12-10] MEDS: HYDROCHLOROTHIAZIDE 25 MG TABLET PO SCH (09:22)
[2016-12-10] MEDS: OXYMETAZOLINE 0.05% NASAL SPRAY 30ML BOTTLE. NS SCH (09:25)
[2016-12-10 11:00] VITALS: BP 136/68
[2016-12-10] MEDS ORDERED: DOXY100C2 PO (13:09)
[2016-12-10] MEDS ORDERED: PRED-220 PO (13:09)
[2016-12-10] MEDS ORDERED: OXYC-323 PO (13:09)
[2016-12-10] MEDS ORDERED: HEPARIN PF 500 UNIT/5 ML DISP.SYRIN. IV ONE (14:00)
== END 2016-12-10 14:10 | disposition home or self-care (01) | DRG 865 ==
LOC: ER 17:38 → 5 SOUTH 17:51 → OBSVTOIN 12-05 16:10
PROVIDERS: ADMIT Internal Medicine Hematology & Oncology; ATTEND Internal Medicine Hematology & Oncology
PROC: 30233N1 Transfusion of Nonautologous Red Blood Cells into Peripheral Vein, Percutaneous Approach (ICD-10-PCS; principal; 2016-12-07)
DX: B34.9 Viral infection, unspecified (principal); J69.0 Pneumonitis due to inhalation of food and vomit; R65.10 Systemic inflammatory response syndrome (SIRS) of non-infectious origin without acute organ dysfunction; E44.1 Mild protein-calorie malnutrition; E87.1 Hypo-osmolality and hyponatremia; D64.81 Anemia due to antineoplastic chemotherapy; D70.9 Neutropenia, unspecified; E03.9 Hypothyroidism, unspecified; E11.42 Type 2 diabetes mellitus with diabetic polyneuropathy; E78.00 Pure hypercholesterolemia, unspecified; E78.5 Hyperlipidemia, unspecified; F32.9 Major depressive disorder, single episode, unspecified; I10 Essential (primary) hypertension; Z96.651 Presence of right artificial knee joint; J06.9 Acute upper respiratory infection, unspecified; J45.909 Unspecified asthma, uncomplicated; M79.7 Fibromyalgia; T45.1X5A Adverse effect of antineoplastic and immunosuppressive drugs, initial encounter; Z80.3 Family history of malignant neoplasm of breast; Z83.3 Family history of diabetes mellitus; Z85.3 Personal history of malignant neoplasm of breast; Z87.891 Personal history of nicotine dependence; Z90.12 Acquired absence of left breast and nipple; Z90.710 Acquired absence of both cervix and uterus; Z68.30 Body mass index [BMI] 30.0-30.9, adult
CPT/HCPCS: 36415; 71010; 80048; 80076; 82947; 83690; 83880; 84484; 85007; 85027; 87040; 93005; 94250; 94640; 99285; J1650; J1815; J7620; 71250; 80202; 86850; 86900; 86901; 86920; 87324; 87804; 94760; G0378; G0379; J2543; J3370; J7040; J7050; P9016; J7030

== ENCOUNTER → 2017-01-10 | Outpatient (CLI) | payer MEDICARE ==
[~2017-01-10] MED LIST changes: +DOXY100C2 PO; +PRED-220 PO
--- NOTE | 2017-01-10 13:37 | RAD ---
Clinical Indication: Right lower extremity swelling Technique: Study is dated January 10, 2017. Grayscale, color flow and spectral waveform analysis was performed of the right lower extremity with and without compression. Findings: There is normal compressibility of all visualized vein segments. No evidence of DVT is present on grayscale or color images. There is normal phasicity of waveform. There is normal augmentation. Impression: No evidence of deep vein thrombosis.
== END | disposition home or self-care (01) ==
LOC: US 09:46
PROVIDERS: ATTEND Internal Medicine Hematology & Oncology
DX: M79.89 Other specified soft tissue disorders (principal)
CPT/HCPCS: 93971

== ENCOUNTER → 2017-02-07 | Outpatient (CLI) | payer MEDICARE ==
--- NOTE | 2017-02-07 16:12 | RAD ---
Right lower extremity venous duplex study 02/07/2017 Clinical History: Right leg pain and swelling. Technique: Using a combination of real time ultrasound imaging and color-flow and pulse Doppler imaging techniques along with graded compression and augmentation, duplex evaluation of the deep venous system of the right lower extremity was performed. Multiple images were obtained. Findings: There is no sonographic evidence of deep venous thrombosis involving the visualized deep venous structures of the right lower extremity. Impression: Negative study.
== END | disposition home or self-care (01) ==
LOC: US 10:07
PROVIDERS: ATTEND Internal Medicine Hematology & Oncology
DX: C50.112 Malignant neoplasm of central portion of left female breast (principal); M79.604 Pain in right leg; M79.89 Other specified soft tissue disorders
CPT/HCPCS: 93971

== ENCOUNTER → 2017-02-22 | Outpatient (CLI) | payer MEDICARE, OTHER ==
--- NOTE | 2017-02-22 10:04 | KCIC ---
EXAM: Bone densitometry. HISTORY: Postmenopausal female presents for osteoporosis screening. FINDINGS: BMD: (g/cm2) - Total left Hip: 0.898 T-Score: - Total left Hip: 0.3 Z-Score: - Total left Hip: 1.6 World Health Organization criteria for BMD interpretation classify patients as Normal (T-score at or above -1.0), Osteopenic (T-score between -1.0 and -2.5), or Osteoporotic (T-score at or below -2.5). IMPRESSION: Normal bone mineral density measured at the left hip. Electronically signed by: Rani Cherry (Feb 22, 2017 10:02:36)
--- NOTE | 2017-02-22 10:05 | KCIC ---
EXAM: Bone densitometry. HISTORY: Postmenopausal female presents for osteoporosis screening. FINDINGS: BMD: (g/cm2) - right forearm: 0.526 T-Score: - right forearm: -0.7 Z-Score: - right forearm: 1.0 World Health Organization criteria for BMD interpretation classify patients as Normal (T-score at or above -1.0), Osteopenic (T-score between -1.0 and -2.5), or Osteoporotic (T-score at or below -2.5). IMPRESSION: Normal bone mineral density measured at the right forearm. Electronically signed by: Rani Cherry (Feb 22, 2017 10:04:02)
== END | disposition home or self-care (01) ==
LOC: KCIC DEXA 08:18
PROVIDERS: ATTEND Internal Medicine Hematology & Oncology
DX: Z78.0 Asymptomatic menopausal state (principal); C50.919 Malignant neoplasm of unspecified site of unspecified female breast
CPT/HCPCS: 77080; 77081

== ENCOUNTER → 2017-03-01 | Outpatient (CLI) | payer MEDICARE, OTHER ==
[~2017-03-01] MED LIST changes: +FURO40TA4 PO; +GABA-586 PO; +METF-620 PO; -METF10002 PO
[2017-03-01 13:37] LABS: BASO # 0.1 x10^3/uL (0.0-0.2); BASO % 1 % (0-3); EOS % 1 % (0-3); HEMATOCRIT 29.4 % (36.0-47.0); HEMOGLOBIN 10.4 g/dL (12.0-15.5); LYMPH # 1.9 x10^3/uL (1.0-4.8); LYMPH % 19 % (24-48); MEAN CORPUSCULAR HEMOGLOBIN 34 pg (25-35); MEAN CORPUSCULAR HGB CONC 35 g/dL (31-37); MEAN CORPUSCULAR VOLUME 97 fL (79-100); MONO % 8 % (0-9); NEUT % 72 % (31-73); PLATELET COUNT 286 x10^3/uL (140-400); RED BLOOD COUNT 3.04 x10^6/uL (3.50-5.40); RED CELL DISTRIBUTION WIDTH 16.7 % (11.5-14.5)
[2017-03-01 13:52] LABS: ALBUMIN 3.3 g/dL (3.4-5.0); CALCIUM 9.2 mg/dL (8.5-10.1); CREATININE 1.4 mg/dL (0.6-1.0); GFR 37.7; POTASSIUM 4.1 mmol/L (3.5-5.1)
== END | disposition home or self-care (01) ==
LOC: SURGPAT 12:53
PROVIDERS: ATTEND Surgery
DX: Z01.812 Encounter for preprocedural laboratory examination (principal)
CPT/HCPCS: 36415; 80048; 82040; 83036; 85027

== ENCOUNTER 2017-03-07 06:34 | Inpatient (IN) | payer MEDICARE, OTHER ==
[~2017-03-07] VITALS: Ht 167.6 cm; Wt 82.6 kg
[2017-03-07] VITALS (9 sets, daily range): BP systolic 102–131; BP diastolic 31–57
[~2017-03-07 06:34] MED LIST changes: +BUPIVAC MPF-EPI 0.5%-1:200000 30 ML VIAL. ONE; +ISOSULFAN BLUE 50 MG/5 ML VIAL. SQ ONE
[2017-03-07] MEDS ORDERED: ONDANSETRON PF 4 MG/2 ML VIAL. IV PRN ×2 (07:00→09:30)
[2017-03-07] MEDS ORDERED: fentaNYL PF VIAL 100 MCG/2 ML VIAL IV PRN (07:00)
[2017-03-07] MEDS ORDERED: LIDOCAINE 1% 1 ML SYRINGE. ID PRN (07:00)
[2017-03-07] MEDS ORDERED: IV RINGERS,LACTATED 1000ML 1,000 ML IV SCH (07:00)
[2017-03-07] MEDS ORDERED: MORPHINE SULFATE 2 MG/ML DISP.SYRIN. IV PRN (07:00)
[2017-03-07] MEDS ORDERED: PROCHLORPERAZINE 10 MG/2 ML VIAL. IV PRN (07:00)
[2017-03-07] MEDS ORDERED: MIDAZOLAM HCL/PF 2 MG/2 ML VIAL. ONE (07:36)
[2017-03-07] MEDS ORDERED: DEXAMETHASONE SOD PHOS 20 MG/5 ML VIAL. ONE (07:36)
[2017-03-07] MEDS ORDERED: fentaNYL PF VIAL 100 MCG/2 ML VIAL ONE (07:36)
[2017-03-07] MEDS ORDERED: PROPOFOL 20 ML IV ONE (07:36)
[2017-03-07] MEDS ORDERED: LIDOCAINE 2% 100 MG/5 ML SYRINGE. ONE (07:36)
[2017-03-07] MEDS ORDERED: SEVOFLURANE 61 TO 120 MINUTES. IH ONE (07:36)
[2017-03-07] MEDS ORDERED: ONDANSETRON PF 4 MG/2 ML VIAL. ONE (07:37)
[2017-03-07] MEDS ORDERED: PHENYLEPHRINE in 0.9% NACL PF 1 MG/10 ML DISP.SYRIN. IV ONE (07:59)
--- NOTE | 2017-03-07 09:23 | PDOC ---
BRIEF OPERATIVE NOTE Date: March 07, 2017 Pre-Op Diagnosis hx of breast cancer Post-Op Diagnosis same Procedure Performed right simple mastectomy, removal of right subclavian power port, aspiration left chest seroma Surgeon Ja Electric Range Preparer Kalie DOWD Anesthesia Type: General Blood Loss 50cc IV Fluid 1900cc Specimens Obtained right breast Findings no obvious abnormalities Complications none Additional Remarks Wk # [id number] BARTOLOME HEALY MD March 07, 2017 09:23
[2017-03-07] MEDS ORDERED: 0.9 % SODIUM CHLORIDE 10 ML DISP.SYRIN. IV PRN (09:30)
[2017-03-07] MEDS ORDERED: diphenhydrAMINE 50 MG/ML VIAL IV PRN (09:30)
[2017-03-07] MEDS ORDERED: oxyCODONE/APAP 5/325 1 TAB TABLET PO PRN (09:30)
[2017-03-07] MEDS ORDERED: diphenhydrAMINE HCL 25 MG CAPSULE PO PRN (09:30)
[2017-03-07] MEDS: fentaNYL PF VIAL 100 MCG/2 ML VIAL IV PRN ×4 (09:32→09:59)
[2017-03-07] MEDS ORDERED: ALBUTEROL SULFATE 2.5 MG/3 ML NEBU. NEB PRN (09:45)
--- NOTE | 2017-03-07 10:53 | OP ---
DATE OF SURGERY: 03/07/2017 PREOPERATIVE DIAGNOSIS: Left breast cancer, completed chemotherapy, here for prophylactic right mastectomy. POSTOPERATIVE DIAGNOSIS: Left breast cancer, completed chemotherapy, here for prophylactic right mastectomy. PROCEDURE: Right simple mastectomy, removal of PowerPort. SURGEON: Ramos Healy MD WILDLIFE CONTROL OPERATOR: LIAN Morgan ANESTHESIA: General. ESTIMATED BLOOD LOSS: 50 mL. IV FLUID: 1900 mL. INDICATIONS: The patient is a 66-year-old, status post adjuvant chemotherapy for an invasive cancer in her left breast, brought for prophylactic right mastectomy and removal of her PowerPort. DESCRIPTION OF PROCEDURE: The patient brought to the operating suite, given a general anesthetic, and the right chest, arm, and left chest were prepped and draped in the usual sterile fashion. An elliptical incision was outlined with a marking pen on the right breast to include the nipple-areola complex. Superior skin flap was incised and developed with cautery dissection. Hemostasis with cautery and LigaSure. Similarly, the inferior skin flap was incised and developed with cautery dissection and the breast swept off the chest wall from medial to lateral. A suture was marked in the 3 o'clock location where the specimen was place and it was passed off. By elevating the superior skin flap, we were able to identify the ____ from the PowerPort and delivering it along with the fibrinous capsule around it with cautery dissection. A 19-[place] round Angelo drain was brought through a stab wound in the lower skin flap, left under the superior skin flap and into the axilla. This was secured with a silk stitch. When a correct sponge count was obtained and hemostasis was present, the wound was closed with interrupted, inverted 3-0 Vicryl in the subcutaneous tissue. Subcuticular 4-0 Monocryl with Steri-Strips for the skin. Sterile dressing applied. The left axilla had been prepped previously and an 18-gauge needle was used to aspirate approximately 400 mL of clear fluid. The patient was awakened from her anesthetic and taken to the recovery room in satisfactory condition. RAMOS HEALY MD DR: JUSTIN/naresh JOB#: [id number] / [id number]
[2017-03-07] MEDS: LISINOPRIL 20 MG TABLET PO SCH (11:00)
[2017-03-07] MEDS: hydroCHLOROthiazide 25 MG TABLET PO SCH (11:00)
[2017-03-07] MEDS: GABAPENTIN 300 MG CAPSULE. PO SCH ×2 (11:21→21:21)
[2017-03-07] MEDS: FERROUS SULFATE 325 MG TABLET. PO SCH (11:21)
[2017-03-07] MEDS: FLUoxetine HCL 20 MG CAPSULE PO SCH (11:22)
[2017-03-07] MEDS: FUROSEMIDE 40 MG TABLET. PO SCH (11:22)
[2017-03-07] MEDS: LEVOTHYROXINE 112 MCG TABLET PO SCH (11:22)
[2017-03-07] MEDS: ALBUTEROL SULFATE 2.5 MG/3 ML NEBU. NEB SCH ×4 (11:25→23:14)
[2017-03-07] MEDS: oxyCODONE/APAP 5/325 1 TAB TABLET PO PRN ×2 (12:33→17:10)
[2017-03-07] MEDS: POTASSIUM CL 20MEQ-0.45% NACL 1,000 ML IV SCH ×2 (12:52→23:50)
[2017-03-07] MEDS: HYDROmorphone 2 MG/ML VIAL IV PRN ×3 (15:21→23:57)
[2017-03-07] MEDS: GLIMEPIRIDE 2 MG TABLET. PO SCH (17:10)
[2017-03-07] MEDS ORDERED: ENOXAPARIN 40 MG/0.4 ML SYRINGE. SQ SCH (21:00)
[2017-03-07] MEDS ORDERED: ATORVASTATIN CALCIUM 40 MG TABLET. PO SCH (21:00)
[2017-03-07] MEDS: DOCUSATE SODIUM 100 MG CAPSULE. PO SCH (21:21)
[2017-03-08] MEDS: ALBUTEROL SULFATE 2.5 MG/3 ML NEBU. NEB SCH ×3 (03:20→11:37)
[2017-03-08 03:34] VITALS: BP 113/67
[2017-03-08] MEDS: HYDROmorphone 2 MG/ML VIAL IV PRN (06:37)
[2017-03-08 07:00] VITALS: BP 137/47
[2017-03-08] MEDS: LEVOTHYROXINE 112 MCG TABLET PO SCH (07:38)
[2017-03-08] MEDS: GLIMEPIRIDE 2 MG TABLET. PO SCH (08:57)
[2017-03-08] MEDS: FERROUS SULFATE 325 MG TABLET. PO SCH (08:57)
[2017-03-08] MEDS: DOCUSATE SODIUM 100 MG CAPSULE. PO SCH (08:57)
[2017-03-08] MEDS: GABAPENTIN 300 MG CAPSULE. PO SCH (08:57)
[2017-03-08] MEDS: FLUoxetine HCL 20 MG CAPSULE PO SCH (08:57)
[2017-03-08] MEDS: FUROSEMIDE 40 MG TABLET. PO SCH (08:58)
[2017-03-08] MEDS: LISINOPRIL 20 MG TABLET PO SCH (08:58)
[2017-03-08] MEDS: hydroCHLOROthiazide 25 MG TABLET PO SCH (08:58)
--- NOTE | 2017-03-08 09:41 | PDOC3 ---
Discharge Summary* Date of Admission: March 07, 2017 Date of Discharge: March 08, 2017 Admitting Diagnosis hx of left breast cancer Final Diagnosis same Procedures right simple mastectomy, removal of right subclavian power port, aspiration seroma left chest Brief Hospital Course Ms. Melara is a 66 old female who presented with request for port removal and prophylactic right mastectomy for her hx of left breast invasive cancer. She has completed her adjuvant chemo. Disposition/Orders: D/C to Home CONDITION AT DISCHARGE: Improved Diet: Regular Scheduled Albuterol Sulfate (Albuterol Sulfate Neb Soln), 1 VIAL NEB PRN Q4HRS, (Reported) Albuterol Sulfate (Ventolin Hfa Inhaler), 2 PUFF INH Q4HRS, (Reported) Atorvastatin Calcium (Atorvastatin Calcium), 40 MG PO HS, (Reported) Fluoxetine Hcl (Prozac), 80 MG PO DAILYWBKFT, (Reported) Furosemide (Furosemide), 1 TAB PO DAILY, (Reported) Gabapentin (Gabapentin), 900 MG PO BID, (Reported) Glimepiride (Glimepiride), 1 TAB PO BID, (Reported) Iron,Carbonyl (Feosol), 325 MG PO DAILY, (Reported) Levothyroxine Sodium (Levothyroxine Sodium), 112 MCG PO DAILYAC, (Reported) Lisinopril/Hydrochlorothiazide (Lisinopril-Hctz 20-25 Mg Tab), 2 TAB PO DAILY, ( Reported) Metformin Hcl (Metformin Hcl), 1 TAB PO BID, (Reported) Scheduled PRN Hydrocodone/Apap 5-325 ([place] 5-325 Tablet), 1 TAB PO Q6HRS PRN for PAIN, ( Reported) Discontinued Medications Aspirin (Aspirin), 325 MG PO DAILY, (Reported) FOLLOW UP APPOINTMENT: later this week with ANGELIC output Time Spent Total time spent with patient 10 minutes for coordination of care, counseling, and education. BARTOLOME HEALY MD March 08, 2017 09:41
--- NOTE | 2017-03-08 09:42 | DISCH ---
DISCHARGE INSTRUCTIONS Condition on Discharge Condition on Discharge: Stable Activity After Discharge Activity Instructions for Disc: Activity as tolerated, Avoid exertion Lifting Instructions after Dis: No heavy lifting Diet after Discharge Diet after Discharge: Regular Wound Incision Care Wound/Incision Care: Ice to area for comfort Other wound/incision instructi: ANGELIC drain Follow-Up Follow up with: Ja Tuesday for drain output BARTOLOME HEALY MD March 08, 2017 09:42
[2017-03-08 11:00] VITALS: BP 117/48
--- NOTE | 2017-03-09 13:12 | PATHOLOGY ---
PATHOLOGY REPORT * * * * * * * * FINAL DIAGNOSIS: Breast, right simple mastectomy: - Proliferative fibrocystic changes with the following components: a. Moderate/florid ductal epithelial hyperplasia, focal b. Stromal fibrosis c. Mild duct ectasia, focal COMMENT: There is no atypia or evidence of malignancy. (JPM:[email or web address]; d/t: 03/09/17) REPORT ELECTRONICALLY SIGNED BY: Krishna Hinton M.D. DATE/TIME: 03/09/2017 13:11 * * * * * * * * GROSS PATHOLOGY: Received in formalin, labeled "Farida Muñiz-right breast" is a simple mastectomy specimen (1273 g, 22 by 17 x 6.5 cm). There is a suture denoting the 3:00 aspect. On the superficial aspect of the specimen, there is a wrinkled ellipse of white-gibson skin measuring approximately 26 x 23.5. The skin features a 1.5 x 1.4 x 0.8 cm nipple. No discrete dimpling or skin retraction is identified surrounding the nipple. The specimen is inked as follows: Superior anterior-blue, inferior anterior-green, and deep-black. The specimen is serially sectioned and palpated to reveal a bright yellow, fatty cut surface with focal interspersed areas of fibrous tissue. No discrete masses or lesions are grossly identified. Interior Decorator sections are submitted as follows: O9-C2-zonytueiukrtkt sections of the upper outer quadrant R7-F9-dbxoxbsvvafise sections of the upper inner quadrant I2-D5-bkmjvuxssvhlbh sections of the lower inner quadrant I9-A8-vdsfkexnednoje sections of the lower outer quadrant A9-teleservices representative section of skin and entire nipple, trisected Time surgically removed: 839 on 03/07/17, time placed in formalin: 841 on 03/07/17, time of fixation: 37 hours 15 minutes (KARYN; 03/08/2017) INITIAL CPT CODE(S): A; 13566 Professional services performed by [facility] at [address] [address] Technical services performed by [facility] at [address] [place] [address], [address], [place] [address]. SPECIMEN(S) RECEIVED: A.Right breast CLINICAL HISTORY: Cancer of left breast PATIENT: FARIDA MUÑIZ /AGE: 2 1950 (Age: 66) PATIENT #: [id number] ALT CASE #: SPECIMEN COLLECTION DATE: 03/07/2017 SPECIMEN RECEIVED DATE: 03/07/2017 [facility] - [id number] [place] [address] - PHONE: [phone] * * * END OF REPORT * * *
== END 2017-03-08 12:20 | disposition home or self-care (01) | DRG 585 ==
LOC: SURG 06:34 → 4 NORTH 10:05
PROVIDERS: ADMIT Surgery; ATTEND Surgery
PROC: 0JPTXXZ Removal of Tunneled Vascular Access Device from Trunk Subcutaneous Tissue and Fascia, External Approach (ICD-10-PCS; 2017-03-07)
PROC: 0HTT0ZZ Resection of Right Breast, Open Approach (ICD-10-PCS; principal; 2017-03-07 08:00)
PROC: 0X953ZZ Drainage of Left Axilla, Percutaneous Approach (ICD-10-PCS; 2017-03-07 08:00)
DX: Z40.01 Encounter for prophylactic removal of breast (principal); Z85.3 Personal history of malignant neoplasm of breast
CPT/HCPCS: 82947; 88307; 94250; 94640; J1100; J1170; J1650; J2250; J2370; J2405; J2704; J3010; J3490; J7120; Q9968

== ENCOUNTER 2017-04-20 13:59 | Emergency (ER) | payer MEDICARE, OTHER ==
[~2017-04-20] VITALS: Ht 165.1 cm; Wt 74.8 kg
[~2017-04-20 13:59] MED LIST changes: -ASPI325T4 PO; +ASPI325T8 PO; -BUPIVAC MPF-EPI 0.5%-1:200000 30 ML VIAL. ONE; -ISOSULFAN BLUE 50 MG/5 ML VIAL. SQ ONE
[2017-04-20] MEDS ORDERED: IV NORMAL SALINE 1000ML BAG 1,000 ML IV SCH (14:20)
[2017-04-20] MEDS ORDERED: ONDANSETRON PF 4 MG/2 ML VIAL. IV ONE (14:30)
--- NOTE | 2017-04-20 14:41 | PHYS DOC ---
Past Medical History Past Medical History: Cancer, Diabetes-Type II, High Cholesterol, Hypertension Past Surgical History: Cancer Surgery, Hysterectomy, Knee Replacement, Other Additional Past Surgical Histo: left mastectomy, back x3, pin in toe, right knee replacement Alcohol Use: None Drug Use: None Adult General Chief Complaint Chief Complaint: DEHYDRATION HPI HPI Patient is a 66 year old female who presents with multiple episodes of nonbloody nonbilious emesis associated with nausea over the past 2 days. She also has some general fatigue. She denies abdominal pain, chest pain, cough, dyspnea, diarrhea, dysuria, material, back pain. She denies sick contacts. She has Zofran at home, but she has not been using it. Review of Systems Review of Systems Constitutional: Denies fever or chills [] Eyes: Denies change in visual acuity, redness, or eye pain [] HENT: Denies nasal congestion or sore throat [] Respiratory: Denies cough or shortness of breath [] Cardiovascular: No additional information not addressed in HPI [] GI: Denies abdominal pain, bloody stools or diarrhea [] : Denies dysuria or hematuria [] Musculoskeletal: Denies back pain or joint pain [] Integument: Denies rash or skin lesions [] Neurologic: Denies headache, focal weakness or sensory changes [] Endocrine: Denies polyuria or polydipsia [] Current Medications Current Medications Current Medications Medications (Trade) Dose Ordered Sig/Avi Start Time Stop Time Status Last Admin Dose Admin Ibuprofen (Motrin) 400 mg 1X ONCE 04/20/17 16:00 04/20/17 16:01 DC 04/20/17 16:23 400 MG Ondansetron HCl (Zofran) 4 mg 1X ONCE 04/20/17 14:30 04/20/17 14:31 DC 04/20/17 14:43 4 MG Potassium Chloride (Klor-Con) 40 meq 1X ONCE 04/20/17 15:15 04/20/17 15:16 DC 04/20/17 15:35 40 MEQ Sodium Chloride 1,000 ml @ 1,000 mls/hr Q1H 04/20/17 14:20 04/20/17 15:19 DC 04/20/17 14:43 1,000 MLS/HR Allergies Allergies Allergies Coded Allergies Type Severity Reaction Last Updated Verified simvastatin Adverse Reaction Intermediate MUSCLE CRAMPING 03/07/17 Yes Physical Exam Physical Exam Constitutional: Well developed, well nourished, no acute distress, non-toxic appearance. [] HENT: Normocephalic, atraumatic, bilateral external ears normal, oropharynx moist, nose normal. [] Eyes: PERRLA, EOMI. [] Neck: Normal range of motion, supple. [] Cardiovascular:Heart rate regular rhythm [] Lungs & Thorax: Bilateral breath sounds clear to auscultation [] Abdomen: Bowel sounds normal, soft, no tenderness. [] Skin: Warm, dry, no erythema, no rash. [] Back: No tenderness, no CVA tenderness. [] Extremities: No tenderness, ROM intact, no edema. [] Neurologic: Alert and oriented X 3, normal motor function, normal sensory function, no focal deficits noted. [] Psychologic: Affect normal, judgement normal, mood normal. [] Current Patient Data Vital Signs Vital Signs Date Time Temp Pulse Resp B/P (MAP) Pulse Ox O2 Delivery O2 Flow Rate FiO2 04/20/17 14:11 97.8 83 17 166/72 (103) 96 Room Air 97.8 Lab Values Laboratory Tests Test 04/20/17 14:30 04/20/17 15:44 White Blood Count 11.0 x10^3/uL (4.0-11.0) Red Blood Count 3.95 x10^6/uL (3.50-5.40) Hemoglobin 12.5 g/dL (12.0-15.5) Hematocrit 35.8 % (36.0-47.0) L Mean Corpuscular Volume 91 fL (79-100) Mean Corpuscular Hemoglobin 32 pg (25-35) Mean Corpuscular Hemoglobin Concent 35 g/dL (31-37) Red Cell Distribution Width 14.3 % (11.5-14.5) Platelet Count 224 x10^3/uL (140-400) Neutrophils (%) (Auto) 86 % (31-73) H Lymphocytes (%) (Auto) 5 % (24-48) L Monocytes (%) (Auto) 9 % (0-9) Eosinophils (%) (Auto) 0 % (0-3) Basophils (%) (Auto) 0 % (0-3) Neutrophils # (Auto) 9.5 x10^3uL (1.8-7.7) H Lymphocytes # (Auto) 0.5 x10^3/uL (1.0-4.8) L Monocytes # (Auto) 1.0 x10^3/uL (0.0-1.1) Eosinophils # (Auto) 0.0 x10^3/uL (0.0-0.7) Basophils # (Auto) 0.0 x10^3/uL (0.0-0.2) Segmented Neutrophils % 73 % (35-66) H Band Neutrophils % 17 % (0-9) H Lymphocytes % 5 % (24-48) L Monocytes % 4 % (0-10) Basophils % 1 % (0-3) Platelet Estimate Adequate (ADEQUATE) Sodium Level 133 mmol/L (136-145) L Potassium Level 3.2 mmol/L (3.5-5.1) L Chloride Level 92 mmol/L (98-107) L Carbon Dioxide Level 27 mmol/L (21-32) Anion Gap 14 (6-14) Blood Urea Nitrogen 17 mg/dL (7-20) Creatinine 1.1 mg/dL (0.6-1.0) H Estimated GFR (Cockcroft-Gault) 49.8 Glucose Level 251 mg/dL (70-99) H Calcium Level 9.5 mg/dL (8.5-10.1) Total Bilirubin 1.0 mg/dL (0.2-1.0) Direct Bilirubin 0.3 mg/dL (0.0-0.2) H Aspartate Amino Transferase (AST) 14 U/L (15-37) L Alanine Aminotransferase (ALT) 21 U/L (14-59) Alkaline Phosphatase 25 U/L (46-116) L Total Protein 7.6 g/dL (6.4-8.2) Albumin 3.3 g/dL (3.4-5.0) L Lipase 63 U/L (73-393) L Urine Collection Type Unknown Urine Color Yellow Urine Clarity Clear Urine pH 7.0 Urine Specific [place] 1.020 Urine Protein 30 mg/dL (NEG-TRACE) Urine Glucose (UA) 250 mg/dL (NEG) Urine Ketones (Stick) 15 mg/dL (NEG) Urine Blood Negative (NEG) Urine Nitrite Negative (NEG) Urine Bilirubin Negative (NEG) Urine Urobilinogen Dipstick 1.0 mg/dL (0.2 mg/dL) Urine Leukocyte Esterase Negative (NEG) Urine RBC Occ /HPF (0-2) Urine WBC Occ /HPF (0-4) Urine Squamous Epithelial Cells Few /LPF Urine Bacteria 0 /HPF (0-FEW) Laboratory Tests 04/20/17 14:30 Laboratory Tests 04/20/17 14:30 Course & Med Decision Making Course & Med Decision Making Pertinent Labs and Imaging studies reviewed. (See chart for details) Laboratory evaluation is largely unremarkable. She is feeling better after medications and would like to go home. She is tolerating oral intake. She has Zofran at home and states she does not need a prescription for antiemetic from here. Return precautions given. She understands and agrees with plan. Dragon Disclaimer Dragon Disclaimer This electronic medical record was generated, in whole or in part, using a voice recognition dictation system. Departure Departure Impression: Primary Impression: Nausea and vomiting Disposition: HOME, SELF-CARE Condition: STABLE Referrals: ZAYRA DISLA MD (PCP) Patient Instructions: Nausea and Vomiting, [id number] Additional Instructions: Follow-up with primary care doctor within one week. Return for any concerns. Problem Qualifiers Primary Impression: Nausea and vomiting Vomiting type: unspecified Vomiting Intractability: non-intractable Qualified Codes: R11.2 - Nausea with vomiting, unspecified Collin LUNA MD Apr 20, 2017 14:41
[2017-04-20 14:42] LABS: BASO % 0 % (0-3); EOS % 0 % (0-3); HEMATOCRIT 35.8 % (36.0-47.0); HEMOGLOBIN 12.5 g/dL (12.0-15.5); LYMPH # 0.5 x10^3/uL (1.0-4.8); LYMPH % 5 % (24-48); MEAN CORPUSCULAR HEMOGLOBIN 32 pg (25-35); MEAN CORPUSCULAR HGB CONC 35 g/dL (31-37); MEAN CORPUSCULAR VOLUME 91 fL (79-100); MONO % 9 % (0-9); NEUT % 86 % (31-73); PLATELET COUNT 224 x10^3/uL (140-400); RED BLOOD COUNT 3.95 x10^6/uL (3.50-5.40); RED CELL DISTRIBUTION WIDTH 14.3 % (11.5-14.5)
[2017-04-20 14:51] LABS: CALCIUM 9.5 mg/dL (8.5-10.1); CREATININE 1.1 mg/dL (0.6-1.0); GFR 49.8; POTASSIUM 3.2 mmol/L (3.5-5.1)
[2017-04-20 14:57] LABS: ALBUMIN 3.3 g/dL (3.4-5.0); DIRECT BILIRUBIN 0.3 mg/dL (0.0-0.2); TOTAL PROTEIN 7.6 g/dL (6.4-8.2)
[2017-04-20] MEDS ORDERED: POTASSIUM CHLORIDE 20 MEQ TABLET.ER. PO ONE (15:15)
[2017-04-20 15:53] LABS: BILIRUBIN,URINE NEGATIVE (NEG); GLUCOSE,URINE 250 mg/dL (NEG); NITRITE,URINE NEGATIVE (NEG); PROTEIN,URINE 30 mg/dL (NEG-TRACE)
[2017-04-20] MEDS ORDERED: IBUPROFEN 400 MG TABLET. PO ONE (16:00)
--- NOTE | 2017-04-20 16:02 | EKG ---
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
[2017-04-20 16:11] LABS: BACTERIA,URINE 0 /HPF (0-FEW); RBC,URINE OCC /HPF (0-2); SQUAMOUS EPITHELIAL CELL,UR FEW /LPF; WBC,URINE OCC /HPF (0-4)
[2017-04-20 16:32] LABS: % BASOS 1 % (0-3); PLT ESTIMATE ADEQUATE (ADEQUATE)
[2017-04-20 17:12] VITALS: BP 123/56
[2017-04-20] MEDS ORDERED: ACETAMINOPHEN 500 MG TABLET PO ONE (17:15)
== END 2017-04-20 17:10 | disposition home or self-care (01) ==
LOC: ER 13:59
DX: R11.2 Nausea with vomiting, unspecified (principal); R53.83 Other fatigue; E11.9 Type 2 diabetes mellitus without complications; E78.00 Pure hypercholesterolemia, unspecified; I10 Essential (primary) hypertension; Z90.12 Acquired absence of left breast and nipple; Z96.651 Presence of right artificial knee joint; Z88.8 Allergy status to other drugs, medicaments and biological substances
CPT/HCPCS: 36415; 80048; 80076; 81001; 82962; 83690; 85007; 85027; 93005; 96361; 96374; 99285; J2405; J7030

== ENCOUNTER 2017-05-18 08:28 | Day surgery (SDC) | payer MEDICARE, OTHER ==
[~2017-05-18] VITALS: Ht 167.6 cm; Wt 78.9 kg
[~2017-05-18 08:28] MED LIST changes: +ALPR0.254 PO; +ANAS1TAB PO; +BUPR150T11 PO
[2017-05-18] MEDS ORDERED: IV RINGERS,LACTATED 1000ML 1,000 ML IV SCH ×2 (08:43→10:14)
[2017-05-18] MEDS ORDERED: fentaNYL PF VIAL 100 MCG/2 ML VIAL IV PRN ×4 (08:45→10:15)
[2017-05-18] MEDS ORDERED: LIDOCAINE 1% 1 ML SYRINGE. ID PRN ×2 (08:45→10:15)
[2017-05-18] MEDS ORDERED: MIDAZOLAM HCL/PF 2 MG/2 ML VIAL. IV PRN (08:45)
[2017-05-18] MEDS ORDERED: PROCHLORPERAZINE 10 MG/2 ML VIAL. IV PRN (10:15)
[2017-05-18] MEDS ORDERED: MORPHINE SULFATE 2 MG/ML DISP.SYRIN. IV PRN (10:15)
[2017-05-18] MEDS ORDERED: HYDROmorphone 2 MG/ML VIAL IV PRN (10:15)
[2017-05-18] MEDS ORDERED: ONDANSETRON PF 4 MG/2 ML VIAL. IV PRN (10:15)
--- NOTE | 2017-05-18 10:45 | PDOC1 ---
History and Physical Date of Admission Date of Admission DATE: 05/18/17 TIME: 10:41 Identification/Chief Complaint Chief Complaint serous drainage left mastectomy site Problems: Source Source: Chart review, Patient History of Present Illness History of Present Illness Farida is a 66 yo lady who is s/p left modified radical mastectomy. She has had persistent serous drainage from the site and is brought for re-excision. Past Medical History Cardiovascular: HTN Pulmonary: No pertinent hx GI: Other Renal/: Acute renal failure Endocrine: Diabetes Past Surgical History Past Surgical History: Mastectomy, Total knee replacement, Hysterectomy Family History Family History: No Significant Social History Smoke: No ALCOHOL: none Drugs: None Current Medications Current Medications Current Medications Cefazolin Sodium 2 gm/Sodium Chloride 50 ml @ 100 mls/hr ONCE ONCE IV ; Start 05/18/17 at 06:00; Stop 05/18/17 at 06:29; Status DC Midazolam HCl (Versed) 2 mg PRN 1X PRN IV PRIOR TO PROCEDURE; Start 05/18/17 at 08:45; Stop 05/19/17 at 08:44 Fentanyl Citrate (Fentanyl 2ml Vial) 25 mcg PRN Q5MIN PRN IV X 2 DOSES FOR PAIN ; Start 05/18/17 at 08:45; Stop 05/19/17 at 08:44 Fentanyl Citrate (Fentanyl 2ml Vial) 50 mcg PRN Q5MIN PRN IV X 2 DOSES FOR PAIN ; Start 05/18/17 at 08:45; Stop 05/19/17 at 08:44 Ringer's Solution 1,000 ml @ 125 mls/hr Q8H IV Last administered on 05/18/17t 09:03; Start 05/18/17 at 08:43; Stop 05/18/17 at 20:42 Lidocaine HCl 2 ml 1X PRN PRN ID IV START; Start 05/18/17 at 08:45; Stop at 08:44 Ondansetron HCl (Zofran) 4 mg PRN Q6HRS PRN IV NAUSEA/VOMITING; Start 05/18/17 at 10:15; Stop 05/19/17 at 10:14 Fentanyl Citrate (Fentanyl 2ml Vial) 25 mcg PRN Q5MIN PRN IV MILD PAIN; Start 05/18/17 at 10:15; Stop 05/19/17 at 10:14 Fentanyl Citrate (Fentanyl 2ml Vial) 50 mcg PRN Q5MIN PRN IV MODERATE PAIN; Start 05/18/17 at 10:15; Stop 05/19/17 at 10:14 Morphine Sulfate 1 mg PRN Q10MIN PRN IV SEVERE PAIN; Start 05/18/17 at 10:15; Stop 05/19/17 at 10:14 Ringer's Solution 1,000 ml @ 30 mls/hr Q24H IV ; Start 05/18/17 at 10:14; Stop 05/18/17 at 22:13 Lidocaine HCl 2 ml PRN 1X PRN ID PRIOR TO IV START; Start 05/18/17 at 10:15; Stop 05/19/17 at 10:14 Hydromorphone HCl (Dilaudid) 0.5 mg PRN Q10MIN PRN IV SEV PAIN, Second choice; Start 05/18/17 at 10:15; Stop 05/19/17 at 10:14 Prochlorperazine Edisylate (Compazine) 5 mg PACU PRN PRN IV NAUSEA, MRX1; Start 05/18/17 at 10:15; Stop 05/19/17 at 10:14 Active Scripts Active Reported Alprazolam 0.25 Mg Tablet 1 Tab PO PRN QID PRN Bupropion Hcl Sr (Bupropion Hcl) 150 Mg Tablet.er 1 Tab PO BID Diclofenac Sodium 75 Mg Tablet.dr 2 Tab PO DAILY Anastrozole 1 Mg Tablet 1 Tab PO DAILY Gabapentin 300 Mg Capsule 900 Mg PO BID Furosemide 40 Mg Tablet 1 Tab PO DAILY [place] 5-325 Tablet (Acetaminophen/Hydrocodone Bitart) 1 Each Tablet 1 Tab PO Q6HRS PRN Ventolin Hfa Inhaler (Albuterol Sulfate) 18 Gm Hfa.aer.ad 2 Puff INH Q4HRS Albuterol Sulfate Neb Soln (Albuterol Sulfate) 2.5 Mg/3 Ml Vial.neb 1 Vial NEB PRN Q4HRS Levothyroxine Sodium 112 Mcg Tablet 112 Mcg PO DAILYAC Lisinopril-Hctz 20-25 Mg Tab (Lisinopril/Hydrochlorothiazide) 1 Each Tablet 2 Tab PO DAILY Feosol (Iron,Carbonyl) 45 Mg Tablet 325 Mg PO DAILY Glimepiride 4 Mg Tablet 1 Tab PO BID Atorvastatin Calcium 20 Mg Tablet 40 Mg PO HS Prozac (Fluoxetine Hcl) 10 Mg Capsule 80 Mg PO DAILYWBKFT Metformin Hcl 1,000 Mg Tablet 1 Tab PO BID Allergies Allergies: Coded Allergies: simvastatin (Verified Adverse Reaction, Intermediate, MUSCLE CRAMPING, ) ROS Review of System negative with exception of present complaints Physical Exam General: Alert, Oriented X3, Cooperative, No acute distress HEENT: Atraumatic Lungs: Clear to auscultation, Normal air movement Heart: RRR Breasts: Post-mastectomy site (on the left with an open area and serous drainage) Extremities: No clubbing, No cyanosis Vitals Vitals Vital Signs Date Time Temp Pulse Resp B/P (MAP) Pulse Ox O2 Delivery O2 Flow Rate FiO2 05/18/17 08:53 98.6 75 20 97 98.6 05/18/17 08:50 128/74 Room Air VTE Prophylaxis Ordered VTE Prophylaxis Devices: Yes VTE Pharmacological Prophylaxi: No Assessment/Plan Assessment/Plan chronic wound left chest s/p mastectomy excise and close BARTOLOME HEALY MD May 18, 2017 10:45
[2017-05-18] MEDS ORDERED: PROPOFOL 20 ML IV ONE (10:46)
[2017-05-18] MEDS ORDERED: ONDANSETRON PF 4 MG/2 ML VIAL. ONE (10:46)
[2017-05-18] MEDS ORDERED: DEXAMETHASONE SOD PHOS 20 MG/5 ML VIAL. ONE (10:46)
[2017-05-18] MEDS ORDERED: LIDOCAINE 2% PF Vial for OR 5 ML VIAL. ONE (10:46)
[2017-05-18] MEDS ORDERED: SEVOFLURANE 31 TO 60 MINUTES. IH ONE (10:46)
[2017-05-18] MEDS ORDERED: BUPIVACAINE-EPI 0.5%-1:200000 50 ML VIAL. ONE (11:05)
[2017-05-18] MEDS ORDERED: fentaNYL PF VIAL 100 MCG/2 ML VIAL ONE (11:09)
[2017-05-18] MEDS ORDERED: ePHEDrine PF IN SALINE 50 MG/5 ML DISP.SYRIN IV ONE (11:29)
[2017-05-18] MEDS ORDERED: BUPIVACAINE MPF 0.5% 30 ML VIAL. ONE (11:30)
[2017-05-18] MEDS ORDERED: BACITRACIN 50,000 UNIT VIAL. IRR ONE (12:05)
--- NOTE | 2017-05-18 13:26 | DISCH ---
DISCHARGE INSTRUCTIONS Condition on Discharge Condition on Discharge: Stable Activity After Discharge Activity Instructions for Disc: Activity as tolerated, Avoid exertion Lifting Instructions after Dis: No heavy lifting Driving Instructions after Dis: Do not drive today Diet after Discharge Diet after Discharge: Regular Wound Incision Care Wound/Incision Care: Ice to area for comfort Other wound/incision instructi: maintain ANGELIC drain Follow-Up Follow up with: See Ja 05/23 BARTOLOME HEALY MD May 18, 2017 13:26
[2017-05-18] MEDS ORDERED: HYDROcodone/APAP 5/325MG 1 TAB TABLET PO PRN (14:00)
[2017-05-18 14:20] VITALS: BP 137/65
--- NOTE | 2017-05-18 15:23 | PDOC4 ---
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 She has had persistent serous drainage and is brought for wound exploration Operative findings a large fibrinous capsule had developed in the entirety of her wound Operative report: Patient brought to the operating suite and given a general LMA and the left chest arm and side were prepped and draped in usual sterile fashion. The area was cultured. An elliptical skin incision including a small defect in the middle of the incision was outlined with a marking pen and infiltrated with half percent plain Marcaine. Incision was made and with cautery dissection we carefully excised the capsule in its entirety down to subcutaneous fat, chest wall muscle, or skin. The wound was checked for hemostasis. When present it was irrigated with bacitracin irrigation. A 19 Wolof round Angelo drain was brought through an inferior stab wound and left in the subcutaneous space for postoperative drainage secured to the skin with a 2- 0 silk stitch. Tino patter was then spread in the wound. The wound was approximated with 3 vertical mattress stitches of 3-0 nylon. The incision was then closed with a subcuticular 4-0 Monocryl and Steri-Strips. Sterile dressing applied, patient awakened from her anesthetic and taken to the recovery room in satisfactory condition. BARTOLOME HEALY MD May 18, 2017 15:23
--- NOTE | 2017-05-20 16:05 | PATHOLOGY ---
PATHOLOGY REPORT * * * * * * * * FINAL DIAGNOSIS: Segment of skin and attached subcutaneous and fibromembranous tissue, left chest seroma excision: - Serosa showing focal acute and chronic inflammation. - Fat necrosis. - Cicatrix of skin. COMMENT: There is no evidence of malignancy. (JPM:[email or web address]; 05/20/2017) REPORT ELECTRONICALLY SIGNED BY: Krishna Hinton M.D. DATE/TIME: 05/20/2017 16:04 * * * * * * * * GROSS PATHOLOGY: The specimen is received in formalin labeled "Ludmila Muñiz, skin and subcutaneous tissue left mastectomy scar". Received is a large segment of white-gibson to pink-gibson fibromembranous tissue with attached pale gibson, grossly unremarkable skin measuring 15.9 x 9.5 x 4.2 cm in greatest dimensions. The epidermal surface displays a circular defect measuring 2.4 x 1.3 cm. The fibromembranous tissue displays a moderate amount of overlying lobulated tissue. Possible fat necrosis is identified. The specimen is submitted representatively in cassettes A1 through A3. ([facility]; 05/19/2017) INITIAL CPT CODE(S): 73080 Professional services performed [place] [facility] [place] [address] Technical services performed by [facility] at [address] [place] [address], [address], [place] [address]. SPECIMEN(S) RECEIVED: A.Skin and subcutaneous tissue left mastectomy scar CLINICAL HISTORY: Left chest seroma PATIENT: LUDMILA MUÑIZ /AGE: 2 1950 (Age: 66) PATIENT #: [id number] ALT CASE #: SPECIMEN COLLECTION DATE: 05/18/2017 SPECIMEN RECEIVED DATE: 05/18/2017 [facility] - [address] [place] [address] - PHONE: [phone] * * * END OF REPORT * * *
== END 2017-05-18 14:30 | disposition home or self-care (01) ==
LOC: SURG 08:28
PROVIDERS: ATTEND Surgery
DX: L76.34 Postprocedural seroma of skin and subcutaneous tissue following other procedure (principal); Y84.8 Other medical procedures as the cause of abnormal reaction of the patient, or of later complication, without mention of misadventure at the time of the procedure; E78.00 Pure hypercholesterolemia, unspecified; I10 Essential (primary) hypertension; E66.9 Obesity, unspecified; M19.90 Unspecified osteoarthritis, unspecified site; E03.9 Hypothyroidism, unspecified; F32.9 Major depressive disorder, single episode, unspecified; E11.9 Type 2 diabetes mellitus without complications; F17.200 Nicotine dependence, unspecified, uncomplicated; Z90.49 Acquired absence of other specified parts of digestive tract; Z86.69 Personal history of other diseases of the nervous system and sense organs; Z87.01 Personal history of pneumonia (recurrent); Z68.44 Body mass index [BMI] 60.0-69.9, adult; Z90.710 Acquired absence of both cervix and uterus; Z87.39 Personal history of other diseases of the musculoskeletal system and connective tissue; Z96.651 Presence of right artificial knee joint; Z86.39 Personal history of other endocrine, nutritional and metabolic disease
CPT/HCPCS: 10180; 82962; 87071; 87075; 87205; J0690; J1100; J2001; J2405; J2704; J3010; J3490; J7120; 88304

== ENCOUNTER → 2017-06-30 | Outpatient (CLI) | payer MEDICARE, OTHER | END | disposition home or self-care (01) | LOC: PMGWOUND 09:18 | PROVIDERS: ATTEND Emergency Medicine Undersea and Hyperbaric Medicine | DX: T81.31XD Disruption of external operation (surgical) wound, not elsewhere classified, subsequent encounter (principal); I10 Essential (primary) hypertension; E03.9 Hypothyroidism, unspecified; E78.00 Pure hypercholesterolemia, unspecified; F32.9 Major depressive disorder, single episode, unspecified; E66.9 Obesity, unspecified; E11.42 Type 2 diabetes mellitus with diabetic polyneuropathy; Z68.44 Body mass index [BMI] 60.0-69.9, adult; Z87.01 Personal history of pneumonia (recurrent); Z85.3 Personal history of malignant neoplasm of breast; Z90.711 Acquired absence of uterus with remaining cervical stump; Y83.8 Other surgical procedures as the cause of abnormal reaction of the patient, or of later complication, without mention of misadventure at the time of the procedure | CPT/HCPCS: G0463 ==

== ENCOUNTER → 2017-07-07 | Outpatient (CLI) | payer MEDICARE, OTHER | END | disposition home or self-care (01) | LOC: PMGWOUND 07:44 | PROVIDERS: ATTEND Emergency Medicine Undersea and Hyperbaric Medicine | DX: T23.021A Burn of unspecified degree of single right finger (nail) except thumb, initial encounter (principal); T81.31XA Disruption of external operation (surgical) wound, not elsewhere classified, initial encounter; E11.9 Type 2 diabetes mellitus without complications; E78.00 Pure hypercholesterolemia, unspecified; E03.9 Hypothyroidism, unspecified; I10 Essential (primary) hypertension; Z87.891 Personal history of nicotine dependence; Z85.3 Personal history of malignant neoplasm of breast; Z90.710 Acquired absence of both cervix and uterus; X08.8XXA Exposure to other specified smoke, fire and flames, initial encounter; Y93.89 Activity, other specified; Y92.89 Other specified places as the place of occurrence of the external cause; Y99.8 Other external cause status | CPT/HCPCS: 97597 ==

== ENCOUNTER → 2017-07-14 | Outpatient (CLI) | payer MEDICARE, OTHER | END | disposition home or self-care (01) | LOC: PMGWOUND 07:56 | PROVIDERS: ATTEND Emergency Medicine Undersea and Hyperbaric Medicine | DX: T81.31XD Disruption of external operation (surgical) wound, not elsewhere classified, subsequent encounter (principal); T23.221D Burn of second degree of single right finger (nail) except thumb, subsequent encounter; T31.0 Burns involving less than 10% of body surface; E03.9 Hypothyroidism, unspecified; E78.00 Pure hypercholesterolemia, unspecified; F32.9 Major depressive disorder, single episode, unspecified; E66.9 Obesity, unspecified; E11.42 Type 2 diabetes mellitus with diabetic polyneuropathy; I10 Essential (primary) hypertension; Z68.44 Body mass index [BMI] 60.0-69.9, adult; Z90.710 Acquired absence of both cervix and uterus; Z85.3 Personal history of malignant neoplasm of breast; Z87.891 Personal history of nicotine dependence; Z87.01 Personal history of pneumonia (recurrent); X08.8XXD Exposure to other specified smoke, fire and flames, subsequent encounter; Y83.8 Other surgical procedures as the cause of abnormal reaction of the patient, or of later complication, without mention of misadventure at the time of the procedure | CPT/HCPCS: 97597 ==

== ENCOUNTER → 2017-07-21 | Outpatient (CLI) | payer MEDICARE, OTHER | END | disposition home or self-care (01) | LOC: PMGWOUND 07:46 | PROVIDERS: ATTEND Emergency Medicine Undersea and Hyperbaric Medicine | DX: T81.31XD Disruption of external operation (surgical) wound, not elsewhere classified, subsequent encounter (principal); E78.00 Pure hypercholesterolemia, unspecified; E11.9 Type 2 diabetes mellitus without complications; I10 Essential (primary) hypertension; E03.9 Hypothyroidism, unspecified; Z87.891 Personal history of nicotine dependence; Y83.8 Other surgical procedures as the cause of abnormal reaction of the patient, or of later complication, without mention of misadventure at the time of the procedure | CPT/HCPCS: 97597 ==

== ENCOUNTER → 2017-07-28 | Outpatient (CLI) | payer MEDICARE, OTHER | END | disposition home or self-care (01) | LOC: PMGWOUND 10:08 | PROVIDERS: ATTEND Emergency Medicine Undersea and Hyperbaric Medicine | DX: T81.31XD Disruption of external operation (surgical) wound, not elsewhere classified, subsequent encounter (principal); T23.021D Burn of unspecified degree of single right finger (nail) except thumb, subsequent encounter; T31.0 Burns involving less than 10% of body surface; I10 Essential (primary) hypertension; E03.9 Hypothyroidism, unspecified; E78.00 Pure hypercholesterolemia, unspecified; F32.9 Major depressive disorder, single episode, unspecified; E11.42 Type 2 diabetes mellitus with diabetic polyneuropathy; E66.9 Obesity, unspecified; Z68.44 Body mass index [BMI] 60.0-69.9, adult; Z85.3 Personal history of malignant neoplasm of breast; Z90.710 Acquired absence of both cervix and uterus; Z87.01 Personal history of pneumonia (recurrent); Z87.891 Personal history of nicotine dependence; Y83.8 Other surgical procedures as the cause of abnormal reaction of the patient, or of later complication, without mention of misadventure at the time of the procedure | CPT/HCPCS: 99214 ==

== ENCOUNTER 2017-10-13 21:30 | Emergency (ER) | payer MEDICARE ==
[~2017-10-13] VITALS: Ht 167.6 cm; Wt 81.6 kg
[2017-10-13] MEDS ORDERED: ALBUTEROL SULFATE 2.5 MG/3 ML NEBU. NEB ONE (23:00)
[2017-10-13 23:18] LABS: BASO % 1 % (0-3); EOS % 3 % (0-3); HEMATOCRIT 31.8 % (36.0-47.0); HEMOGLOBIN 10.7 g/dL (12.0-15.5); LYMPH # 1.1 x10^3/uL (1.0-4.8); LYMPH % 19 % (24-48); MEAN CORPUSCULAR HEMOGLOBIN 32 pg (25-35); MEAN CORPUSCULAR HGB CONC 34 g/dL (31-37); MEAN CORPUSCULAR VOLUME 94 fL (79-100); MONO % 7 % (0-9); NEUT % 71 % (31-73); PLATELET COUNT 179 x10^3/uL (140-400); RED BLOOD COUNT 3.37 x10^6/uL (3.50-5.40); RED CELL DISTRIBUTION WIDTH 15.2 % (11.5-14.5); WHITE BLOOD COUNT 5.9 x10^3/uL (4.0-11.0)
[2017-10-13 23:30] LABS: CALCIUM 8.7 mg/dL (8.5-10.1); CREATININE 1.4 mg/dL (0.6-1.0); GFR 37.7
[2017-10-13 23:36] LABS: ALBUMIN 3.6 g/dL (3.4-5.0); TOTAL BILIRUBIN 0.2 mg/dL (0.2-1.0); TOTAL PROTEIN 7.1 g/dL (6.4-8.2)
--- NOTE | 2017-10-13 23:49 | PHYS DOC ---
Past Medical History Past Medical History: Cancer, Diabetes-Type II, High Cholesterol, Hypertension Past Surgical History: Cancer Surgery, Hysterectomy, Knee Replacement, Other Additional Past Surgical Histo: left mastectomy, back x3, pin in toe, right knee replacement Alcohol Use: None Drug Use: None Adult General Chief Complaint Chief Complaint: Congestion HPI HPI Patient is a 66 year old emailed presents with chest tightness, congestion, rhinorrhea and shortness of air starting 2 days ago. Symptoms have progressed throughout the day. Patient denies history of CHF, or asthma. No history of chronic pulmonary disease. No fever chills, nausea vomiting or sweats. No leg pain or swelling. No history of DVT PE, coronary artery disease or congestive heart failure.[] Review of Systems Review of Systems Review symptoms as per history of present illness. All other review symptoms are negative. All other systems were reviewed and found to be within normal limits, except as documented in this note. Current Medications Current Medications Current Medications Medications (Trade) Dose Ordered Sig/Avi Start Time Stop Time Status Last Admin Dose Admin Albuterol Sulfate (Ventolin Neb Soln) 5 mg 1X ONCE 10/13/17 23:00 10/13/17 23:01 DC 10/13/17 22:58 5 MG Fentanyl Citrate (Fentanyl 2ml Vial) 50 mcg 1X ONCE 10/14/17 00:30 10/14/17 00:31 DC 10/14/17 01:25 50 MCG Ondansetron HCl (Zofran) 4 mg 1X ONCE 10/14/17 00:30 10/14/17 00:31 DC 10/14/17 01:24 4 MG Prednisone (Prednisone) 60 mg 1X ONCE 10/14/17 00:15 10/14/17 00:16 DC 10/14/17 01:23 60 MG Sodium Chloride 1,000 ml @ 1,000 mls/hr 1X ONCE 10/14/17 00:30 10/14/17 01:29 DC 10/14/17 01:28 1,000 MLS/HR Allergies Allergies Allergies Coded Allergies Type Severity Reaction Last Updated Verified simvastatin Adverse Reaction Intermediate MUSCLE CRAMPING 05/18/17 Yes Physical Exam Physical Exam Constitutional: Well developed, well nourished, no acute distress. [] HENT: Normocephalic, atraumatic, bilateral external ears normal, oropharynx moist, no oral exudates, nose normal. [] Eyes: PERRLA, EOMI, conjunctiva normal, no discharge. [] Neck: Normal range of motion, no tenderness, supple, no stridor. [] Cardiovascular:Heart rate regular rhythm, no murmur. Negative Homans sign. [] Lungs & Thorax: Increased work of breathing, diminished bilaterally with coarse inspiratory and expiratory wheezes, no rales appreciated. No conversational dyspnea.[] Abdomen: Bowel sounds normal, soft, no tenderness, no masses, no pulsatile masses. [] Skin: Warm, dry[] Back: No tenderness. [] Extremities: No tenderness, no cyanosis, no clubbing, ROM intact, no edema. [] Neurologic: Alert and oriented X 3, normal motor function, normal sensory function, no focal deficits noted. [] Psychologic: Affect normal, judgement normal, mood normal. [] Current Patient Data Vital Signs Vital Signs Date Time Temp Pulse Resp B/P (MAP) Pulse Ox O2 Delivery O2 Flow Rate FiO2 10/14/17 02:02 78 15 108/51 (70) 95 Room Air 10/13/17 22:09 98.0 98.0 Lab Values Laboratory Tests Test 10/13/17 23:09 10/13/17 23:56 White Blood Count 5.9 x10^3/uL (4.0-11.0) Red Blood Count 3.37 x10^6/uL (3.50-5.40) L Hemoglobin 10.7 g/dL (12.0-15.5) L Hematocrit 31.8 % (36.0-47.0) L Mean Corpuscular Volume 94 fL (79-100) Mean Corpuscular Hemoglobin 32 pg (25-35) Mean Corpuscular Hemoglobin Concent 34 g/dL (31-37) Red Cell Distribution Width 15.2 % (11.5-14.5) H Platelet Count 179 x10^3/uL (140-400) Neutrophils (%) (Auto) 71 % (31-73) Lymphocytes (%) (Auto) 19 % (24-48) L Monocytes (%) (Auto) 7 % (0-9) Eosinophils (%) (Auto) 3 % (0-3) Basophils (%) (Auto) 1 % (0-3) Neutrophils # (Auto) 4.2 x10^3uL (1.8-7.7) Lymphocytes # (Auto) 1.1 x10^3/uL (1.0-4.8) Monocytes # (Auto) 0.4 x10^3/uL (0.0-1.1) Eosinophils # (Auto) 0.2 x10^3/uL (0.0-0.7) Basophils # (Auto) 0.0 x10^3/uL (0.0-0.2) Sodium Level 140 mmol/L (136-145) Potassium Level 4.0 mmol/L (3.5-5.1) Chloride Level 100 mmol/L (98-107) Carbon Dioxide Level 27 mmol/L (21-32) Anion Gap 13 (6-14) Blood Urea Nitrogen 32 mg/dL (7-20) H Creatinine 1.4 mg/dL (0.6-1.0) H Estimated GFR (Cockcroft-Gault) 37.7 BUN/Creatinine Ratio 23 (6-20) H Glucose Level 171 mg/dL (70-99) H Calcium Level 8.7 mg/dL (8.5-10.1) Total Bilirubin 0.2 mg/dL (0.2-1.0) Aspartate Amino Transferase (AST) 24 U/L (15-37) Alanine Aminotransferase (ALT) 43 U/L (14-59) Alkaline Phosphatase 43 U/L (46-116) L Troponin I Quantitative < 0.017 ng/mL (0.000-0.055) FP-Bwl-K-Type Natriuretic Peptide 93 pg/mL (0-124) Total Protein 7.1 g/dL (6.4-8.2) Albumin 3.6 g/dL (3.4-5.0) Albumin/Globulin Ratio 1.0 (1.0-1.7) Influenza Type A Antigen Negative (NEGATIVE) Influenza Type B Antigen Negative (NEGATIVE) Laboratory Tests 10/13/17 23:09 Laboratory Tests 10/13/17 23:09 EKG EKG [ekg: Normal sinus rhythm, rate 77, no acute ST-T wave changes, QTC 457.] Radiology/Procedures Radiology/Procedures [Chest x-ray: No acute cardiopulmonary disease] Course & Med Decision Making Course & Med Decision Making Pertinent Labs and Imaging studies reviewed. (See chart for details) [Symptoms improved with treatment. PCP follow up. Return precautions reviewed. ] Rj Disclaimer Dragon Disclaimer This electronic medical record was generated, in whole or in part, using a voice recognition dictation system. Departure Departure Referrals: ZAYRA DISLA MD (PCP) LARA CHOUDHURY DO Oct 13, 2017 23:48
[2017-10-14] MEDS ORDERED: predniSONE 20 MG TABLET PO ONE (00:15)
[2017-10-14 00:24] LABS: OBC FLU VALID
[2017-10-14] MEDS ORDERED: ONDANSETRON PF 4 MG/2 ML VIAL. IV ONE (00:30)
[2017-10-14] MEDS ORDERED: IV NORMAL SALINE 1000ML BAG 1,000 ML IV ONE (00:30)
[2017-10-14] MEDS ORDERED: fentaNYL PF VIAL 100 MCG/2 ML VIAL IV ONE (00:30)
[2017-10-14 02:02] VITALS: BP 108/51
--- NOTE | 2017-10-14 06:13 | EKG ---
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
--- NOTE | 2017-10-14 07:12 | RAD ---
Indication: Short of air today Technique: Upright portable chest radiograph was obtained. Comparison is from December 04, 2016. Findings: The lungs are clear. The heart is not enlarged. There is no heart failure. There is atheromatous disease in the thoracic aorta. Patient's port has been removed. Leads overlie the patient. Impression: No acute thoracic findings.
== END 2017-10-14 02:21 | disposition home or self-care (01) ==
LOC: ER 21:30
DX: R07.89 Other chest pain (principal); R09.81 Nasal congestion; J34.89 Other specified disorders of nose and nasal sinuses; R06.02 Shortness of breath; E11.9 Type 2 diabetes mellitus without complications; E78.00 Pure hypercholesterolemia, unspecified; I10 Essential (primary) hypertension; Z96.651 Presence of right artificial knee joint; Z90.710 Acquired absence of both cervix and uterus; Z90.12 Acquired absence of left breast and nipple; Z88.8 Allergy status to other drugs, medicaments and biological substances
CPT/HCPCS: 36415; 71010; 80053; 83880; 84484; 85025; 87804; 93005; 94640; 96361; 96374; 96375; 99285; J2405; J3010; J7030; J7512; J7613

== ENCOUNTER → 2017-10-28 | Outpatient (CLI) | payer MEDICARE | END | disposition home or self-care (01) | LOC: US 06:13 | DX: K76.0 Fatty (change of) liver, not elsewhere classified (principal); R16.0 Hepatomegaly, not elsewhere classified; R14.0 Abdominal distension (gaseous); Z90.49 Acquired absence of other specified parts of digestive tract; Z90.710 Acquired absence of both cervix and uterus | CPT/HCPCS: 76700; 76856 ==

== ENCOUNTER → 2018-03-07 | Outpatient (CLI) | payer MEDICARE ==
[2018-03-07 07:59] LABS: CREATININE 1.7 mg/dL (0.6-1.0); GFR 30.1
[2018-03-07 07:59] LABS: BLOOD UREA NITROGEN 36 mg/dL (7-20)
== END | disposition home or self-care (01) ==
LOC: CT 07:11
DX: R41.82 Altered mental status, unspecified (principal); Z85.3 Personal history of malignant neoplasm of breast
CPT/HCPCS: 36415; 70450; 82565; 84520

== ENCOUNTER → 2018-05-04 | Outpatient (CLI) | payer MEDICARE | END | disposition home or self-care (01) | LOC: RAD 11:59 | DX: C50.912 Malignant neoplasm of unspecified site of left female breast (principal); I70.0 Atherosclerosis of aorta; I10 Essential (primary) hypertension; E11.9 Type 2 diabetes mellitus without complications; E78.5 Hyperlipidemia, unspecified; E78.00 Pure hypercholesterolemia, unspecified; K21.9 Gastro-esophageal reflux disease without esophagitis; R06.00 Dyspnea, unspecified | CPT/HCPCS: 71046 ==

== ENCOUNTER → 2018-05-24 | Outpatient (CLI) | payer MEDICARE | END | disposition home or self-care (01) | LOC: ECHO 08:20 | DX: R06.00 Dyspnea, unspecified (principal); I10 Essential (primary) hypertension; E78.5 Hyperlipidemia, unspecified; E11.9 Type 2 diabetes mellitus without complications; E78.00 Pure hypercholesterolemia, unspecified; D64.81 Anemia due to antineoplastic chemotherapy; E03.9 Hypothyroidism, unspecified; K21.9 Gastro-esophageal reflux disease without esophagitis; Z87.891 Personal history of nicotine dependence | CPT/HCPCS: 93306 ==

== ENCOUNTER → 2018-06-19 | Outpatient (CLI) | payer MEDICARE ==
[~2018-06-19] MED LIST changes: -METF-620 PO; +METF10003 PO
--- NOTE | 2018-06-19 14:33 | RESP ---
DATE OF SERVICE: 06/19/2018 ATTENDING PHYSICIAN: Chantelle Mcdaniel MD. The patient's FVC was 3.46, which is 102% predicted; FEV1 2.80, which is 108% predicted. FEV1/FVC ratio was normal. No bronchodilators were given. Lung volume showed a total lung capacity of 142% predicted. The residual volume 217% predicted. Diffusion capacity 113% predicted. IMPRESSION: 1. No evidence of any obstructive airway disease. 2. Lung volumes consistent with hyperinflation. 3. Normal diffusion capacity. 4. No bronchodilators given. YAJAIRA HARVEY MD DR: JEREMY/naresh JOB#: [id number] / [id number]
== END | disposition home or self-care (01) ==
LOC: EKG 08:08
PROVIDERS: ATTEND Family Medicine
DX: I49.9 Cardiac arrhythmia, unspecified (principal); E11.9 Type 2 diabetes mellitus without complications; E78.5 Hyperlipidemia, unspecified; E78.00 Pure hypercholesterolemia, unspecified; J45.909 Unspecified asthma, uncomplicated; E03.9 Hypothyroidism, unspecified; Z85.3 Personal history of malignant neoplasm of breast; Z86.2 Personal history of diseases of the blood and blood-forming organs and certain disorders involving the immune mechanism; Z87.891 Personal history of nicotine dependence; Z86.39 Personal history of other endocrine, nutritional and metabolic disease; Z87.39 Personal history of other diseases of the musculoskeletal system and connective tissue; Z86.69 Personal history of other diseases of the nervous system and sense organs; Z90.711 Acquired absence of uterus with remaining cervical stump; Z90.49 Acquired absence of other specified parts of digestive tract; Z90.12 Acquired absence of left breast and nipple; Z90.710 Acquired absence of both cervix and uterus; Z88.8 Allergy status to other drugs, medicaments and biological substances; Z80.3 Family history of malignant neoplasm of breast
CPT/HCPCS: 94010; 94729

== ENCOUNTER 2019-01-24 20:06 | Emergency (ER) | payer MEDICARE ==
[~2019-01-24] VITALS: Ht 167.6 cm; Wt 84.8 kg
[~2019-01-24 20:06] MED LIST changes: -GABA-586 PO; +GABA300C18 PO; +HYDR-3164 PO; -HYDR-971 PO; -METF10003 PO; +METF10007 PO; -OXYC-323 PO; +OXYC1TAB15 PO
[2019-01-24 20:28] VITALS: BP 151/82
[2019-01-24] MEDS ORDERED: OXYC1TAB15 PO (23:08)
[2019-01-24] MEDS ORDERED: ORPH100T PO (23:08)
--- NOTE | 2019-01-24 23:08 | PHYS DOC ---
Past Medical History Past Medical History: Cancer, Diabetes-Type II, High Cholesterol, Hypertension , Unknown Additional Past Medical Histor: breast ca, neuropathy,L drop foot Past Surgical History: Cancer Surgery, Hysterectomy, Knee Replacement, Other Additional Past Surgical Histo: left mastectomy, back x3, pin in toe, right knee replacement Alcohol Use: Rarely Drug Use: None Adult General Chief Complaint Chief Complaint: UPPER EXTREMITY PAIN HPI HPI Patient is a 68 year old female presents to the ED with right arm, right shoulder, and low back pain. Patient said this started after she fell one week ago while getting on a chair. She hit her low back and head first followed by her right arm and shoulder on the way down. Moving her shoulder joint in any direction causes pain and it makes her symptoms worse. Her right shoulder pain is 8/10 sharp pain that radiates down the posterior arm. Her low back pain as a 6/10 sharp pain which is worsened by movement. Patient has tried ice packs and [place] which did not help. She has chronic low back pain which is why she is on [place]. Symptoms do not very per time of day. Review of Systems Review of Systems Constitutional: Denies fever or chills [] Eyes: Denies change in visual acuity, redness, or eye pain [] HENT: Denies nasal congestion or sore throat [] Respiratory: Denies cough or shortness of breath [] Cardiovascular: Denies chest pain or palpitations. GI: Denies abdominal pain, nausea, vomiting, bloody stools or diarrhea [] : Denies dysuria or hematuria [] Musculoskeletal: Admits right shoulder pain and low back pain Integument: Denies rash or skin lesions [] Neurologic: Denies headache, focal weakness or sensory changes [] Complete systems were reviewed and found to be within normal limits, except as documented in this note. Current Medications Current Medications Current Medications Medications (Trade) Dose Ordered Sig/Avi Start Time Stop Time Status Last Admin Dose Admin Cyclobenzaprine HCl (Flexeril) 10 mg 1X ONCE 01/24/19 23:15 01/24/19 23:16 DC 01/24/19 23:23 10 MG Oxycodone/ Acetaminophen (Percocet 5/325) 1 tab 1X ONCE 01/24/19 23:15 01/24/19 23:16 DC 01/24/19 23:22 1 TAB Allergies Allergies Allergies Coded Allergies Type Severity Reaction Last Updated Verified simvastatin Adverse Reaction Intermediate MUSCLE CRAMPING 07/27/18 Yes Physical Exam Physical Exam Constitutional: Well developed, well nourished, no acute distress, non-toxic appearance. [] HENT: Normocephalic, atraumatic, nose normal. [] Eyes: PERRL, EOMI, conjunctiva normal, no discharge. [] Neck: Normal range of motion, no tenderness, supple, no stridor. [] Cardiovascular: Heart rate regular rhythm, no murmur [] Lungs & Thorax: Bilateral breath sounds clear to auscultation [] Abdomen: Bowel sounds normal, soft, no tenderness, no masses, no pulsatile masses. [] Skin: Warm, dry, no erythema, no rash. [] Back: Paraspinal tenderness to palpation in lumbar region bilaterally. No CVA tenderness. [] Extremities: Patient has guarding of the right arm. Not tender to palpation. Pain with movement of the shoulder joint in all planes. No cyanosis, no clubbing , no edema. [] Neurologic: Alert and oriented, normal motor function, normal sensory function, no focal deficits noted. [] Psychologic: Affect normal, judgement normal, mood normal. [] Current Patient Data Vital Signs Vital Signs Date Time Temp Pulse Resp B/P (MAP) Pulse Ox O2 Delivery O2 Flow Rate FiO2 01/24/19 20:28 97.8 87 16 151/82 (105) 98 Room Air 97.8 EKG EKG [] Radiology/Procedures Radiology/Procedures [] Course & Med Decision Making Course & Med Decision Making Pertinent Labs and Imaging studies reviewed. (See chart for details) Patient is a 68-year-old female presents to the ED with right arm and shoulder pain after fall. Given clinical picture and nontender to palpation, fracture is unlikely. She degrees with this. Discharged patient to home with prescription for Oxy, ice pack, and cyclobenzaprine. Instructed to follow-up with PCP within one to 2 weeks. Dragon Disclaimer Dragon Disclaimer This electronic medical record was generated, in whole or in part, using a voice recognition dictation system. Departure Departure Impression: Primary Impression: Right shoulder strain Disposition: HOME, SELF-CARE Condition: STABLE Referrals: ZAYRA DISLA MD (PCP) IMELDA HSIEH MD Patient Instructions: Fall Prevention and Home Safety, [id number], Shoulder Sprain Scripts Oxycodone/Apap 5-325 (PERCOCET 5-325 MG TABLET ) 1 Each Tablet 1 TAB PO PRN Q6HRS PRN for PAIN, #4 TAB 0 Refills Prov: KB RICHMOND DO 01/24/19 Orphenadrine Citrate (ORPHENADRINE CITRATE) 100 Mg Tablet.er 1 TAB PO BID PRN for MUSCLE PAIN, #14 TAB 0 Refills Prov: KB RICHMOND DO 01/24/19 Problem Qualifiers Primary Impression: Right shoulder strain Encounter type: initial encounter Qualified Codes: S46.911A - Strain of unspecified muscle, fascia and tendon at shoulder and upper arm level, right arm , initial encounter KB RICHMOND DO Jan 24, 2019 23:08
[2019-01-24] MEDS ORDERED: CYCLOBENZAPRINE 10 MG TABLET. PO ONE (23:15)
[2019-01-24] MEDS ORDERED: oxyCODONE/APAP 5/325 1 TAB TABLET PO ONE (23:15)
== END 2019-01-24 23:26 | disposition home or self-care (01) ==
LOC: ER 20:06
DX: S46.911A Strain of unspecified muscle, fascia and tendon at shoulder and upper arm level, right arm, initial encounter (principal); M54.5 Low back pain; E78.00 Pure hypercholesterolemia, unspecified; I10 Essential (primary) hypertension; E11.40 Type 2 diabetes mellitus with diabetic neuropathy, unspecified; Z88.8 Allergy status to other drugs, medicaments and biological substances; W18.09XA Striking against other object with subsequent fall, initial encounter; Y93.89 Activity, other specified; Y92.89 Other specified places as the place of occurrence of the external cause; Y99.8 Other external cause status
CPT/HCPCS: 99284

== ENCOUNTER → 2019-04-11 | Outpatient (CLI) | payer MEDICARE ==
[~2019-04-11] MED LIST changes: +ORPH100T PO
--- NOTE | 2019-04-11 09:15 | CARD ---
MR#: [id number] Date of Study: 04/11/2019 Ordering Physician: SINTIA MEDINA, Referring Physician: SINTIA MEDINA, Tech: Rosy Barnes [facility] APPROVED REPORT EXAM: Two-dimensional and M-mode echocardiogram with Doppler and color Doppler. Other Information Quality : AverageHR: 80bpm Rhythm : NSRTechnically limited study due to body habitus. INDICATION Hypertension/HCVD 2D DIMENSIONS RVDd2.9 (2.9-3.5cm)Left Atrium(2D)2.7 (1.6-4.0cm) IVSd1.2 (0.7-1.1cm)Aortic Root(2D)2.7 (2.0-3.7cm) LVDd4.4 (3.9-5.9cm)LVOT Diameter1.9 (1.8-2.4cm) PWd0.9 (0.7-1.1cm)LVDs3.1 (2.5-4.0cm) FS (%) 28.7 %SV48.9 ml LVEF(%)55.4 (>50%) M-Mode DIMENSIONS Left Atrium(MM)2.81 (2.5-4.0cm)Aortic Root2.93 (2.2-3.7cm) Aortic Valve AoV Peak Hieu.204.2cm/sAoV VTI35.9cm AO Peak GR.16.7mmHgLVOT Peak Hieu.108.3cm/s AO Mean GR.9mmHgAVA (VMAX)1.54cm2 MONICA (VTI)1.60cm2 Mitral Valve MV E Ggsnocqb17.4cm/sMV DECEL [id number] MV A Fytzhtiy27.0cm/sE/A Ratio1.0 Pulmonary Valve PV Peak Uhzlgbux233.2cm/s Pulmonary Vein S1 Sjfbuobi08.7cm/sD2 Ftqnsvka03.1cm/s LEFT VENTRICLE The left ventricle is normal size. There is normal left ventricular wall thickness. The left ventricu lar systolic function is normal and the ejection fraction is within normal range. The Ejection Fracti on is 55-60%. There is normal LV segmental wall motion. Transmitral Doppler flow pattern is Grade I-a bnormal relaxation pattern. RIGHT VENTRICLE The right ventricle is normal size. There is normal right ventricular wall thickness. The right ventr icular systolic function is normal. ATRIA The left atrium size is normal. The right atrium size is normal. The interatrial septum is intact wit h no evidence for an atrial septal defect or patent foramen ovale as noted on 2-D or Doppler imaging. AORTIC VALVE The aortic valve is not well visualized. Doppler and Color Flow revealed no significant aortic regurg itation. There is mild valvular aortic stenosis. Calculated aortic valve area is 1.5 cm2 with maximum pressure gradient of 17 mmHg and mean pressure gradient of 9 mmHg. MITRAL VALVE The mitral valve is normal in structure and function. There is no evidence of mitral valve prolapse. There is no mitral valve stenosis. Doppler and Color-flow revealed trace mitral regurgitation. TRICUSPID VALVE The tricuspid valve is normal in structure and function. Doppler and Color Flow revealed no tricuspid valve regurgitation noted. There is no tricuspid valve prolapse or vegetation. There is no tricuspid valve stenosis. PULMONIC VALVE Doppler and Color Flow revealed trace pulmonic valvular regurgitation. There is no pulmonic valvular stenosis. GREAT VESSELS The aortic root is normal in size. The ascending aorta is normal in size. The IVC is normal in size a nd collapses >50% with inspiration. PERICARDIAL EFFUSION There is no evidence of significant pericardial effusion. Critical Notification Critical Value: No <Conclusion> There is mild valvular aortic stenosis. Calculated aortic valve area is 1.5 cm2 with maximum pressur e gradient of 17 mmHg and mean pressure gradient of 9 mmHg. The left ventricular systolic function is normal and the ejection fraction is within normal range. The Ejection Fraction is 55-60%. Signed by : Sintia Medina, Electronically Approved : 04/11/2019 09:15:32
== END | disposition home or self-care (01) ==
LOC: ECHO 07:45
PROVIDERS: ATTEND Internal Medicine Cardiovascular Disease
DX: I35.0 Nonrheumatic aortic (valve) stenosis (principal); I35.9 Nonrheumatic aortic valve disorder, unspecified; I10 Essential (primary) hypertension
CPT/HCPCS: 93306

== ENCOUNTER 2019-07-28 12:34 | Emergency (ER) | payer MEDICARE ==
[~2019-07-28] VITALS: Ht 167.6 cm; Wt 88.5 kg
[~2019-07-28 12:34] MED LIST changes: -GLIM4TAB2 PO; +GLIM4TAB4 PO; +LISI1TAB20 PO; -LISI1TAB7 PO
[2019-07-28 13:15] LABS: BASO # 0.1 x10^3/uL (0.0-0.2); BASO % 1 % (0-3); EOS # 0.1 x10^3/uL (0.0-0.7); EOS % 2 % (0-3); HEMATOCRIT 37.7 % (36.0-47.0); HEMOGLOBIN 13.2 g/dL (12.0-15.5); LYMPH # 0.8 x10^3/uL (1.0-4.8); LYMPH % 13 % (24-48); MEAN CORPUSCULAR HEMOGLOBIN 32 pg (25-35); MEAN CORPUSCULAR HGB CONC 35 g/dL (31-37); MEAN CORPUSCULAR VOLUME 93 fL (79-100); MONO # 0.3 x10^3/uL (0.0-1.1); MONO % 5 % (0-9); NEUT # 5.3 x10^3/uL (1.8-7.7); NEUT % 80 % (31-73); PLATELET COUNT 261 x10^3/uL (140-400); RED BLOOD COUNT 4.07 x10^6/uL (3.50-5.40); RED CELL DISTRIBUTION WIDTH 15.2 % (11.5-14.5); WHITE BLOOD COUNT 6.7 x10^3/uL (4.0-11.0)
[2019-07-28] MEDS ORDERED: IV NORMAL SALINE 1000ML BAG 1,000 ML IV ONE (13:15)
[2019-07-28] MEDS ORDERED: MORPHINE SULFATE 4 MG/ML VIAL. IV ONE (13:15)
[2019-07-28] MEDS ORDERED: ONDANSETRON PF 4 MG/2 ML VIAL. IV ONE (13:15)
[2019-07-28 13:23] LABS: CREATININE 1.5 mg/dL (0.6-1.0); GFR 34.6; POTASSIUM 4.2 mmol/L (3.5-5.1)
[2019-07-28 13:29] LABS: ALBUMIN 3.9 g/dL (3.4-5.0); MAGNESIUM 1.5 mg/dL (1.8-2.4); TOTAL BILIRUBIN 0.7 mg/dL (0.2-1.0); TOTAL PROTEIN 7.8 g/dL (6.4-8.2)
--- NOTE | 2019-07-28 13:56 | RAD ---
EXAM: Abdomen and pelvis CT without intravenous contrast. HISTORY: Left abdominal pain. Constipation. TECHNIQUE: Computed tomographic images of the abdomen and pelvis were obtained without contrast. Multiplanar reformatting was performed. *One or more of the following individualized dose reduction techniques were utilized for this examination: 1. Automated exposure control. 2. Adjustment of the mA and/or kV according to patient size. 3. Use of iterative reconstruction technique. COMPARISON: 11/14/2014. FINDINGS: Evaluation of the lower thorax demonstrates no infiltrate or pleural effusion. The heart is normal in size. There are 3 small hypodense lesions within the liver, the largest of which is seen within the right hepatic lobe measuring 1.8 cm. The gallbladder is surgically absent. The pancreas, spleen and adrenal glands are unremarkable. The kidneys are unremarkable. There is no appendicitis. There is no bowel obstruction. There is no abnormal bowel wall thickening. The uterus is surgically absent. The urinary bladder is unremarkable. There is no lymphadenopathy. There is aortic and aortic branch vessel atherosclerosis. There is instrumented and noninstrumented fusion with laminectomy decompression at L3-S1. There is a mild chronic appearing compression fracture of T12. There is a suspected broad-based posterior central disc protrusion with right paracentral inferior extrusion contributing to right foraminal and central canal stenosis at T11-T12. IMPRESSION: 1. No acute abdominal or pelvic finding. 2. 3 small hypodense lesions within the liver, not appreciably changed compared to the prior CT dated 11/14/2014. The absence of interval change favors a benign etiology such as cysts. Electronically signed by: Rani Cherry MD (07/28/2019 1:53 PM) [facility]
--- NOTE | 2019-07-28 14:06 | PHYS DOC ---
Past Medical History Past Medical History: Cancer, Diabetes-Type II, High Cholesterol, Hypertension, Unknown Additional Past Medical Histor: breast ca, neuropathy,L drop foot Past Surgical History: Cancer Surgery, Hysterectomy, Knee Replacement, Other Additional Past Surgical Histo: left mastectomy, back x3, pin in toe, right knee replacement Alcohol Use: None Drug Use: None Adult General Chief Complaint Chief Complaint: NAUSEA/VOMITING/DIARRHA HPI HPI Patient is a 68 year old female who presents to the ER with complaints of left upper and left lower abdominal pain with nausea and dry heaves for the last 5 days. She reports a decreased appetite and recent constipation. Her last BM was 2 days ago, she denies any diarrhea or bloody stools. Pt denies any dysuria, hematuria, or increased urinary frequency. PT currently rates her pain a 7/10 on the pain scale. Pt's sister at the bedside reports that the patient's unexpectedly a month ago today. Review of Systems Review of Systems Constitutional: Denies fever or chills [] Eyes: Denies change in visual acuity, redness, or eye pain [] HENT: Denies nasal congestion or sore throat [] Respiratory: Denies cough or shortness of breath [] Cardiovascular: No additional information not addressed in HPI [] GI: see HPI : Denies dysuria or hematuria [] Musculoskeletal: Denies back pain or joint pain [] Integument: Denies rash or skin lesions [] Neurologic: Denies headache, focal weakness or sensory changes [] Endocrine: Denies polyuria or polydipsia [] Complete systems were reviewed and found to be within normal limits, except as documented in this note. Current Medications Current Medications Current Medications Medications (Trade) Dose Ordered Sig/Avi Start Time Stop Time Status Last Admin Dose Admin Lorazepam (Ativan Inj) 1 mg 1X ONCE 07/28/19 13:15 07/28/19 13:16 DC 07/28/19 13:13 1 MG Morphine Sulfate (Morphine Sulfate) 4 mg 1X ONCE 07/28/19 13:15 07/28/19 13:16 DC 07/28/19 13:13 4 MG Ondansetron HCl (Zofran) 4 mg 1X ONCE 07/28/19 13:15 07/28/19 13:16 DC 07/28/19 13:13 4 MG Sodium Chloride 1,000 ml @ 1,000 mls/hr 1X ONCE 07/28/19 13:15 07/28/19 14:14 DC 07/28/19 13:12 1,000 MLS/HR Allergies Allergies Allergies Coded Allergies Type Severity Reaction Last Updated Verified simvastatin Adverse Reaction Intermediate MUSCLE CRAMPING 07/27/18 Yes Physical Exam Physical Exam Constitutional: Well developed, well nourished, moderate distress, non-toxic appearance. [] HENT: Normocephalic, atraumatic, bilateral external ears normal, oropharynx moist, no oral exudates, nose normal. [] Eyes: PERRLA, EOMI, conjunctiva normal, no discharge. [] Neck: Normal range of motion, no stridor. [] Cardiovascular:Heart rate regular rhythm, no murmur [] Lungs & Thorax: Bilateral breath sounds clear to auscultation [] Abdomen: Bowel sounds normal, soft, LUQ and LLQ TTP, no guarding, no rebound tenderness, no masses, no pulsatile masses. [] Skin: Warm, dry, no erythema, no rash. [] Back: No tenderness, no CVA tenderness. [] Extremities: No cyanosis, no clubbing, ROM intact, no edema. [] Neurologic: Alert and oriented X 3, no focal deficits noted. [] Psychologic: Affect anxious, judgement normal, mood tearful[] Current Patient Data Vital Signs Vital Signs Date Time Temp Pulse Resp B/P (MAP) Pulse Ox O2 Delivery O2 Flow Rate FiO2 07/28/19 15:15 81 16 147/65 (92) 96 Room Air 07/28/19 12:42 98.2 98.2 Lab Values Laboratory Tests Test 07/28/19 13:00 07/28/19 14:07 White Blood Count 6.7 x10^3/uL (4.0-11.0) Red Blood Count 4.07 x10^6/uL (3.50-5.40) Hemoglobin 13.2 g/dL (12.0-15.5) Hematocrit 37.7 % (36.0-47.0) Mean Corpuscular Volume 93 fL (79-100) Mean Corpuscular Hemoglobin 32 pg (25-35) Mean Corpuscular Hemoglobin Concent 35 g/dL (31-37) Red Cell Distribution Width 15.2 % (11.5-14.5) H Platelet Count 261 x10^3/uL (140-400) Neutrophils (%) (Auto) 80 % (31-73) H Lymphocytes (%) (Auto) 13 % (24-48) L Monocytes (%) (Auto) 5 % (0-9) Eosinophils (%) (Auto) 2 % (0-3) Basophils (%) (Auto) 1 % (0-3) Neutrophils # (Auto) 5.3 x10^3/uL (1.8-7.7) Lymphocytes # (Auto) 0.8 x10^3/uL (1.0-4.8) L Monocytes # (Auto) 0.3 x10^3/uL (0.0-1.1) Eosinophils # (Auto) 0.1 x10^3/uL (0.0-0.7) Basophils # (Auto) 0.1 x10^3/uL (0.0-0.2) Sodium Level 137 mmol/L (136-145) Potassium Level 4.2 mmol/L (3.5-5.1) Chloride Level 101 mmol/L (98-107) Carbon Dioxide Level 24 mmol/L (21-32) Anion Gap 12 (6-14) Blood Urea Nitrogen 17 mg/dL (7-20) Creatinine 1.5 mg/dL (0.6-1.0) H Estimated GFR (Cockcroft-Gault) 34.6 BUN/Creatinine Ratio 11 (6-20) Glucose Level 181 mg/dL (70-99) H Calcium Level 10.0 mg/dL (8.5-10.1) Magnesium Level 1.5 mg/dL (1.8-2.4) L Total Bilirubin 0.7 mg/dL (0.2-1.0) Aspartate Amino Transferase (AST) 34 U/L (15-37) Alanine Aminotransferase (ALT) 35 U/L (14-59) Alkaline Phosphatase 42 U/L (46-116) L Total Protein 7.8 g/dL (6.4-8.2) Albumin 3.9 g/dL (3.4-5.0) Albumin/Globulin Ratio 1.0 (1.0-1.7) Lipase 136 U/L (73-393) Urine Collection Type Unknown Urine Color Yellow Urine Clarity Clear Urine pH 7.0 Urine Specific [place] 1.010 Urine Protein Negative mg/dL (NEG-TRACE) Urine Glucose (UA) Negative mg/dL (NEG) Urine Ketones (Stick) Negative mg/dL (NEG) Urine Blood Negative (NEG) Urine Nitrite Positive (NEG) Urine Bilirubin Negative (NEG) Urine Urobilinogen Dipstick 0.2 mg/dL (0.2 mg/dL) Urine Leukocyte Esterase Trace (NEG) Urine RBC 0 /HPF (0-2) Urine WBC 1-4 /HPF (0-4) Urine Squamous Epithelial Cells Mod /LPF Urine Bacteria Many /HPF (0-FEW) Urine Hyaline Casts Few /HPF Urine Mucus Slight /LPF Laboratory Tests 07/28/19 13:00 Laboratory Tests 07/28/19 13:00 EKG EKG [] Radiology/Procedures Radiology/Procedures PROCEDURE: CT ABDOMEN PELVIS WO CONTRAST EXAM: Abdomen and pelvis CT without intravenous contrast. HISTORY: Left abdominal pain. Constipation. TECHNIQUE: Computed tomographic images of the abdomen and pelvis were obtained without contrast. Multiplanar reformatting was performed. *One or more of the following individualized dose reduction techniques were utilized for this examination: 1. Automated exposure control. 2. Adjustment of the mA and/or kV according to patient size. 3. Use of iterative reconstruction technique. COMPARISON: 11/14/2014. FINDINGS: Evaluation of the lower thorax demonstrates no infiltrate or pleural effusion. The heart is normal in size. There are 3 small hypodense lesions within the liver, the largest of which is seen within the right hepatic lobe measuring 1.8 cm. The gallbladder is surgically absent. The pancreas, spleen and adrenal glands are unremarkable. The kidneys are unremarkable. There is no appendicitis. There is no bowel obstruction. There is no abnormal bowel wall thickening. The uterus is surgically absent. The urinary bladder is unremarkable. There is no lymphadenopathy. There is aortic and aortic branch vessel atherosclerosis. There is instrumented and noninstrumented fusion with laminectomy decompression at L3-S1. There is a mild chronic appearing compression fracture of T12. There is a suspected broad-based posterior central disc protrusion with right paracentral inferior extrusion contributing to right foraminal and central canal stenosis at T11-T12. IMPRESSION: 1. No acute abdominal or pelvic finding. 2. 3 small hypodense lesions within the liver, not appreciably changed compared to the prior CT dated 11/14/2014. The absence of interval change favors a benign etiology such as cysts. [] Course & Med Decision Making Course & Med Decision Making Pertinent Labs and Imaging studies reviewed. (See chart for details) dx: Nausea and vomiting; abdominal pain CBC unremarkable, CMP: glucose 181, Human Resource Analyst 1.5 (history of elevated Human Resource Analyst), MG 1.5 otherwise unremarkable, UA unremarkable CT abd/pel no acute findings, no diverticulitis or SBO Pt was given 1L of NS, 4 mg of zofran, 4 mg of morphine, and 0.5 mg of Ativan, reports feeling better after medications. Pt encouraged to follow up with PCP this week, clear fluids x24 hours then advance as tolerated starting with bland foods. Return to the ER if symptoms worsen. Patient verbalized an understanding of home care, medications, follow-up, and return to ED instructions and was in agreement with the plan of care. [] Dragon Disclaimer Dragon Disclaimer This electronic medical record was generated, in whole or in part, using a voice recognition dictation system. Departure Departure Impression: Primary Impression: Abdominal pain Additional Impression: Nausea & vomiting Disposition: 01 HOME, SELF-CARE Condition: STABLE Referrals: SALUD PASCUAL MD (PCP) Patient Instructions: Abdominal Pain (Nonspecific), Nausea and Vomiting, [id number] Additional Instructions: Fill prescriptions and use them as directed. Recommend clear fluids for the next 24 hours. Then you may advance to bland foods such as bananas, rice, a pplesauce, and dry toast. Follow-up with your primary care doctor in the next 1- 2 days. Return to the emergency room if your symptoms worsen. Scripts Ondansetron (ONDANSETRON ODT) 4 Mg Tab.rapdis 1 TAB PO PRN Q6-8HRS PRN for NAUSEA/VOMITING, #16 TAB 0 Refills Prov: MIKAYLA FRAZIER MARSHMALLOW MACHINE OPERATOR 07/28/19 Problem Qualifiers Primary Impression: Abdominal pain Abdominal location: left lower quadrant Qualified Codes: R10.32 - Left lower quadrant pain Additional Impression: Nausea & vomiting Vomiting type: unspecified Vomiting Intractability: non-intractable Qualified Codes: R11.2 - Nausea with vomiting, unspecified MIKAYLA FRAZIER MARSHMALLOW MACHINE OPERATOR Jul 28, 2019 14:05
[2019-07-28 14:16] LABS: BILIRUBIN,URINE NEGATIVE (NEG); CLARITY,URINE CLEAR; COLOR,URINE YELLOW; NITRITE,URINE POSITIVE (NEG); PROTEIN,URINE NEGATIVE (NEG-TRACE); UROBILINOGEN,URINE 0.2 mg/dL (0.2 mg/dL)
[2019-07-28 14:41] LABS: HYALINE CASTS, URINE FEW /HPF; SQUAMOUS EPITHELIAL CELL,UR MOD /LPF
[2019-07-28 14:42] LABS: BACTERIA,URINE MANY /HPF (0-FEW); RBC,URINE 0 /HPF (0-2)
[2019-07-28 15:15] VITALS: BP 147/65
[2019-07-28] MEDS ORDERED: ONDA4TAB12 PO (15:26)
== END 2019-07-28 15:32 | disposition home or self-care (01) ==
LOC: ER 12:34
DX: R10.32 Left lower quadrant pain (principal); R10.31 Right lower quadrant pain; R11.2 Nausea with vomiting, unspecified; I10 Essential (primary) hypertension; E78.00 Pure hypercholesterolemia, unspecified; E11.40 Type 2 diabetes mellitus with diabetic neuropathy, unspecified; Z85.3 Personal history of malignant neoplasm of breast; Z90.12 Acquired absence of left breast and nipple; Z96.651 Presence of right artificial knee joint; Z90.710 Acquired absence of both cervix and uterus; Z88.8 Allergy status to other drugs, medicaments and biological substances
CPT/HCPCS: 36415; 74176; 80053; 81001; 83690; 83735; 85025; 87086; 96361; 96374; 96375; 99285; J2060; J2270; J2405; J7030; 87186

== ENCOUNTER → 2019-08-30 | Outpatient (CLI) | payer MEDICARE ==
[~2019-08-30] MED LIST changes: +ONDA4TAB12 PO
--- NOTE | 2019-08-30 12:57 | RAD ---
CT CHEST WO CONTRAST History: Left breast cancer Technique: Noncontrast CT of the chest was performed. Coronal and sagittal reconstructions were performed. Exposure: One or more of the following individualized dose reduction techniques were utilized for this examination: 1. Automated exposure control 2. Adjustment of the mA and/or kV according to patient size 3. Use of iterative reconstruction technique. Comparison: December 06, 2016. Findings: Chest: Left axillary region scarring. Left mastectomy. No pathologic axillary, mediastinal or hilar adenopathy. Coronary artery calcifications. Right upper lobe 2 mm pulmonary nodule (series 3 image 1024), unchanged, likely benign given stability over time. Left anterior upper lobe groundglass and reticular opacities, likely related to prior radiation. Left lower lobe calcified granuloma. No focal consolidation or pleural effusion. Mild centrilobular emphysema. Upper abdomen: Right inferior and left medial hepatic hypodensities, unchanged. Prior cholecystectomy. Bones: Chronic left-sided rib fractures. Chronic T12 mild superior endplate compression fracture Impression: 1. No evidence of metastatic disease within the chest. 2. Hepatic hypodensities, unchanged. 3. Chronic T12 superior endplate compression fracture. Electronically signed by: Mian Carlos DO (08/30/2019 12:54 PM) [facility]
--- NOTE | 2019-08-30 14:31 | RAD ---
Nuclear medicine whole body bone scan History: Left breast cancer. Left mastectomy. Chest and arm pain x2 weeks. Comparison: CT chest without contrast, 08/30/2019. CT abdomen and pelvis without contrast, July 28, 2019. Technique: Examination performed after intravenous administration of 26 mCi Technetium 99m MDP. Images of the whole body were obtained in the anterior and posterior projections. Findings: Tracer uptake in the spine is mildly heterogeneous. Increased tracer uptake right lateral in the mid cervical spine and in the midline near the cervicothoracic junction may be degenerative. Mild tracer uptake along the inner curvature of the lumbar spine at the level of L2/L3 is degenerative in correlation with CT. There is symmetric periarticular tracer uptake of the shoulders and sternoclavicular joints that is likely degenerative. There is increased tracer uptake localizing to the compression fracture at the superior endplate of T12. The tracer uptake suggests that the fracture may be subacute. There is right knee arthroplasty without abnormal tracer uptake. There is increased tracer uptake in the feet, nonspecific. No abnormal tracer uptake of ribs. Pelvic bone uptake appears symmetric. Tracer distribution in the soft tissues appears normal. IMPRESSION: 1. No scintigraphic evidence of bone metastasis. 2. Increased tracer uptake of the compression fracture at the superior endplate of T12 suggests the fracture may be subacute. Electronically signed by: Azael Chavez MD (08/30/2019 2:28 PM) [id number]
== END | disposition home or self-care (01) ==
LOC: NM 07:29
PROVIDERS: ATTEND Internal Medicine Hematology & Oncology
DX: C50.112 Malignant neoplasm of central portion of left female breast (principal); J43.2 Centrilobular emphysema; M48.54XA Collapsed vertebra, not elsewhere classified, thoracic region, initial encounter for fracture; R91.1 Solitary pulmonary nodule; I25.10 Atherosclerotic heart disease of native coronary artery without angina pectoris; J84.10 Pulmonary fibrosis, unspecified; I10 Essential (primary) hypertension; Z90.49 Acquired absence of other specified parts of digestive tract; Z90.12 Acquired absence of left breast and nipple; Z79.01 Long term (current) use of anticoagulants
CPT/HCPCS: 71250; 78306; A9503

== ENCOUNTER → 2019-09-11 | Outpatient (CLI) | payer MEDICARE ==
--- NOTE | 2019-09-11 16:01 | KCIC ---
Bone mineral density exam left forearm and left hip History: Diabetes, hyperthyroidism, history of steroid use, use of loop diuretics and thyroid medication, postmenopausal, hysterectomy Comparison: Exam of the left hip 02/22/2017 Findings: Bone mineral density examination utilizing DEXA was performed. Left hip bone mineral density of 0.922 g/cm2 corresponds with a T score -0.2, Z score 1.2. Compared with the previous exam there has been -6.3% decrease. The bone mineral density of the left forearm was 0.484 g/cm2 which corresponds with a T-score of -1.6, Z score 0.4. By World Congress on Osteoporosis criteria, a T score of 0 to-1 SD is considered to be within normal limits. A T score of -1 to -2.5 SD is considered osteopenia. A T score less than -2.5 SD is considered osteoporosis Impression: 1. There is osteopenia of the left forearm. Bone mineral density of the left hip is within normal limits. Electronically signed by: Jam Burnham MD (09/11/2019 3:58 PM) [id number]
== END | disposition home or self-care (01) ==
LOC: KCIC DEXA 09:13
PROVIDERS: ATTEND Internal Medicine Hematology & Oncology
DX: Z13.820 Encounter for screening for osteoporosis (principal); M85.88 Other specified disorders of bone density and structure, other site; N95.9 Unspecified menopausal and perimenopausal disorder; C50.919 Malignant neoplasm of unspecified site of unspecified female breast; E11.9 Type 2 diabetes mellitus without complications; E03.9 Hypothyroidism, unspecified; Z90.710 Acquired absence of both cervix and uterus
CPT/HCPCS: 77080; 77081

== ENCOUNTER → 2020-02-12 | Outpatient (CLI) | payer MEDICARE ==
[~2020-02-12] MED LIST changes: -GLIM4TAB4 PO; +GLIM4TAB8 PO
--- NOTE | 2020-02-12 11:37 | KCIC ---
WRIST 3V RIGHT INDICATION: Right wrist pain, bump along the radial aspect of the wrist COMPARISON: None. FINDINGS: No acute fracture. Advanced lunotriquetral arthrosis. There appear to be erosive changes of the triquetrum. Calcific densities are seen adjacent to the ulnar styloid process. 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 Soft tissue density is seen adjacent to the distal radius. No radiopaque foreign body. IMPRESSION: 1. No acute fracture. 2. 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 3. Erosive changes of the triquetrum. 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 4. Calcific densities adjacent to the ulnar styloid process. Given the erosive changes, considerations include gouty tophus. Remote injury is another consideration. 5. Soft tissue density adjacent to the distal radius. Gouty tophus is possible. Other causes of bursitis as well as ganglion cyst are other considerations. True soft tissue mass is a less likely consideration. Electronically signed by: Amilcar Cross MD (02/12/2020 11:34 AM) [id number]
== END ==
LOC: KCIC 08:02
PROVIDERS: ATTEND Family Medicine
DX: M70.11 Bursitis, right hand (principal); M18.9 Osteoarthritis of first carpometacarpal joint, unspecified; M67.431 Ganglion, right wrist; M85.841 Other specified disorders of bone density and structure, right hand
CPT/HCPCS: 73110